=== PATIENT | male | born 1975 | race Hispanic/Latino ===

== ENCOUNTER 2020-06-11 13:35 | Inpatient (IN) | payer OTHER, SELFPAY ==
[~2020-06-11 13:35] MED LIST: Iopamidol-370 76% 500 ML 1 ML ONE; PROPOFOL 200 MG/20 ML VIAL ONE; Rocuronium Bromide 10 MG/ML (10ML VIAL) ONE; Succinylcholine 200 MG/10 ml SYRINGE FS ONE
[2020-06-11] MEDS ORDERED: Acetaminophen 500 MG TAB ONE (13:49)
[2020-06-11] MEDS ORDERED: Aspirin Chewable 81 MG TAB ONE (13:51)
[2020-06-11] MEDS ORDERED: cefTRIAXone\\ROCEPHIN 1 GM VIAL ONE (13:51)
[2020-06-11] MEDS ORDERED: Dexamethasone 10 MG/ML VIAL ONE (13:51)
[2020-06-11] MEDS ORDERED: Azithromycin 500 MG VIAL ONE (13:51)
[2020-06-11 14:05] LABS: #Lymphocytes 0.5 thou/uL (1.20-3.40); #Monocytes 0.4 thou/uL (0.11-0.59); #Neutrophils 9.3 thou/uL (1.40-6.50); %Eosinophils 0.2 % (0.0-10.0); %Lymphocytes 5.3 % (21.0-51.0); %Monocytes 3.4 % (0.0-10.0); %Neutrophils 91.1 % (42.0-75.0); Hemoglobin 13.6 g/dL (14.0-18.0); Mean Corpuscular HGB CONC 34.4 g/dL (32.0-36.0); Mean Corpuscular Hemoglobin 29.8 pg (27.0-31.0); Mean Corpuscular Volume 86.7 fL (78.0-98.0); Mean Platelet Volume 5.5 fL (7.4-10.4); Platelet Count 241 thou/uL (130-400); RBC Distribution Width 11.6 % (11.5-14.5); Red Blood Cell (RBC) Count 4.55 mill/uL (4.70-6.10); White Blood Cell (WBC) Count 10.2 thou/uL (4.8-10.8)
[2020-06-11 14:11] LABS: PTT 28.8 sec (22.9-36.1); Prothrombin Time 13.1 sec (12.0-14.7)
[2020-06-11 14:12] LABS: D-Dimer Test 1.81 *mcg/mL (0.27-0.43)
[2020-06-11] MEDS ORDERED: Enoxaparin Sodium 60 MG/0.6 ML SYRINGE ONE (14:25)
[2020-06-11] MEDS ORDERED: Enoxaparin Sodium 30 MG/0.3 ML SYRINGE ONE (14:25)
[2020-06-11 14:29] LABS: ALT (SGPT) 100 U/L (8-55); AST (SGOT) 111 U/L (5-34); Albumin 3.4 g/dL (3.5-5.0); Alkaline Phosphatase 122 U/L (40-110); Anion Gap 20 mmol/L (10-20); BUN (Urea Nitrogen) 13 mg/dL (8.9-20.6); Bilirubin, Total 0.6 mg/dL (0.2-1.2); Calc. Creatinine Clearance 0 mL/min (70-130); Calcium 8.2 mg/dL (7.8-10.44); Carbon Dioxide 19 mmol/L (22-29); Chloride 98 mmol/L (98-107); Globulin 4.6 g/dL (2.4-3.5); Glucose 157 mg/dL (70-105); Potassium 4.6 mmol/L (3.5-5.1); Sodium 132 mmol/L (136-145)
[2020-06-11 14:42] LABS: CKMB 0.5 ng/mL (0-6.6)
--- NOTE | 2020-06-11 14:50 | RAD ---
PORTABLE CHEST ONE VIEW: 06/11/20 at 2 p.m. HISTORY: Shortness of breath, weakness, fever, cough, headache. FINDINGS: There are no previous exams for comparison. The heart size is borderline. Patchy opacity with patchy more typical opacities are seen in the lung arboleda bilaterally. No pneumothoraces or pleural effusions are seen. IMPRESSION: Findings are suspicious for multifocal pneumonia. POS: OFF
[2020-06-11 14:55] LABS: Bilirubin Negative (Negative); Blood, Urine 1+ (Negative); Clarity Turbid (Clear); Glucose, Urine (Dipstick) 50 mg/dL (Negative); Ketone, Urine Trace mg/dL (Negative); Leukocyte Negative Leu/uL (Negative); Nitrite Negative (Negative); Protein, Urine (Dipstick) 200 mg/dL (Neg-Trace); RBC/HPF 0-3 HPF (0-3); Specific Gravity, Urine 1.028 (1.002-1.036); Squamous Epithelial 0-3 HPF (0-3); Urobilinogen Normal mg/dL (Less than 2)
[2020-06-11 14:56] LABS: Bacteria/HPF 1+ HPF (None Seen)
--- NOTE | 2020-06-11 14:58 | PDOC.FPRHP ---
- History of Present Illness Chief Complaint: sob History of Present Illness: Patient is a 45M with no PMHx that presents to the ED with cc of dyspnea. He reports sob, cough, and fever since 06/07/20. Reportedly had sick contact with a COVID positive patient 10 days ago. Denies n/v/abdominal pain. He reports feeling extremely fatigued and having difficulty taking breaths today. He has only taken for CORRLAES's. He did take ciprofloxacin at the end of May due to feeling sinus congestion. He received the medication from [place] years ago. He has been tolerating PO intake and has good UOP. He endorsed 3 L per day of flui ds. He does not smoke tobacco. His and 2 children from [place] [place] are here for the holidays. ED Course: 1mg/kg lovenox, 1L NS, 1g tylenol, 324mg asa, 1g rocephin (6975), 6mg decadron IV, 500mg azithromycin IV (5649) - Allergies/Adverse Reactions Allergies Allergy/AdvReac Type Severity Reaction Status Date / Time No Known Allergies Allergy Verified 06/11/20 21:18 - History PMHx: None PSHx: None FHx: Mother - HTN, DM Social: Denies drug, alcohol, tobacco use - Review of Systems General: reports: fever/chills, fatigue. denies: weight/appetite/sleep changes Eyes: denies: eye pain, vision changes ENT: denies: nasal congestion, rhinorrhea Respiratory: reports: cough, congestion, shortness of breath Cardiovascular: denies: chest pain, palpitation, edema, orthopnea Gastrointestinal: denies: nausea, vomiting, diarrhea, constipation Genitourinary: denies: incontinence, dysuria Skin: denies: rashes, lesions Musculoskeletal: denies: pain, tenderness, stiffness Neurological: denies: numbness, syncope, seizure, weakness - Vital signs BP: [104/60] HR: [101] RR: [18] Tmax: [100.4F] Pox: [95]% on [HFNC] Wt: [92.99kg] - Physical Exam Constitutional: NAD, awake, alert and oriented -Constitutional: diaphoretic HEENT: PERRLA, EOMI Neck: FROM, no JVD Heart: normal S1/S2, no edema -Heart: regular rhythm, tachycardic -Lungs: bibasilar rales with good air movement Abdomen: soft, non-tender Musculoskeletal: normal structure, normal tone, ROM grossly normal Neurological: no focal deficit, CN II-XII intact, normal sensation Skin: no rash/lesions, good turgor, capillary refill <2 seconds Heme/Lymphatic: no unusual bruising or bleeding, no purpura, no petechia Psychiatric: normal mood and affect, good judgment and insight FMR H&P: Results - Labs Result Diagrams: 06/12/20 04:26 06/12/20 04:26 Lab results: WBC 10.2 thou/uL (4.8-10.8) 06/11/20 13:50 Hgb 13.6 g/dL (14.0-18.0) L 06/11/20 13:50 Hct 39.4 % (42.0-52.0) L 06/11/20 13:50 MCV 86.7 fL (78.0-98.0) 06/11/20 13:50 Plt Count 241 thou/uL (130-400) 06/11/20 13:50 Neutrophils % 91.1 % (42.0-75.0) H 06/11/20 13:50 Sodium 132 mmol/L (136-145) L 06/11/20 13:50 Potassium 4.6 mmol/L (3.5-5.1) 06/11/20 13:50 Chloride 98 mmol/L (98-107) 06/11/20 13:50 Carbon Dioxide 19 mmol/L (22-29) L 06/11/20 13:50 BUN 13 mg/dL (8.9-20.6) 06/11/20 13:50 Creatinine 0.89 mg/dL (0.7-1.3) 06/11/20 13:50 Glucose 157 mg/dL (70-105) H 06/11/20 13:50 Lactic Acid 3.0 mmol/L (0.5-2.2) H 06/11/20 13:50 Calcium 8.2 mg/dL (7.8-10.44) 06/11/20 13:50 Total Bilirubin 0.6 mg/dL (0.2-1.2) 06/11/20 13:50 AST 111 U/L (5-34) H 06/11/20 13:50 ALT 100 U/L (8-55) H 06/11/20 13:50 Alkaline Phosphatase 122 U/L (40-110) H 06/11/20 13:50 CK-MB (CK-2) 0.5 ng/mL (0-6.6) 06/11/20 13:51 B-Natriuretic Peptide 20.1 pg/mL (0-100) 06/11/20 13:44 Serum Total Protein 8.0 g/dL (6.0-8.3) 06/11/20 13:50 Albumin 3.4 g/dL (3.5-5.0) L 06/11/20 13:50 Urine Ketones Trace mg/dL (Negative) A 06/11/20 13:45 Urine Blood 1+ (Negative) A 06/11/20 13:45 Urine Nitrite Negative (Negative) 06/11/20 13:45 Ur Leukocyte Esterase Negative Shamir/uL (Negative) 06/11/20 13:45 Urine RBC 0-3 HPF (0-3) 06/11/20 13:45 Urine WBC 4-6 HPF (0-3) A 06/11/20 13:45 Ur Squamous Epith Cells 0-3 HPF (0-3) 06/11/20 13:45 Urine Bacteria 1+ HPF (None Seen) A 06/11/20 13:45 - EKG Interpretation EKG: sinus tach 110, FL 132, QRS 82, QTc 422, normal axis, no ST changes - Radiology Interpretation Chest x-ray Status: image reviewed by me, report reviewed by me (multifocal pna) CT scan - chest Status: image reviewed by me, report reviewed by me Additional comment: no evidence of PE FMR H&P: A/P - Plan Patient is a 45M with no PMHx admitted for: #Acute hypoxic respiratory failure 2/2 COVID PNA -CXR demonstrates multifocal pna -Given rocephin and azithromycin in the ED, continue pending procal. Would only continue ceftriaxone if procal positive. -6mg decadron in ED, continue -continue daily lovenox -protonix for GI ppx while on decadron -convalescent plasma not indicated -consider remdesivir, though liver enzymes elevated -HFNC, will wean as tolerated #Transaminitis -uncertain etiology, likely 2/2 COVID -denies alcohol use -Will get hep panel #Hyponatremia -sodium 132 -likely 2/2 SIADH related to illness -will continue to monitor #Elevated lactic acid -lactic 3.0, repeat pending -IV maintenance fluids until patient can improve po intake #Normocytic Anemia -H/H 13.6/39.4 -iron studies, B12, folate pending #Elevated troponin -trop 0.066 -patient denies chest pain -EKG demonstrates no ST changes -Will trend Diet: Regular Fluids: LR 120 mls/hr DVT ppx: lovenox Code: Full PCP: [facility] Call Dispo: admitted for respiratory support for acute hypoxic respiratory failure 2/2 COVID pna to telemetry inpatient. FMR H&P: Upper Level - Plan Date/Time: 06/11/20 1458 I, [], have evaluated this patient and agree with findings/plan as outlined by internal auditor resident. Pertinent changes/additions are listed here. Addendum - Attending - Attending Attestation Date/Time: 06/11/20 1600 I personally evaluated the patient and discussed the management with Dr. Adams/Boo/Abhijeet. I agree with the History, Examination, Assessment and Plan documented above with any addition or exceptions noted below. Patient here with 3 days of increasing shortness of breath and malaise. Positive COVID contact recently. On presentation, he was found to be hypoxic with improvement on HFNC. He is currently resting comfortably, reports breathing much improved. CXR c/w multifocal PNA, COVID positive. INdeterminate troponins, elevated Dimer. ABG shows normal oxygenation on current settings. Patient will be admitted to [facility] for Acute hypoxic resp failure 2/2 COVID pneumonia. IVF, ppx lovenox, Remdesevir, steroids. His LFT elevation is likely 2/2 COVID but will trend. Wean O2 as tolerated. Symptomatic treatment as needed.
[2020-06-11] MEDS ORDERED: Ondansetron PF 4 MG/2 ML Vial IVP PRN (15:01)
[2020-06-11] MEDS ORDERED: Ondansetron ODT 4 MG TAB PO PRN (15:01)
[2020-06-11 15:05] LABS: Actual Bicarbonate (HCO3a) 19.4 mEq/L (22-28); Analyzer IN Cardio ER; Base Excess (BEa) -2.2 mEq/L (-2.0 to +3.0); Calcium, Ionized (arterial) 1.04 mmol/L (1.12-1.30); Carboxyhemoglobin (COHb) 0.3 gm% (0.0-3.0); Hemoglobin (Hb) 12.5 g/dL (14.0-18.0); O2 Tension (PaO2), arterial 65.4 mmHg (80.0-100.0); Potassium - ABG Lab 3.77 mmol/L (3.70-5.30); pH, Arterial 7.51 (7.35-7.45)
[2020-06-11 15:07] LABS: SARS-CoV-2 NAA Rapid Test DETECTED (NotDetected)
[2020-06-11] MEDS ORDERED: Guaifenesin DM 100-10/5 ML UDCUP PO PRN (15:09)
[2020-06-11 15:13] LABS: CO2 Tension 25.2 mmHg (35.0-45.0); Puncture Site LRA
[2020-06-11] MEDS ORDERED: REMDESIVIR (EUA) 200 MG in Sodium Chloride 0.9% 250 ML 210 ML IV SCH (16:00)
--- NOTE | 2020-06-11 16:08 | CT ---
CT arteriogram chest with IV contrast and 3-D imaging HISTORY: Dyspnea. FINDINGS: There is good contrast opacification pulmonary arteries and thoracic aorta with normal bran kiesha of the great vessels at the aortic arch. Borderline size reactive appearing lymph nodes are scattered about the mediastinum. Involving each lobe is hazy groundglass opacity, somewhat confluent and predominantly peripheral. Low er lobes greater than upper. No pleural fluid. No lobar consolidation or pneumothorax. IMPRESSION : No evidence of pulmonary embolus. Extensive Multifocal groundglass infiltrates. Correlate for COVID pneumonitis.
[2020-06-11 16:59] LABS: Lactic Acid 1.3 mmol/L (0.5-2.2)
[2020-06-11 17:02] LABS: Iron 13 ug/dL (65-175); Iron Binding Capacity, Total 175 mcg/dL (261-462)
[2020-06-11 17:31] LABS: HBCM Index 0.07 S/CO (0-0.79); Hep A IgM AB Non-Reactive (NonReactive); Hep A IgM S/CO 0.28 S/CO (0-0.79); Hep B Surf Ag Non-Reactive S/CO (NonReactive); Hep C IgG Ab Non-Reactive (NonReactive); Hep C Index 0.08 S/CO (0-0.79); Hepatitis B Core IgM Abs Non-Reactive (NonReactive)
[2020-06-11] MEDS: Lactated Ringer's 1,000 ML IV SCH (17:49)
[2020-06-11 18:15] LABS: Ferritin 3441.4 ng/mL (22-322)
[2020-06-11] MEDS: Acetaminophen 500 MG TAB PO SCH (18:23)
[2020-06-11 20:32] LABS: Troponin I 0.064 ng/mL (< 0.028)
[2020-06-11] MEDS ORDERED: Sodium Chloride 0.9% 1,000 ML IV SCH (22:30)
[2020-06-12] MEDS: Mometasone 200 MCG/Formoterol 5 MCG 120 PUFF INHALER INH SCH ×3 (00:28→17:22)
[2020-06-12] MEDS: Albuterol 200 PUFF (6.7GM INHALER) INH SCH ×8 (00:28→23:00)
[2020-06-12] MEDS: Acetaminophen 500 MG TAB PO SCH ×4 (00:31→17:23)
[2020-06-12] MEDS: Lactated Ringer's 1,000 ML IV SCH ×3 (03:43→18:47)
[2020-06-12 05:05] LABS: #Lymphocytes 0.6 thou/uL (1.20-3.40); #Monocytes 0.4 thou/uL (0.11-0.59); #Neutrophils 9.5 thou/uL (1.40-6.50); %Eosinophils 0.1 % (0.0-10.0); %Lymphocytes 5.7 % (21.0-51.0); %Monocytes 3.9 % (0.0-10.0); %Neutrophils 90.3 % (42.0-75.0); Hemoglobin 12.3 g/dL (14.0-18.0); Hemoglobin A1c 5.6 % (4.0-6.0); Mean Corpuscular Hemoglobin 29.2 pg (27.0-31.0); Mean Corpuscular Volume 88.3 fL (78.0-98.0); Mean Platelet Volume 7.9 fL (7.4-10.4); Platelet Count 257 thou/uL (130-400); RBC Distribution Width 11.5 % (11.5-14.5); Red Blood Cell (RBC) Count 4.21 mill/uL (4.70-6.10); White Blood Cell (WBC) Count 10.6 thou/uL (4.8-10.8)
[2020-06-12 05:27] LABS: ALT (SGPT) 74 U/L (8-55); AST (SGOT) 65 U/L (5-34); Alkaline Phosphatase 101 U/L (40-110); Anion Gap 15 mmol/L (10-20); BUN (Urea Nitrogen) 16 mg/dL (8.9-20.6); Bilirubin, Total 0.4 mg/dL (0.2-1.2); Calc. Creatinine Clearance 173 mL/min (70-130); Calcium 8.1 mg/dL (7.8-10.44); Carbon Dioxide 21 mmol/L (22-29); Chloride 106 mmol/L (98-107); Globulin 3.4 g/dL (2.4-3.5); Glucose 152 mg/dL (70-105); Protein, Total 6.4 g/dL (6.0-8.3); Sodium 138 mmol/L (136-145)
--- NOTE | 2020-06-12 06:36 | PDOC.FM ---
- Subjective Subjective: Pt is similar in appearance to yesterday. He is on high flow oxygen. He is not short of breath nor tachypneic. He has not attempted proning. He denies fever, chills. Endorsed hemoptysis. - Objective Vital Signs & Weight: Vital Signs (12 hours) Temp Pulse Resp BP Pulse Ox 06/12/20 03:53 98.1 F 83 18 135/76 94 L 06/12/20 00:43 98.5 F 81 18 123/69 94 L 06/11/20 21:26 99.6 F 74 18 134/63 100 06/11/20 20:00 100 Weight Weight 94.347 kg I&O: 06/10/20 06/11/20 06/12/20 06:59 06:59 06:59 Intake Total 2600 Output Total 875 Balance 1725 Result Diagrams: 06/12/20 04:26 06/12/20 04:26 Phys Exam - Physical Examination Constitutional: NAD HEENT: PERRLA, sclera anicteric Neck: no JVD, full ROM Respiratory: no wheezing, no rales, no rhonchi Cardiovascular: RRR, no significant murmur Gastrointestinal: soft, no distention Musculoskeletal: no edema, pulses present Neurological: normal sensation, moves all 4 limbs Psychiatric: normal affect, A&O x 3 Skin: no rash, cap refill <2 seconds Dx/Plan - Plan Plan: Patient is a 45M with no PMHx admitted for: #Acute hypoxic respiratory failure 2/2 COVID PNA -will start ceftriaxone -continue remdesivir -continue dexamethasone -continue high flow and prone as needed -scheduled tylenol -LR 120mls/hr -encourage PO intake -CTA negative #Transaminitis - improving -uncertain etiology, likely 2/2 COVID -denies alcohol use -hep panel neg #Hyponatremia - resolved -likely 2/2 SIADH related to illness -will continue to monitor #Normocytic Anemia -H/H 13.6/39.4 -assess in oupt setting when pt is not critically ill #Demand Ischemia - indeterminate trop Diet: Regular Fluids: LR 120 mls/hr DVT ppx: lovenox Code: Full PCP: [facility] Call Dispo: admitted for respiratory support for acute hypoxic respiratory failure 2/2 COVID pna to telemetry inpatient. Addendum - Attending - Attending Attestation Date/Time: 06/12/20 2198 I personally evaluated the patient and discussed the management with Dr. Haddad. I agree with the History, Examination, Assessment and Plan documented above with any addition or exceptions noted below. Patient feeling somewhat better today, reports respiratory status much improved. Continues to require HFNC at high FiO2, but low normal sats achieved. Continue steroids, Remdesevir. Wean as tolerated. He did report some coughing of blood tinged sputum this morning. Will continue to monitor.
[2020-06-12] MEDS: Dexamethasone 4 MG TAB PO SCH (08:28)
[2020-06-12] MEDS ORDERED: Enoxaparin Sodium 40 MG/0.4 ML SYRINGE SC SCH (09:00)
[2020-06-12] MEDS ORDERED: cefTRIAXone Sodium 1 MG in Syringe 0 ML IVPB SCH (11:00)
[2020-06-12] MEDS: cefTRIAXone\\ROCEPHIN 1 GM in Sodium Chloride 0.9% 100 ML IVPB SCH (14:05)
[2020-06-12] MEDS: REMDESIVIR (EUA) 100 MG in Sodium Chloride 0.9% 250 ML 230 ML IV SCH (17:22)
[2020-06-13] MEDS: Acetaminophen 500 MG TAB PO SCH ×4 (00:13→18:30)
[2020-06-13] MEDS: Lactated Ringer's 1,000 ML IV SCH ×3 (01:35→18:04)
[2020-06-13] MEDS: Albuterol 200 PUFF (6.7GM INHALER) INH SCH ×6 (02:45→22:21)
[2020-06-13] MEDS: Mometasone 200 MCG/Formoterol 5 MCG 120 PUFF INHALER INH SCH ×2 (05:29→18:53)
--- NOTE | 2020-06-13 06:49 | PDOC.FM ---
- Subjective Subjective: Pt is 45 yo male who was in respiratory distress this morning. Team notified and ordered a CXR, ABG, CBC, BMP. Flynn weiner called shortly after due to oxygen saturations 60-80%. He was transferred to ICU and started on Bipap. He was given ativan 0.5 mg for anxiety. - Objective Vital Signs & Weight: Vital Signs (12 hours) Temp Pulse Resp BP Pulse Ox 06/13/20 04:00 97.8 F 86 18 144/78 H 90 L 06/13/20 00:13 99.1 F 06/12/20 23:56 99.1 F 93 18 120/72 95 06/12/20 20:30 92 L 06/12/20 20:00 98.1 F 93 18 125/70 88 L Weight Weight 97.522 kg I&O: 06/11/20 06/12/20 06/13/20 06:59 06:59 06:59 Intake Total 2600 3575 Output Total 875 1300 Balance 1725 2275 Result Diagrams: 06/13/20 06:56 06/13/20 06:56 Radiology Reviewed by me: Yes Phys Exam - Physical Examination uncomfortable appearing HEENT: moist MMs, sclera anicteric Neck: no JVD, full ROM Respiratory: no wheezing, no rhonchi bibasilar rhonchi Cardiovascular: RRR, no significant murmur Gastrointestinal: soft, no distention Neurological: non-focal, normal sensation Psychiatric: normal affect, A&O x 3 Skin: no rash, cap refill <2 seconds Dx/Plan - Plan Plan: Patient is a 45M with no PMHx admitted for: #Acute hypoxic respiratory failure 2/2 COVID PNA -ceftriaxone, steroids, remdesivir; not candidate for conv plasma -nursing staff note he is desat'ing on high flow. Discussed need to prone. Will order ABG, BMP, CBC, CXR this am. -pulm consulted, appreciate recs #Transaminitis - improving -uncertain etiology, likely 2/2 COVID -denies alcohol use -hep panel neg #Hyponatremia - resolved -likely 2/2 SIADH related to illness -will continue to monitor #Normocytic Anemia -H/H 13.6/39.4 -assess in oupt setting when pt is not critically ill #Demand Ischemia - indeterminate trop Diet: Regular Fluids: D/C fluids, Good PO intake DVT ppx: lovenox Code: Full PCP: [facility] Call Dispo: admitted for respiratory support for acute hypoxic respiratory failure / COVID pna to imcu Addendum - Attending - Attending Attestation Date/Time: 06/13/20 5616 I personally evaluated the patient and discussed the management with Dr. Haddad. I agree with the History, Examination, Assessment and Plan documented above with any addition or exceptions noted below. Patient with worsening hypoxia and agitation this morning. Transitioned to Bipap and to the IMCU, but then had worsening and would not tolerate the Bipap mask. He was intubated in a code blue situation in the CCU. He will be proned by Pulm and continued on vent. Continue COVID care.
[2020-06-13 07:10] LABS: Actual Bicarbonate (HCO3a) 20.5 mEq/L (22-28); Base Excess (BEa) -0.4 mEq/L (-2.0 to +3.0); Calcium, Ionized (arterial) 1.15 mmol/L (1.12-1.30); Carboxyhemoglobin (COHb) 0.5 gm% (0.0-3.0); Hemoglobin (Hb) 13.4 g/dL (14.0-18.0); pH, Arterial 7.54 (7.35-7.45)
[2020-06-13 07:25] LABS: #Basophils 0.1 thou/uL (0.0-0.2); #Lymphocytes 0.5 thou/uL (1.20-3.40); #Monocytes 0.6 thou/uL (0.11-0.59); #Neutrophils 12.2 thou/uL (1.40-6.50); %Basophils 0.7 % (0.0-1.0); %Eosinophils 0.1 % (0.0-10.0); %Lymphocytes 3.4 % (21.0-51.0); %Monocytes 4.4 % (0.0-10.0); %Neutrophils 91.4 % (42.0-75.0); Hemoglobin 12.6 g/dL (14.0-18.0); Mean Corpuscular HGB CONC 34.2 g/dL (32.0-36.0); Mean Corpuscular Volume 87.7 fL (78.0-98.0); Platelet Count 275 thou/uL (130-400); RBC Distribution Width 11.8 % (11.5-14.5); White Blood Cell (WBC) Count 13.3 thou/uL (4.8-10.8)
[2020-06-13 07:40] LABS: Anion Gap 17 mmol/L (10-20); BUN (Urea Nitrogen) 15 mg/dL (8.9-20.6); Calc. Creatinine Clearance 192 mL/min (70-130); Calcium 7.9 mg/dL (7.8-10.44); Carbon Dioxide 21 mmol/L (22-29); Chloride 108 mmol/L (98-107); Glucose 151 mg/dL (70-105); Potassium 3.6 mmol/L (3.5-5.1); Sodium 142 mmol/L (136-145)
[2020-06-13 07:41] LABS: CO2 Tension 24.4 mmHg (35.0-45.0); O2 Tension (PaO2), arterial 35.1 mmHg (80.0-100.0)
[2020-06-13 07:42] LABS: Puncture Site RRA
[2020-06-13] MEDS: Lorazepam 2 MG/ML VIAL ONE ×2 (07:43→07:44)
[2020-06-13] MEDS ORDERED: Lorazepam 2 MG/ML VIAL SLOW IVP SCH (08:00)
--- NOTE | 2020-06-13 08:02 | RAD ---
Chest one view HISTORY: Hypoxia. COMPARISON: 06/11/2020. FINDINGS: Cardiac silhouette is magnified and now more obscured by widespread groundglass and patchy infiltrate throughout each lung. Pulmonary vasculature also predominantly obscured. Widespread air bronchograms. Partial obscuration of the hemidiaphragms. No significant pleural fluid. No evidence of pneumothorax. IMPRESSION : Worsening radiographic appearance of widespread infiltrates.
--- NOTE | 2020-06-13 08:41 | CON ---
DATE OF CONSULTATION: 06/13/2020 TIME SPENT: 35 minutes of critical care time. HISTORY OF PRESENT ILLNESS: I have been consulted by the resident to see Mr. Vincent, who is a 45-year-old male with COVID pneumonia, who was initially symptomatic on 06/07/2020 with presenting symptom of fever. He was hospitalized here on 06/11/2020. He has had progressive worsening of his O2 sats. He was brought to the ICU today and placed on BiPAP. He is extremely tachypneic, and I feel at some point, will probably end up intubate him. PAST MEDICAL HISTORY: Essentially negative up to the time of admission. PAST SURGICAL HISTORY: None. FAMILY MEDICAL HISTORY: Remarkable for high blood pressure and diabetes. SOCIAL HISTORY: He is a nonsmoker. Does not consume alcohol. Does not use illicit drugs. 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 ALLERGIES: NONE. REVIEW OF SYSTEMS: Twelve-point review of systems was negative except for his COVID symptoms. PHYSICAL EXAMINATION: VITAL SIGNS: Temperature 97.8; pulse 86; respirations in the 40s; O2 saturation dropping as low as 60 on nasal cannula, now up to 95% on 80% BiPAP; blood pressure 144/78. GENERAL: The patient is an obese male, who is on BiPAP. He is 5 feet 6 inches, weight is 215 pounds with a BMI of 34. HEENT: Unremarkable. NECK: No adenopathy or JVD. LUNGS: Diffuse crackles. CARDIOVASCULAR: S1 and S2. Slightly tachycardic. No murmur. ABDOMEN: Soft, nontender, and nondistended. EXTREMITIES: No clubbing, cyanosis, or edema. No visible rashes. LABORATORY DATA: ABG; pH 7.54, pCO2 of 24, pO2 of 35, that was on 60% high-flow nasal cannula. White blood cell count 13.2, hematocrit 36.9, and platelet count 275. His sodium is 142, potassium 3.6, chloride 108, CO2 of 21, BUN 15, creatinine 0.6, and glucose 151. His x-ray shows diffuse bilateral infiltrates. ASSESSMENT: 1. COVID-19 pneumonia - severe with acute hypoxic respiratory failure. 2. Probable underlying diabetes mellitus. 3. Obesity. PLAN: 1. We will try the BiPAP and see how he does. I would not be surprised at all if he ends up needing to be intubated. 2. He is currently on remdesivir and is scheduled to finish that on 06/15. 3. I have increased his anticoagulation. 4. We have increased his steroids. 5. Add vitamin D, vitamin C, and zinc if available. 6. Try Precedex drip. Job ID: [id number]
[2020-06-13] MEDS: Dexamethasone 4 mg/ml Vial SLOW IVP SCH ×2 (08:49→20:07)
[2020-06-13] MEDS: Zinc Sulfate 220 MG CAP PO SCH (08:50)
[2020-06-13] MEDS ORDERED: Lorazepam 2 MG/ML VIAL ONE (10:08)
[2020-06-13] MEDS ORDERED: Ventilator Sedation Protocol 1 EACH FS ONE ×2 (10:12→10:44)
[2020-06-13] MEDS ORDERED: Electrolyte Replacement Protocol 1 EACH FS ONE (10:44)
[2020-06-13] MEDS ORDERED: Rocuronium Bromide 10 MG/ML (10ML VIAL) IVP PRN (10:44)
[2020-06-13] MEDS ORDERED: Propofol 1,000 MG/100 ML VIAL IV PRN (10:45)
[2020-06-13] MEDS ORDERED: Morphine 2 MG/ML VIAL SLOW IVP PRN ×2 (10:45)
[2020-06-13] MEDS ORDERED: fentaNYL Citrate/PF 2,000 MCG in Sodium Chloride 0.9% 60 ML IV SCH (10:45)
[2020-06-13] MEDS ORDERED: DISCONTINUE PREVIOUS NARCOTIC PAIN MEDICATIONS AND BENZODIAZEPINES FS SCH (10:45)
[2020-06-13] MEDS ORDERED: Propofol BOLUS 1,000 MG/100 ML VIAL IV PRN ×2 (10:45)
[2020-06-13] MEDS ORDERED: Lorazepam 2 MG/ML VIAL SLOW IVP PRN (10:45)
[2020-06-13] MEDS ORDERED: Fentanyl BOLUS 250 ML IVPB PRN ×2 (10:45)
--- NOTE | 2020-06-13 10:47 | RAD ---
EXAM: XR Chest 1 View Portable PROVIDED CLINICAL HISTORY: Respiratory insufficiency COMPARISON: 06/23/2020 7:38 AM FINDINGS: Interval placement of endotracheal tube, tip of which projects in the region of the thoracic inlet. I nterval placement of enteric catheter, the tip of which is not visualized but is below the diaphragm. Additional significant interval change with respect to the prior examination is not appare nt. IMPRESSION: As above.
[2020-06-13] MEDS: Enoxaparin Sodium 80 MG/0.8 ML SYRINGE SC SCH ×2 (10:53→20:08)
[2020-06-13] MEDS: Ascorbic Acid 500 mg Chewable Tablet PO SCH (10:53)
[2020-06-13] MEDS ORDERED: Electrolyte Replacement Protocol FS PRN (11:00)
--- NOTE | 2020-06-13 11:09 | OP ---
DATE OF PROCEDURE: 06/13/2020 The patient took off his BiPAP mask and subsequently desatted to the point where he needed to be intubated. I preoxygenate him with 100% FiO2 and intubated him with a 7.5 endotracheal tube via GlideScope after giving him a total of 20 mg of etomidate IV and 100 mg succinylcholine. An OG tube was placed. X-ray confirmed tube placement. The patient was placed on mechanical ventilation. He will also be placed in a prone position. Condition is critical. Job ID: [id number]
--- NOTE | 2020-06-13 11:29 | PDOC.EVN ---
Event Note - Event Note Event Note: Pt did not tolerate Bipap, remained hypoxic. He was very anxioius likely 2/2 hypoxia. ABG before bipap revealed pO2 in 30's. Code Blue initiated and pt was intubated by Dr. Sommer. Currently proned. CXR revealed good placement of ET tube, NG tube. Transfer to ICU status. Castanon placed. Sat's were trending up with ventilator.
[2020-06-13] MEDS: Dexamethasone 4 MG TAB PO SCH (11:50)
[2020-06-13] MEDS: Vecuronium 10 MG VIAL IVP PRN ×4 (12:41→17:17)
[2020-06-13] MEDS: Lorazepam 2 MG/ML VIAL SLOW IVP PRN (12:41)
[2020-06-13] MEDS: Propofol 1,000 MG/100 ML VIAL IV PRN ×3 (14:49→21:48)
[2020-06-13] MEDS: cefTRIAXone\\ROCEPHIN 1 GM in Sodium Chloride 0.9% 100 ML IVPB SCH (15:50)
[2020-06-13] MEDS: REMDESIVIR (EUA) 100 MG in Sodium Chloride 0.9% 250 ML 230 ML IV SCH (18:04)
[2020-06-13] MEDS: Cholecalciferol 1,000 UNITS (25 MCG) TAB PO SCH (20:08)
[2020-06-14] MEDS: Acetaminophen 500 MG TAB PO SCH ×4 (00:18→20:02)
[2020-06-14] MEDS: Propofol 1,000 MG/100 ML VIAL IV PRN ×8 (01:07→22:00)
[2020-06-14] MEDS: Albuterol 200 PUFF (6.7GM INHALER) INH SCH ×6 (02:55→22:10)
[2020-06-14] MEDS: Vecuronium 10 MG VIAL IVP PRN ×9 (03:54→23:46)
[2020-06-14 04:22] LABS: Anion Gap 14 mmol/L (10-20); BUN (Urea Nitrogen) 16 mg/dL (8.9-20.6); Calc. Creatinine Clearance 179 mL/min (70-130); Calcium 7.7 mg/dL (7.8-10.44); Carbon Dioxide 23 mmol/L (22-29); Chloride 110 mmol/L (98-107); Glucose 172 mg/dL (70-105); Potassium 3.9 mmol/L (3.5-5.1); Sodium 143 mmol/L (136-145)
[2020-06-14 04:27] LABS: Band 17 % (5-11); Hemoglobin 11.4 g/dL (14.0-18.0); Lymphocytes 3 % (21-51); MDiff Complete? YES; Mean Corpuscular Hemoglobin 30.2 pg (27.0-31.0); Mean Corpuscular Volume 88.7 fL (78.0-98.0); Mean Platelet Volume 8.3 fL (7.4-10.4); Monocytes 3 % (0-10); Neutrophil 77 % (42-75); Platelet Count 229 thou/uL (130-400); Platelet Morphology Comment Appears Adequate; RBC Distribution Width 11.9 % (11.5-14.5); Red Blood Cell (RBC) Count 3.79 mill/uL (4.70-6.10); White Blood Cell (WBC) Count 10.1 thou/uL (4.8-10.8)
[2020-06-14] MEDS: fentaNYL Citrate/PF 2,000 MCG in Sodium Chloride 0.9% 60 ML IV SCH (06:01)
--- NOTE | 2020-06-14 07:05 | PDOC.FM ---
- Subjective Subjective: Intubated and sedated. Required paralytics due to severe agitation. Discussed care with on 06/13. - Objective Vital Signs & Weight: Vital Signs (12 hours) Temp Resp Pulse Ox 06/14/20 06:00 26 H 06/14/20 04:00 26 H 06/14/20 02:00 99.2 F 26 H 06/14/20 00:00 26 H 06/13/20 22:00 26 H 06/13/20 20:00 96.9 F L 26 H 100 Weight Admit Weight 94.347 kg Weight 89.9 kg Most Recent Monitor Data Heart Rate from ECG 81 NIBP 110/67 NIBP BP-Mean 81 Respiration from ECG 26 SpO2 94 I&O: 06/13/20 06/14/20 06/15/20 06:59 06:59 06:59 Intake Total 3575 1056.2 Output Total 1300 1785 Balance 2275 -728.8 Result Diagrams: 06/14/20 03:10 06/14/20 03:10 Phys Exam - Physical Examination intubated and sedated HEENT: sclera anicteric Neck: no JVD, full ROM Respiratory: no wheezing, clear to auscultation bilateral Cardiovascular: RRR, no significant murmur Gastrointestinal: no distention, positive bowel sounds Skin: no rash, cap refill <2 seconds Dx/Plan - Plan Plan: Patient is a 45M with no PMHx admitted for: #Acute hypoxic respiratory failure 2/2 COVID PNA Currently intubated and sedated -ceftriaxone, steroids, remdesivir; procal pending -Vit D, Vit C -pulm consulted, appreciate recs -OG tube will be placed today, will need to start diet #Transaminitis - improving -uncertain etiology, likely 2/2 COVID -denies alcohol use -hep panel neg #Hyponatremia - resolved -likely 2/2 SIADH related to illness -will continue to monitor #Normocytic Anemia -H/H 13.6/39.4 -assess in oupt setting when pt is not critically ill #Demand Ischemia - indeterminate trop Diet: Tube feeds, digital strategy director consulted Fluids: D/C fluids DVT ppx: lovenox Code: Full PCP: [facility] Call Dispo: admitted for respiratory support for acute hypoxic respiratory failure 2/2 COVID pna to icu Addendum - Attending - Attending Attestation Date/Time: 06/14/20 1046 I personally evaluated the patient and discussed the management with Dr. Haddad. I agree with the History, Examination, Assessment and Plan documented above with any addition or exceptions noted below. Patient here with hypoxic resp failure 2/2 COVID. Decompensated yesterday and had to be intubated. Now on ventilator, having critical illness due to COVID. His status is overall stable at this time. Having some issues with agitation, will add benzo therapy in case he has a history of alcoholism which may be co ntributing to his agitation. Pulm on board. Continue steroids.
[2020-06-14] MEDS: Mometasone 200 MCG/Formoterol 5 MCG 120 PUFF INHALER INH SCH ×2 (07:30→18:56)
[2020-06-14] MEDS ORDERED: Sterile Water 10 ML ONE (07:44)
[2020-06-14] MEDS: Lorazepam 2 MG/ML VIAL SLOW IVP PRN ×5 (07:53→15:39)
--- NOTE | 2020-06-14 08:35 | RAD ---
Portable frontal chest radiograph: 06/14/2020 COMPARISON: 06/13/2020 HISTORY: Pneumonia FINDINGS: Stable endotracheal tube. Rotation to the left limits detailed assessment. There is severe airspace disease in the perihilar regions and both lung bases, left greater than right. Findings have markedly worsened when compared to the 06/11/2020 examination bilaterally and are worsened when co mpared to the prior study performed at 06/13/2020 at 10:25 AM. The nasogastric tube has been removed. IMPRESSION: Worsening extensive airspace disease as detailed above.
--- NOTE | 2020-06-14 09:33 | PRG ---
DATE OF SERVICE: 06/14/2020 35 minutes critical time. SUBJECTIVE: The patient remains prone on mechanical ventilation. I have told he sat up and pulled out his NG-tube yesterday, and it is yet to be replaced. OBJECTIVE: VITAL SIGNS: Temperature 100.2, pulse 71, blood pressure 114/65. 24-hour intake 1056, output 1785. HEENT: Unremarkable. NECK: No adenopathy or JVD. LUNGS: Inspiratory crackles bilaterally. CARDIAC: S1, S2. Regular. ABDOMEN: Soft. EXTREMITIES: No edema. LABORATORY DATA: White blood cell count 10, hematocrit 33.6, platelet count 229. Sodium 143, potassium 3.9, chloride 110, CO2 of 23, BUN 16, creatinine 0.7, glucose 172. Chest x-ray continues to show bilateral infiltrates. ASSESSMENT: 1. Coronavirus disease 2019 pneumonia. 2. Acute hypoxic respiratory failure. 3. Morbid obesity. 4. Hyperglycemia, aggravated by steroid use. PLAN: 1. Continue anticoagulation, steroid. 2. Continue prone position next 24 hours. I have reduced his high PEEP pressure to 28, as that gave him continued appropriate tidal volumes of around 600 mL. 3. We will add lactated Ringer's, so I have switched from D5 half-normal saline. Once his OG tube is replaced, then he needs to start enteral tube feeds. Job ID: [id number]
[2020-06-14] MEDS: Ascorbic Acid 500 mg Chewable Tablet PO SCH (09:40)
[2020-06-14] MEDS: Dexamethasone 4 mg/ml Vial SLOW IVP SCH ×2 (09:41→20:02)
[2020-06-14] MEDS: Pantoprazole 40 MG VIAL IVP SCH (09:44)
[2020-06-14] MEDS: Enoxaparin Sodium 80 MG/0.8 ML SYRINGE SC SCH ×2 (09:44→20:04)
[2020-06-14] MEDS: Dextrose 5 %-0.45 % NaCl 1,000 ML IV SCH (09:45)
[2020-06-14] MEDS: Zinc Sulfate 220 MG CAP PO SCH (09:45)
[2020-06-14] MEDS: Lorazepam 2 MG/ML VIAL SLOW IVP SCH ×3 (11:45→23:46)
[2020-06-14] MEDS: cefTRIAXone\\ROCEPHIN 1 GM in Sodium Chloride 0.9% 100 ML IVPB SCH (13:54)
[2020-06-14] MEDS: Lactated Ringer's 1,000 ML IV SCH ×2 (14:56→20:04)
[2020-06-14] MEDS: REMDESIVIR (EUA) 100 MG in Sodium Chloride 0.9% 250 ML 230 ML IV SCH (17:48)
[2020-06-14] MEDS: Cholecalciferol 1,000 UNITS (25 MCG) TAB PO SCH (20:02)
[2020-06-15] MEDS: Acetaminophen 500 MG TAB PO SCH ×4 (01:30→17:50)
[2020-06-15] MEDS: fentaNYL Citrate/PF 2,000 MCG in Sodium Chloride 0.9% 60 ML IV SCH ×2 (01:40→21:17)
[2020-06-15] MEDS: Propofol 1,000 MG/100 ML VIAL IV PRN ×7 (01:41→22:00)
[2020-06-15] MEDS: Dextrose 5 %-0.45 % NaCl 1,000 ML IV SCH ×2 (01:48→11:30)
[2020-06-15] MEDS: Albuterol 200 PUFF (6.7GM INHALER) INH SCH ×6 (02:59→23:30)
[2020-06-15 04:43] LABS: #Lymphocytes 0.3 thou/uL (1.20-3.40); #Monocytes 0.3 thou/uL (0.11-0.59); #Neutrophils 9.5 thou/uL (1.40-6.50); %Basophils 0.1 % (0.0-1.0); %Eosinophils 0.1 % (0.0-10.0); %Lymphocytes 3.2 % (21.0-51.0); %Monocytes 3.2 % (0.0-10.0); %Neutrophils 93.4 % (42.0-75.0); Hemoglobin 11.5 g/dL (14.0-18.0); Mean Corpuscular HGB CONC 32.6 g/dL (32.0-36.0); Mean Corpuscular Hemoglobin 29.2 pg (27.0-31.0); Mean Corpuscular Volume 89.5 fL (78.0-98.0); Mean Platelet Volume 8.2 fL (7.4-10.4); Platelet Count 251 thou/uL (130-400); Red Blood Cell (RBC) Count 3.93 mill/uL (4.70-6.10); White Blood Cell (WBC) Count 10.1 thou/uL (4.8-10.8)
[2020-06-15] MEDS: Lactated Ringer's 1,000 ML IV SCH ×3 (04:47→19:15)
[2020-06-15 05:04] LABS: Anion Gap 13 mmol/L (10-20); BUN (Urea Nitrogen) 14 mg/dL (8.9-20.6); Calc. Creatinine Clearance 180 mL/min (70-130); Calcium 7.4 mg/dL (7.8-10.44); Carbon Dioxide 24 mmol/L (22-29); Chloride 108 mmol/L (98-107); Glucose 181 mg/dL (70-105); Potassium 4.2 mmol/L (3.5-5.1); Sodium 141 mmol/L (136-145)
[2020-06-15] MEDS: Lorazepam 2 MG/ML VIAL SLOW IVP SCH ×3 (05:52→17:50)
--- NOTE | 2020-06-15 06:48 | PDOC.FM ---
- Subjective Subjective: Overnight, the patient fevered to 100.8F. No other events per nursing or night team. Patient currently ventilated, sedated and proned. - Objective MAR Reviewed: Yes Vital Signs & Weight: Vital Signs (12 hours) Temp Pulse Resp BP Pulse Ox 06/15/20 06:00 26 H 06/15/20 05:54 99.9 F H 06/15/20 04:00 26 H 06/15/20 03:00 70 06/15/20 02:00 100.8 F H 26 H 06/15/20 01:30 100.8 F H 06/15/20 00:00 26 H 06/14/20 22:10 73 115/66 06/14/20 22:00 26 H 06/14/20 20:00 98.8 F 26 H 98 06/14/20 18:57 67 Weight Admit Weight 94.347 kg Weight 91 kg Most Recent Monitor Data Heart Rate from ECG 70 NIBP 114/67 NIBP BP-Mean 82 Respiration from ECG 26 SpO2 96 I&O: 06/13/20 06/14/20 06/15/20 06:59 06:59 06:59 Intake Total 3575 1056.2 1750.9 Output Total 1300 1785 1420 Balance 2275 -728.8 330.9 Result Diagrams: 06/15/20 04:20 06/15/20 04:20 Phys Exam - Physical Examination Constitutional: NAD HEENT: moist MMs Neck: supple coarse breath sounds in posterior lungs with exp wheeze Cardiovascular: RRR Gastrointestinal: soft Musculoskeletal: no edema sedated and on mech ventilation Skin: no rash Dx/Plan - Plan Plan: Patient is a 45M with no PMHx admitted for: #Acute hypoxic respiratory failure 2/2 COVID PNA Currently intubated and sedated. s/p remdesivir. - Continue ceftriaxone, steroids; Procal 1.11 - Will trend Ddimer and procal for 06/16 - Continue Vit D, Vit C, zinc - Pulm consulted, appreciate recs. Will ween as tolerated. Continue proning. - OG tube will be placed 06/14, start tube feeds. Will give two 250ml flushes to make up free water deficit. #Transaminitis - improving Uncertain etiology, likely 2/2 COVID. Denies alcohol use - Hep panel neg, GGT elevated #Hyponatremia - resolved likely 2/2 SIADH related to illness - will continue to monitor #Normocytic Anemia H/H 13.6/39.4 -Assess in oupt setting when pt is not critically ill #Demand Ischemia - indeterminate trop Diet: Tube feeds, school office manager consulted Fluids: D/C fluids DVT ppx: lovenox Code: Full PCP: [facility] Call Dispo: admitted for respiratory support for acute hypoxic respiratory failure 2/2 COVID pna to icu Case discussed with Dr. Ramachandran Addendum - Attending - Attending Attestation Date/Time: 06/15/20 1680 I personally evaluated the patient and discussed the management with Dr. Neumann I agree with the History, Examination, Assessment and Plan documented above with any addition or exceptions noted below. Poor prognosis and guarded. Now prone to attempt to recruit alveoli. High PEEP/Bi-level vent settings (28:12) low grade temp of 100.8 overnight. No evidence of superimposed bacterial infection. Continue to trend labs. Close monitoring throughout the day. Demetris
[2020-06-15] MEDS: Vecuronium 10 MG VIAL IVP PRN ×4 (06:57→18:07)
[2020-06-15] MEDS: Mometasone 200 MCG/Formoterol 5 MCG 120 PUFF INHALER INH SCH ×2 (07:12→18:31)
[2020-06-15] MEDS: Zinc Sulfate 220 MG CAP PO SCH (08:34)
[2020-06-15] MEDS: Ascorbic Acid 500 mg Chewable Tablet PO SCH (08:34)
[2020-06-15] MEDS: Dexamethasone 4 mg/ml Vial SLOW IVP SCH ×2 (08:34→20:47)
[2020-06-15] MEDS: Enoxaparin Sodium 80 MG/0.8 ML SYRINGE SC SCH ×2 (08:34→20:56)
[2020-06-15] MEDS: Pantoprazole 40 MG VIAL IVP SCH (08:34)
--- NOTE | 2020-06-15 09:57 | RAD ---
Exam: Chest one view HISTORY:Pneumonia Comparison: 06/14/2020 FINDINGS: Lines and tubes: Interval placement of a nasogastric tube, extending beyond the diaphragm. Stable end otracheal tube. Cardiac silhouette:Stable cardiomegaly Aorta: Unremarkable Pulmonary vessels: Normal Costophrenic angles: Stable bilateral pleural effusions LUNGS: Stable multi lobar interstitial and alveolar opacities Pneumothorax: None Osseous abnormalities: None IMPRESSION: 1. Interval placement of nasogastric tube. 2. Stable multi lobar pneumonia.
[2020-06-15] MEDS: cefTRIAXone\\ROCEPHIN 1 GM in Sodium Chloride 0.9% 100 ML IVPB SCH (13:25)
[2020-06-15] MEDS: REMDESIVIR (EUA) 100 MG in Sodium Chloride 0.9% 250 ML 230 ML IV SCH (17:50)
--- NOTE | 2020-06-15 18:22 | PRG ---
DATE OF SERVICE: 06/15/2020 SUBJECTIVE: Sukhdev Vincent is hemodynamically stable. OBJECTIVE: VITAL SIGNS: Heart rate is in the 60s, blood pressure 114/68, respiratory rate is 26, oximetry is in the low 90s. FiO2 is at 40%. LUNGS: He has equal breath sounds. HEART: Regular rhythm. ABDOMEN: Soft. EXTREMITIES: Without edema. LABORATORY DATA: Chest x-ray is unchanged consistent with COVID pneumonia. White count 10.1, hemoglobin platelets 251. Sodium 141, potassium 4.2, chloride 108, bicarb 24, BUN 14, and creatinine 0.6. IMPRESSION: COVID pneumonia with respiratory failure, clinically stable. Hopefully, we will start seeing some slow improvement. Critical care time 30 min. Job ID: [id number] MTDD
[2020-06-15] MEDS: Cholecalciferol 1,000 UNITS (25 MCG) TAB PO SCH (20:56)
[2020-06-16] MEDS: Lorazepam 2 MG/ML VIAL SLOW IVP SCH ×5 (00:22→23:42)
[2020-06-16] MEDS: Acetaminophen 500 MG TAB PO SCH ×4 (00:22→17:32)
[2020-06-16] MEDS: Propofol 1,000 MG/100 ML VIAL IV PRN ×7 (01:26→23:48)
[2020-06-16] MEDS: Lactated Ringer's 1,000 ML IV SCH (03:24)
[2020-06-16] MEDS: Albuterol 200 PUFF (6.7GM INHALER) INH SCH ×6 (03:33→23:25)
[2020-06-16 05:11] LABS: ALT (SGPT) 76 U/L (8-55); AST (SGOT) 69 U/L (5-34); Albumin 2.4 g/dL (3.5-5.0); Alkaline Phosphatase 105 U/L (40-110); Anion Gap 13 mmol/L (10-20); BUN (Urea Nitrogen) 17 mg/dL (8.9-20.6); Bilirubin, Total 0.6 mg/dL (0.2-1.2); Calc. Creatinine Clearance 197 mL/min (70-130); Calcium 7.5 mg/dL (7.8-10.44); Carbon Dioxide 24 mmol/L (22-29); Chloride 105 mmol/L (98-107); Globulin 2.9 g/dL (2.4-3.5); Glucose 174 mg/dL (70-105); Potassium 4.5 mmol/L (3.5-5.1); Protein, Total 5.3 g/dL (6.0-8.3); Sodium 137 mmol/L (136-145)
[2020-06-16 05:36] LABS: Hemoglobin 11.7 g/dL (14.0-18.0); Lymphocytes 1 % (21-51); MDiff Complete? YES; Mean Corpuscular HGB CONC 32.1 g/dL (32.0-36.0); Mean Corpuscular Hemoglobin 28.8 pg (27.0-31.0); Mean Corpuscular Volume 89.7 fL (78.0-98.0); Mean Platelet Volume 8.7 fL (7.4-10.4); Metamyelocyte 3 % (0-0); Monocytes 1 % (0-10); Neutrophil 95 % (42-75); Platelet Count 279 thou/uL (130-400); Platelet Morphology Comment Appears Adequate; RBC Morphology Normal; Red Blood Cell (RBC) Count 4.06 mill/uL (4.70-6.10)
--- NOTE | 2020-06-16 06:45 | PDOC.FM ---
- Subjective Subjective: NAEO. Nurse reports good urine output. Reports that if not paralyzed he is desatting. He was started on tube feeds yesterday. No other concerns per nursing. - Objective MAR Reviewed: Yes Vital Signs & Weight: Vital Signs (12 hours) Temp Pulse Resp BP Pulse Ox 06/16/20 06:00 26 H 06/16/20 05:33 98.8 F 62 26 H 06/16/20 04:00 26 H 06/16/20 03:35 61 122/75 06/16/20 02:00 26 H 06/16/20 00:00 26 H 06/15/20 23:30 61 06/15/20 22:00 26 H 06/15/20 20:18 90 L 06/15/20 20:00 26 H Weight Admit Weight 94.347 kg Weight 91.2 kg Most Recent Monitor Data Heart Rate from ECG 60 NIBP 118/73 NIBP BP-Mean 88 Respiration from ECG 26 SpO2 92 I&O: 06/14/20 06/15/20 06/16/20 06:59 06:59 06:59 Intake Total 1056.2 1750.9 2441.3 Output Total 1785 1420 1685 Balance -728.8 330.9 756.3 Result Diagrams: 06/16/20 03:50 06/16/20 03:50 Phys Exam - Physical Examination Constitutional: NAD HEENT: moist MMs Neck: supple Respiratory: clear to auscultation bilateral in supine position currently Cardiovascular: RRR Gastrointestinal: soft, no distention, positive bowel sounds mild nonpitting edema on vent, sedated, paralyzed Skin: no rash, normal turgor, cap refill <2 seconds Dx/Plan - Plan Plan: Patient is a 45M with no PMHx admitted for: #Acute hypoxic respiratory failure 2/2 COVID PNA Currently intubated and sedated. s/p remdesivir. - Continue ceftriaxone x 7 days (set to end on 06/18), steroids; Procal 1.11 -> 0.21. - Ddimer elevated from 1 to 6.16. On th lovenox. Will trend q 2days. - Continue Vit D, Vit C, zinc - Pulm consulted, appreciate recs. Will ween as tolerated. Continue proning. - On tube feeds - Currently making good urine output, will continue to monitor. #Transaminitis - improving Uncertain etiology, likely 2/2 COVID. Denies alcohol use - Hep panel neg, GGT elevated #Hyponatremia - resolved likely 2/2 SIADH related to illness - will continue to monitor #Normocytic Anemia H/H 13.6/39.4 > 11.7 -Assess in oupt setting when pt is not critically ill #Demand Ischemia - indeterminate trop Diet: Tube feeds, collection clerk consulted Fluids: KVO DVT ppx: lovenox Code: Full PCP: [facility] Dispo: ongoing CCU care, on ventilator -sedated, paralyzed. Prognosis guarded. Palliative care consulted. Case discussed with Dr. Ramachandran Addendum - Attending - Attending Attestation Date/Time: 06/16/20 1050 I personally evaluated the patient and discussed the management with Dr. Neumann I agree with the History, Examination, Assessment and Plan documented above with any addition or exceptions noted below. Prognosis remains poor and guarded. However, able to decrease FiO2 from 80 to 60%. Still with high PEEP of 28:12. No longer prone. Nadeem to stop Rocephin after 7 days. Pulm following. Decrease frequency of blood draws on stable labs. Demetris
[2020-06-16] MEDS: Vecuronium 10 MG VIAL IVP PRN ×4 (08:03→17:35)
[2020-06-16] MEDS: Mometasone 200 MCG/Formoterol 5 MCG 120 PUFF INHALER INH SCH ×2 (08:35→19:07)
[2020-06-16] MEDS: Pantoprazole 40 MG VIAL IVP SCH (08:59)
[2020-06-16] MEDS: Ascorbic Acid 500 mg Chewable Tablet PO SCH (08:59)
[2020-06-16] MEDS: Zinc Sulfate 220 MG CAP PO SCH (08:59)
[2020-06-16] MEDS: Dexamethasone 4 mg/ml Vial SLOW IVP SCH ×2 (08:59→21:44)
[2020-06-16] MEDS: Enoxaparin Sodium 80 MG/0.8 ML SYRINGE SC SCH ×2 (08:59→21:44)
--- NOTE | 2020-06-16 10:22 | RAD ---
AP CHEST: Date: 06/16/2020 HISTORY: Pneumonia. CCU follow-up. On ventilator. COMPARISON: 06/15/2020. FINDINGS: ET tube and NG tube again noted. Bilateral infiltrates are again noted with interstitial and hazy amara und-glass type infiltrates throughout both lungs. Lungs appear slightly better aerated today, althoug h some of this is due to differences in exposure. There is evidence of small effusions. IMPRESSION: Bilateral diffuse infiltrates again noted. POS: [facility]
[2020-06-16] MEDS ORDERED: Furosemide 40 MG/4 ML VIAL IVP ONE (10:35)
[2020-06-16] MEDS ORDERED: Furosemide 100 MG/10 ML VIAL SLOW IVP SCH (10:45)
[2020-06-16] MEDS: cefTRIAXone\\ROCEPHIN 1 GM in Sodium Chloride 0.9% 100 ML IVPB SCH (14:14)
--- NOTE | 2020-06-16 17:03 | PRG ---
DATE OF SERVICE: 06/16/2020 OBJECTIVE: Heart rate is in the 60, blood pressure 107/62, and FiO2 is at 55%. He is given Lasix 60 mg today. OBJECTIVE: LUNGS: Remarkable for coarse equal breath sounds. HEART: Regular rhythm. ABDOMEN: Soft. EXTREMITIES: Without edema. LABORATORY DATA: White count 10.0, hemoglobin 11.7, and platelets 279. Electrolytes are normal, creatinine 0.61. Liver enzymes were mildly elevated. Chest x-ray is unchanged. Intake and output, positive 756. IMPRESSION: Respiratory failure secondary to COVID-19. PLAN: Continue current support. Critical care time 30 min. Job ID: [id number] MTDD
[2020-06-16] MEDS: fentaNYL Citrate/PF 2,000 MCG in Sodium Chloride 0.9% 60 ML IV SCH (17:32)
[2020-06-16] MEDS: Cholecalciferol 1,000 UNITS (25 MCG) TAB PO SCH (21:44)
[2020-06-17] MEDS ORDERED: Sterile Water 10 ML ONE (03:35)
[2020-06-17] MEDS: Vecuronium 10 MG VIAL IVP PRN (03:43)
[2020-06-17] MEDS: Albuterol 200 PUFF (6.7GM INHALER) INH SCH ×6 (03:43→22:13)
[2020-06-17] MEDS: Propofol 1,000 MG/100 ML VIAL IV PRN ×5 (04:00→23:14)
[2020-06-17] MEDS: Lorazepam 2 MG/ML VIAL SLOW IVP SCH ×4 (05:45→23:14)
[2020-06-17] MEDS: Mometasone 200 MCG/Formoterol 5 MCG 120 PUFF INHALER INH SCH ×2 (06:59→18:50)
--- NOTE | 2020-06-17 07:00 | PDOC.FM ---
- Subjective Subjective: Patient was intubated and sedated at the time of evaluation. - Objective Vital Signs & Weight: Vital Signs (12 hours) Pulse Resp BP Pulse Ox 06/17/20 06:00 26 H 06/17/20 04:00 26 H 06/17/20 03:43 64 108/65 06/17/20 02:00 26 H 06/17/20 00:00 26 H 06/16/20 22:00 26 H 06/16/20 20:00 63 26 H 98 06/16/20 19:08 65 Weight Admit Weight 94.347 kg Weight 87.9 kg Most Recent Monitor Data Heart Rate from ECG 52 NIBP 103/61 NIBP BP-Mean 75 Respiration from ECG 26 SpO2 99 I&O: 06/15/20 06/16/20 06/17/20 06:59 06:59 06:59 Intake Total 1750.9 2441.3 2017.4 Output Total 1420 1685 4575 Balance 330.9 756.3 -2557.6 Result Diagrams: 06/16/20 03:50 06/16/20 03:50 Phys Exam - Physical Examination Constitutional: NAD Respiratory: no wheezing, no rales, no rhonchi, clear to auscultation bilateral Cardiovascular: RRR, no significant murmur, no rub Gastrointestinal: soft, non-tender, no distention, positive bowel sounds Musculoskeletal: no edema, pulses present Deviation from normal: Intubated and sedated Dx/Plan (1) COVID-19 Code(s): U07.1 - COVID-19 Status: Acute (2) Acute respiratory failure with hypoxia Code(s): J96.01 - ACUTE RESPIRATORY FAILURE WITH HYPOXIA Status: Acute (3) Normocytic anemia Code(s): D64.9 - ANEMIA, UNSPECIFIED Status: Acute (4) Hyponatremia Code(s): E87.1 - HYPO-OSMOLALITY AND HYPONATREMIA Status: Acute - Plan Plan: Patient is a 45 y/o male with an unremarkable PMH who presented to the ER for evaluation of SOB. #Acute hypoxic respiratory failure 2/2 COVID PNA -Symptoms reportedly began on 06/07 -CXR: Suspicion for multi-lobar pneumonia -CTA: No evidence of PE, concern for COVID-19 pneumonia -Patient is currently intubated and sedated, s/p Remdesivir -Procal: 1.11 > 0.21 -Will continue Ceftriaxone x 7 days (set to end on 06/18), steroids -D-Dimer: 1 > 6.16 - currently on with planned repeat check Q2D -Vit C, Vit D, Zinc -Pulm: Consulted, recs appreciated - will ween as tolerated with continued proning #Transaminitis -Uncertain etiology - likely 2/2 COVID -Hepatitis Panel: Negative -Denied EtOH Abuse, but GGT elevated -Will continue to monitor #Hyponatremia - resolved -Likely 2/2 SIADH related to illness -Will continue to monitor #Normocytic Anemia -Hgb : 13.6 > 11.7 -Patient appears hemodynamically stable w/o evidence of acute bleed -Will require outpatient follow-up s/p current illness #Elevated Troponin -Trop: 0.06 > 0.1 > 0.06 -Likely due to demand ischemia PCP: [facility] Code: Full Diet: Tube Feeds, Molecular Geneticist consulted Activity: Bed Rest VTE PPx: Dispo: Patient is currently in critical condition and admitted to the CCU for ongoing management of AHRF 2/2 COVID-19 Pneumonia. Will continue steroids, ABx and vitamin supplementation as per above. Expected LOS > 48H. Addendum - Attending - Attending Attestation Date/Time: 06/17/20 8309 I personally evaluated the patient and discussed the management with Dr. Ramos. I agree with the History, Examination, Assessment and Plan documented above with any addition or exceptions noted below.
[2020-06-17] MEDS: Dexamethasone 4 mg/ml Vial SLOW IVP SCH ×2 (07:56→21:20)
[2020-06-17] MEDS: Pantoprazole 40 MG VIAL IVP SCH (07:56)
[2020-06-17] MEDS: Zinc Sulfate 220 MG CAP PO SCH (07:56)
[2020-06-17] MEDS: Ascorbic Acid 500 mg Chewable Tablet PO SCH (07:56)
[2020-06-17] MEDS: Enoxaparin Sodium 80 MG/0.8 ML SYRINGE SC SCH ×2 (07:57→21:20)
--- NOTE | 2020-06-17 08:12 | PRG ---
DATE OF SERVICE: 06/17/2020 Forty five minutes of critical care time. SUBJECTIVE: The patient remains intubated on mechanical ventilation for lowry virus. OBJECTIVE: VITAL SIGNS: On exam, temperature 98.6, pulse 52, blood pressure 103/61, O2 saturation 99%. A 24-hour intake 2016, output 4575. HEENT: Unremarkable. NECK: No adenopathy or JVD. LUNGS: Fairly clear anteriorly. CARDIOVASCULAR: S1, S2. Slightly bradycardic. ABDOMEN: Soft and nontender. EXTREMITIES: No edema. LABS: No labs were done today that I can see. Chest x-ray continued to show bilateral infiltrates, right greater than left. ASSESSMENT: 1. COVID-19 pneumonia. 2. Acute hypoxic respiratory failure, requiring mechanical ventilation. PLAN: I have decreased his FiO2 and decreased his respiratory rate on the vent. He will stop the antibiotics after tomorrow. I think we can back down on his paralytics. He continues anticoagulation. Continue enteral tube feeds. Labs are due again tomorrow. Job ID: [id number]
--- NOTE | 2020-06-17 09:41 | RAD ---
CHEST 1 VIEW: HISTORY: Pneumonia. COMPARISON: Radiograph prior day. FINDINGS: The patient is intubated with endotracheal tube tip above the eliud 5.1 cm. Enteric tube tip is sim ilar. No pneumothorax or pneumomediastinum. Extensive airspace opacities are similar. Enteric tube tip below the diaphragm out of the field of view. IMPRESSION: Similar examination of the chest. POS: HOME
[2020-06-17] MEDS: fentaNYL Citrate/PF 2,000 MCG in Sodium Chloride 0.9% 60 ML IV SCH (12:27)
[2020-06-17] MEDS: cefTRIAXone\\ROCEPHIN 1 GM in Sodium Chloride 0.9% 100 ML IVPB SCH (12:28)
[2020-06-17] MEDS: Cholecalciferol 1,000 UNITS (25 MCG) TAB PO SCH (21:20)
[2020-06-17] MEDS: Acetaminophen 500 MG TAB PO PRN (23:14)
[2020-06-18] MEDS: Albuterol 200 PUFF (6.7GM INHALER) INH SCH ×6 (02:27→22:08)
[2020-06-18 05:12] LABS: ALT (SGPT) 71 U/L (8-55); AST (SGOT) 44 U/L (5-34); Albumin 2.5 g/dL (3.5-5.0); Alkaline Phosphatase 106 U/L (40-110); Anion Gap 12 mmol/L (10-20); BUN (Urea Nitrogen) 19 mg/dL (8.9-20.6); Bilirubin, Total 0.6 mg/dL (0.2-1.2); Calc. Creatinine Clearance 195 mL/min (70-130); Calcium 7.8 mg/dL (7.8-10.44); Carbon Dioxide 27 mmol/L (22-29); Chloride 102 mmol/L (98-107); Globulin 3.3 g/dL (2.4-3.5); Glucose 169 mg/dL (70-105); Potassium 4.2 mmol/L (3.5-5.1); Protein, Total 5.8 g/dL (6.0-8.3); Sodium 137 mmol/L (136-145)
[2020-06-18] MEDS: Lorazepam 2 MG/ML VIAL SLOW IVP SCH ×3 (05:56→17:37)
[2020-06-18] MEDS: Propofol 1,000 MG/100 ML VIAL IV PRN ×3 (05:57→22:30)
[2020-06-18] MEDS: Mometasone 200 MCG/Formoterol 5 MCG 120 PUFF INHALER INH SCH ×2 (06:49→18:42)
[2020-06-18] MEDS ORDERED: Fentanyl CADD 100 ML ONE ×2 (07:18→22:47)
--- NOTE | 2020-06-18 07:57 | RAD ---
XR Chest 1 View Portable History: Pneumonia Comparison: Radiograph prior day Findings: Endotracheal tube tip at the clavicular level. Enteric tube tip below diaphragm although ou t of field of view. Perihilar and peripheral opacities are similar. No pneumothorax. No pneumomediastinum. Impression: Similar examination of the chest without improved lung aeration.
--- NOTE | 2020-06-18 09:10 | PRG ---
DATE OF SERVICE: 06/18/2020 A 35 minutes of critical care time. SUBJECTIVE: Mr. Vincent remains intubated on mechanical ventilation. He is sedated on propofol and fentanyl. OBJECTIVE: VITAL SIGNS: Temperature is 99, pulse 53, blood pressure 104/63, and O2 saturation generally in the mid 90s. A 24-hour intake 1734, output 2725. HEENT: Unremarkable. NECK: No JVD. LUNGS: Clear anteriorly. CARDIOVASCULAR: S1 and S2. Slightly bradycardic. ABDOMEN: Soft and nontender. EXTREMITIES: No clubbing, cyanosis, or edema. LABORATORY DATA: Sodium 137, potassium 4.2, chloride 102, CO2 of 27, BUN 19, creatinine 0.6, and glucose 169. Chest x-ray shows continued bilateral infiltrates. ASSESSMENT: 1. COVID-19 pneumonia. 2. Acute hypoxic respiratory failure requiring mechanical ventilation. PLAN: We will try to back down sedation some. I have decreased respiratory rate on his ventilator in order for him to start taking spontaneous breaths. His antibiotics will stop after today. I am going to wean him down to once daily dose of the dexamethasone. Job ID: [id number]
[2020-06-18] MEDS: Dexamethasone 4 mg/ml Vial SLOW IVP SCH (09:19)
[2020-06-18] MEDS: Ascorbic Acid 500 mg Chewable Tablet PO SCH (09:20)
[2020-06-18] MEDS: Enoxaparin Sodium 80 MG/0.8 ML SYRINGE SC SCH ×2 (09:20→20:24)
[2020-06-18] MEDS: Pantoprazole 40 MG GRANULES PACKET PER TUBE SCH (09:20)
[2020-06-18] MEDS: Zinc Sulfate 220 MG CAP PO SCH (09:20)
--- NOTE | 2020-06-18 12:19 | PDOC.FM ---
- Subjective Subjective: Patient was intubated and sedated at the time of evaluation. No acute overnight events were reported by the Resident Night Team or Nursing Staff. - Objective Vital Signs & Weight: Vital Signs (12 hours) Pulse Resp BP Pulse Ox 06/18/20 10:51 56 L 128/79 06/18/20 10:00 16 06/18/20 07:10 16 96 06/18/20 06:49 50 L 20 106/64 94 L 06/18/20 06:00 22 H 06/18/20 04:00 22 H 06/18/20 02:27 63 108/65 06/18/20 02:00 22 H Weight Admit Weight 94.347 kg Weight 87.1 kg Most Recent Monitor Data Heart Rate from ECG 59 NIBP 114/74 NIBP BP-Mean 87 Respiration from ECG 16 SpO2 96 I&O: 06/17/20 06/18/20 06/19/20 06:59 06:59 06:59 Intake Total 2017.4 1734 100 Output Total 4575 2725 525 Balance -2557.6 -991 -425 Result Diagrams: 06/19/20 03:30 06/19/20 03:30 Phys Exam - Physical Examination Constitutional: NAD HEENT: moist MMs Neck: no nodes, supple Course breath sounds Cardiovascular: RRR, no significant murmur, no rub Gastrointestinal: soft, non-tender, no distention, positive bowel sounds Musculoskeletal: no edema, pulses present Neurological: non-focal Lymphatic: no nodes Deviation from normal: Intubated and sedated Dx/Plan (1) COVID-19 Code(s): U07.1 - COVID-19 Status: Acute (2) Acute respiratory failure with hypoxia Code(s): J96.01 - ACUTE RESPIRATORY FAILURE WITH HYPOXIA Status: Acute (3) Normocytic anemia Code(s): D64.9 - ANEMIA, UNSPECIFIED Status: Acute (4) Hyponatremia Code(s): E87.1 - HYPO-OSMOLALITY AND HYPONATREMIA Status: Acute (5) Transaminitis Code(s): R74.01 - ELEVATION OF LEVELS OF LIVER TRANSAMINASE LEVELS Status: Acute (6) Elevated troponin Code(s): R77.8 - OTHER SPECIFIED ABNORMALITIES OF PLASMA PROTEINS Status: Acute - Plan Plan: Patient is a 45 y/o male with an unremarkable PMH who presented to the ER for evaluation of SOB. #Acute hypoxic respiratory failure 2/2 COVID PNA -Symptoms reportedly began on 06/07 -CXR: Suspicion for multi-lobar pneumonia -CTA: No evidence of PE, concern for COVID-19 pneumonia -Patient is currently intubated and sedated, s/p Remdesivir -Procal: 1.11 > 0.21 -Will continue Ceftriaxone x 7 days (set to end on 06/18), steroids -D-Dimer: 1 > 6.16 - currently on with planned repeat check Q2D -Vit C, Vit D, Zinc -Pulm: Consulted, recs appreciated - will ween as tolerated with continued proning #Transaminitis -Uncertain etiology - likely 2/2 COVID -Hepatitis Panel: Negative -Denied EtOH Abuse, but GGT elevated -Will continue to monitor #Hyponatremia - resolved -Likely 2/2 SIADH related to illness -Will continue to monitor #Normocytic Anemia -Hgb : 13.6 > 11.7 -Patient appears hemodynamically stable w/o evidence of acute bleed -Will require outpatient follow-up s/p current illness #Elevated Troponin -Trop: 0.06 > 0.1 > 0.06 -Likely due to demand ischemia PCP: [facility] Code: Full Diet: Tube Feeds, Data Developer consulted Activity: Bed Rest VTE PPx: Dispo: Patient is currently in critical condition and admitted to the CCU for ongoing management of AHRF 2/2 COVID-19 Pneumonia. Will continue steroids, ABx and vitamin supplementation as per above. Pulmonology consulted, recs appreciated. Expected LOS > 48H. Addendum - Attending - Attending Attestation Date/Time: 06/19/20 2478 I personally evaluated the patient and discussed the management with Dr. Ramos yesterday. I agree with the History, Examination, Assessment and Plan documented above with any addition or exceptions noted below.
[2020-06-18] MEDS: cefTRIAXone\\ROCEPHIN 1 GM in Sodium Chloride 0.9% 100 ML IVPB SCH (13:59)
[2020-06-18] MEDS: Cholecalciferol 1,000 UNITS (25 MCG) TAB PO SCH (20:24)
[2020-06-19] MEDS: Lorazepam 2 MG/ML VIAL SLOW IVP SCH ×4 (00:15→17:42)
[2020-06-19] MEDS: Albuterol 200 PUFF (6.7GM INHALER) INH SCH ×6 (04:55→21:57)
[2020-06-19] MEDS: Acetaminophen 500 MG TAB PO PRN ×2 (05:20→10:34)
[2020-06-19] MEDS: Propofol 1,000 MG/100 ML VIAL IV PRN ×3 (05:20→17:43)
[2020-06-19 05:44] LABS: ALT (SGPT) 73 U/L (8-55); AST (SGOT) 55 U/L (5-34); Albumin 2.6 g/dL (3.5-5.0); Alkaline Phosphatase 113 U/L (40-110); Anion Gap 12 mmol/L (10-20); BUN (Urea Nitrogen) 17 mg/dL (8.9-20.6); Bilirubin, Total 0.8 mg/dL (0.2-1.2); Calc. Creatinine Clearance 185 mL/min (70-130); Calcium 8.3 mg/dL (7.8-10.44); Carbon Dioxide 28 mmol/L (22-29); Chloride 100 mmol/L (98-107); Globulin 3.7 g/dL (2.4-3.5); Glucose 113 mg/dL (70-105); Potassium 3.6 mmol/L (3.5-5.1); Protein, Total 6.3 g/dL (6.0-8.3); Sodium 136 mmol/L (136-145)
[2020-06-19 06:15] LABS: Hypochromia SLIGHT = 6-15 cells (100X) (0-5/hpf); Lymphocytes 17 % (21-51); MDiff Complete? YES; Monocytes 6 % (0-10); Neutrophil 75 % (42-75); Platelet Morphology Comment Appears Adequate; Reactive Lymphocytes 2 % (0-10)
[2020-06-19 06:44] LABS: Hemoglobin 12.9 g/dL (14.0-18.0); Mean Corpuscular HGB CONC 33.4 g/dL (32.0-36.0); Mean Corpuscular Hemoglobin 29.7 pg (27.0-31.0); Mean Corpuscular Volume 89.1 fL (78.0-98.0); Platelet Count 332 thou/uL (130-400); RBC Distribution Width 12.1 % (11.5-14.5); Red Blood Cell (RBC) Count 4.32 mill/uL (4.70-6.10); White Blood Cell (WBC) Count 12.4 thou/uL (4.8-10.8)
[2020-06-19] MEDS: Mometasone 200 MCG/Formoterol 5 MCG 120 PUFF INHALER INH SCH ×2 (06:56→18:59)
[2020-06-19] MEDS: Enoxaparin Sodium 80 MG/0.8 ML SYRINGE SC SCH ×2 (07:40→20:12)
[2020-06-19] MEDS: Ascorbic Acid 500 mg Chewable Tablet PO SCH (07:41)
[2020-06-19] MEDS: Zinc Sulfate 220 MG CAP PO SCH (07:41)
[2020-06-19] MEDS: Pantoprazole 40 MG GRANULES PACKET PER TUBE SCH (07:41)
[2020-06-19] MEDS: Dexamethasone 4 mg/ml Vial SLOW IVP SCH (07:41)
--- NOTE | 2020-06-19 08:06 | RAD ---
XR Chest 1 View Portable History: Pneumonia Comparison: Radiograph prior day Findings: Endotracheal tube tip at the clavicular level. Enteric tube tip below diaphragm although ou t of field of view. Patchy airspace opacities are similar. No pneumothorax or effusion. Impression: Similar examination of the chest without improved lung aeration. No pneumothorax or pneum omediastinum.
--- NOTE | 2020-06-19 08:15 | PRG ---
DATE OF SERVICE: 06/19/2020 This is 35 minutes of critical care time. SUBJECTIVE: The patient remains intubated on mechanical ventilation. He will wake up and follow some commands. OBJECTIVE: VITAL SIGNS: His temperature is 100.8, pulse 84, blood pressure 89/48, 24-hour intake 1676, output 2290, weight 191 pounds. HEENT: Unremarkable. NECK: No adenopathy or JVD. LUNGS: With crackles. CARDIAC: S1 and S2. Regular. ABDOMEN: Soft. EXTREMITIES: No edema. LABORATORY DATA: Sodium 136, potassium 3.6, chloride 100, CO2 of 28, BUN 17, creatinine 0.6, and glucose 113. White blood cell count 12.4, hematocrit 38.5, and platelet count 332. IMAGING STUDIES: His x-ray is stable. ASSESSMENT: 1. COVID-19 pneumonia. 2. Acute hypoxic respiratory failure requiring mechanical ventilation. 3. Obesity. PLAN: His gas exchange is improved to the point where I want to switch him over to SIMV mode with a lower tidal volume. We are trying to avoid barotrauma and volume trauma on the patient. His steroid dose has recently been reduced. I think in the next 2 to 3 days we will be able to wean him much more aggressively. We will continue enteral tube feeds. He is auto-diuresing nicely. Job ID: [id number]
--- NOTE | 2020-06-19 10:30 | PDOC.FM ---
- Subjective Subjective: Patient was sedated and intubated at the time of evaluation. No acute overnight events were reported by the Resident Medicine Team or Nursing Staff. - Objective Vital Signs & Weight: Vital Signs (12 hours) Pulse Resp BP Pulse Ox 06/19/20 10:19 75 106/57 L 06/19/20 08:00 22 H 91 L 06/19/20 06:57 86 104/56 L 06/19/20 06:56 85 20 90 L 06/19/20 06:00 19 06/19/20 04:00 24 H 06/19/20 02:00 16 06/19/20 00:15 76 119/70 06/19/20 00:00 22 H Weight Admit Weight 94.347 kg Weight 87 kg Most Recent Monitor Data Heart Rate from ECG 82 NIBP 98/58 NIBP BP-Mean 71 Respiration from ECG 24 SpO2 88 I&O: 06/18/20 06/19/20 06/20/20 06:59 06:59 06:59 Intake Total 1734 1676.1 100 Output Total 2725 2290 125 Balance -991 -613.9 -25 Result Diagrams: 06/19/20 03:30 06/19/20 03:30 Phys Exam - Physical Examination Constitutional: NAD HEENT: moist MMs Neck: supple Course breath sounds Cardiovascular: RRR, no significant murmur, no rub Gastrointestinal: soft, non-tender, no distention Musculoskeletal: no edema, pulses present Deviation from normal: Sedated and intubated Dx/Plan (1) COVID-19 Code(s): U07.1 - COVID-19 Status: Acute (2) Acute respiratory failure with hypoxia Code(s): J96.01 - ACUTE RESPIRATORY FAILURE WITH HYPOXIA Status: Acute (3) Normocytic anemia Code(s): D64.9 - ANEMIA, UNSPECIFIED Status: Acute (4) Hyponatremia Code(s): E87.1 - HYPO-OSMOLALITY AND HYPONATREMIA Status: Acute (5) Transaminitis Code(s): R74.01 - ELEVATION OF LEVELS OF LIVER TRANSAMINASE LEVELS Status: Acute (6) Elevated troponin Code(s): R77.8 - OTHER SPECIFIED ABNORMALITIES OF PLASMA PROTEINS Status: Acute - Plan Plan: Patient is a 45 y/o male with an unremarkable PMH who presented to the ER for evaluation of SOB. #AHRF 2/2 COVID PNA -Symptoms reportedly began on 06/07 -CXR: Suspicion for multi-lobar pneumonia -CTA: No evidence of PE, concern for COVID-19 pneumonia -Patient is currently intubated and sedated, s/p Remdesivir -Procal: 1.11 > 0.21 -s/p Ceftriaxone for 7D (Completed on 06/18) -Dexamethasone 6 mg IV daily -D-Dimer: 1 > 6.16 - currently on . Lovenox -Vit C, Vit D, Zinc -Pulm: Consulted, recs appreciated - transitioned to SIMV and will wean as tolerated #Transaminitis, improving -Uncertain etiology - likely 2/2 COVID -Hepatitis Panel: Negative -Denied EtOH Abuse, but GGT elevated -Will continue to monitor #Hyponatremia - resolved -Likely 2/2 SIADH related to illness -Will continue to monitor #Normocytic Anemia -Hgb : 13.6 > 12.9 - stable -Patient appears hemodynamically stable w/o evidence of acute bleed -Will require outpatient follow-up s/p current illness #Elevated Troponin -Trop: 0.06 > 0.1 > 0.06 -Likely due to demand ischemia PCP: CC Code: Full Diet: Tube Feeds, Administrative Secretary consulted Activity: Bed Rest VTE PPx: . Lovenox Dispo: Patient is currently in critical condition and admitted to the CCU for ongoing management of AHRF 2/2 COVID-19 Pneumonia. Will continue steroids and vitamin supplementation as per above. Pulmonology consulted, recs appreciated. Expected LOS > 48H. Addendum - Attending - Attending Attestation Date/Time: 06/19/20 4802 I personally evaluated the patient and discussed the management with Dr. Ramos. I agree with the History, Examination, Assessment and Plan documented above with any addition or exceptions noted below.
[2020-06-19] MEDS ORDERED: Polyethylene Glycol 3350 17 GM Packet PER TUBE SCH (11:00)
--- NOTE | 2020-06-19 13:01 | PDOC.PALCO ---
Palliative Care Consult - Allergies Allergies/Adverse Reactions: Allergies Allergy/AdvReac Type Severity Reaction Status Date / Time No Known Allergies Allergy Verified 06/11/20 21:18 - Objective Vital Signs: Vital Signs - Most Recent Temp Pulse Resp BP Pulse Ox 100.9 F H 94 22 H 106/57 L 91 L 06/19/20 10:34 06/19/20 10:34 06/19/20 12:00 06/19/20 10:34 06/19/20 08:00 - Plan/Recommendations Plan: [] minutes spent on this encounter with >50% of the time in counseling and coordination of care. Thank you for this very appropriate consult.
[2020-06-19] MEDS ORDERED: Fentanyl CADD 100 ML ONE (14:54)
[2020-06-19] MEDS: Lorazepam 2 MG/ML VIAL SLOW IVP PRN (20:12)
[2020-06-19] MEDS: Cholecalciferol 1,000 UNITS (25 MCG) TAB PO SCH (20:13)
[2020-06-20] MEDS: Propofol 1,000 MG/100 ML VIAL IV PRN ×5 (01:15→23:39)
[2020-06-20] MEDS: Lorazepam 2 MG/ML VIAL SLOW IVP SCH ×5 (01:16→23:38)
[2020-06-20] MEDS: Acetaminophen 500 MG TAB PO PRN ×2 (01:20→07:28)
[2020-06-20] MEDS: Albuterol 200 PUFF (6.7GM INHALER) INH SCH ×6 (02:25→22:15)
[2020-06-20 05:05] LABS: ALT (SGPT) 88 U/L (8-55); AST (SGOT) 48 U/L (5-34); Albumin 2.6 g/dL (3.5-5.0); Alkaline Phosphatase 113 U/L (40-110); Anion Gap 14 mmol/L (10-20); BUN (Urea Nitrogen) 16 mg/dL (8.9-20.6); Bilirubin, Total 1.1 mg/dL (0.2-1.2); Calc. Creatinine Clearance 179 mL/min (70-130); Calcium 8.2 mg/dL (7.8-10.44); Carbon Dioxide 28 mmol/L (22-29); Chloride 99 mmol/L (98-107); Globulin 3.8 g/dL (2.4-3.5); Glucose 106 mg/dL (70-105); Potassium 3.9 mmol/L (3.5-5.1); Protein, Total 6.4 g/dL (6.0-8.3); Sodium 137 mmol/L (136-145)
[2020-06-20 05:25] LABS: Band 1 % (5-11); Hemoglobin 12.3 g/dL (14.0-18.0); Hypochromia SLIGHT = 6-15 cells (100X) (0-5/hpf); Lymphocytes 1 % (21-51); MDiff Complete? YES; Mean Corpuscular HGB CONC 33.5 g/dL (32.0-36.0); Mean Corpuscular Hemoglobin 30.2 pg (27.0-31.0); Mean Corpuscular Volume 89.9 fL (78.0-98.0); Mean Platelet Volume 8.9 fL (7.4-10.4); Monocytes 15 % (0-10); Neutrophil 83 % (42-75); Nucleated RBC 1 % (0); Platelet Count 335 thou/uL (130-400); Platelet Morphology Comment Appears Adequate; RBC Distribution Width 12.1 % (11.5-14.5); Red Blood Cell (RBC) Count 4.08 mill/uL (4.70-6.10); White Blood Cell (WBC) Count 15.8 thou/uL (4.8-10.8)
[2020-06-20] MEDS ORDERED: Fentanyl CADD 100 ML ONE (05:38)
[2020-06-20] MEDS: Mometasone 200 MCG/Formoterol 5 MCG 120 PUFF INHALER INH SCH ×2 (06:22→19:25)
[2020-06-20] MEDS ORDERED: VANCOMYCIN IVPB PRN (08:03)
[2020-06-20] MEDS ORDERED: Ibuprofen 600 MG TAB PER TUBE PRN (08:04)
--- NOTE | 2020-06-20 09:04 | PRG ---
DATE OF SERVICE: 06/20/2020 TIME SPENT: 35 minutes of critical care time. SUBJECTIVE: The patient is currently intubated on mechanical ventilation. He did not do well off bilevel yesterday. OBJECTIVE: VITAL SIGNS: He has had progressive fevers-right now about 102.8. His pulse is running 90, blood pressure 103/59. HEENT: Unremarkable. NECK: No JVD. LUNGS: Inspiratory crackles bilaterally. CARDIAC: S1, S2. Regular. ABDOMEN: Soft. EXTREMITIES: No edema. LABORATORY DATA: White blood cell count 15.8, hematocrit 36.7, and platelet count 335. Sodium 137, potassium 3.9, chloride 99, CO2 of 28, BUN 16, creatinine 0.6, glucose 106, AST 48, and ALT 88. IMAGING DATA: X-ray shows diffuse bilateral infiltrates, which is worse. ASSESSMENT: 1. COVID-19 pneumonia. 2. Acute hypoxic respiratory failure requiring mechanical ventilation. 3. Increased fever trend. PLAN: It could be that he has a secondary infection given the fact that he is on steroids and is having breakthrough fevers. I will go ahead and re-culture him and start him on broad-spectrum IV antibiotics. If he does not defervesce, then he will probably need to be placed in a prone position to help improve his O2 sats. Job ID: [id number]
--- NOTE | 2020-06-20 09:30 | RAD ---
PORTABLE CHEST: HISTORY: Followup pneumonia. FINDINGS: Endotracheal and NG tubes are in satisfactory position. Extensive bilateral lung infiltrates are sta ble. IMPRESSION: Stable exam. POS: [facility]
--- NOTE | 2020-06-20 09:34 | PDOC.BPN ---
- Brief Progress Note Encounter Date: 06/14/20 Encounter Time: 18:00 Pt is a 45 yo gentleman without significant PMH, although he did follow with a primary provider, who presented to the emergency department for acute hypoxic respiratory failure secondary to COVID. Pt's symptoms started on 06/07/20 after a positive exposure in May. He was started on high flow oxygen in the emergency department. Due to an elevated procalcitonin we started the patient on ceftriaxone although superimposed bacterial infection has proven to be low. His oxygen saturations remained in the low 90's but with any movement he would desaturate to the mid 80's. Pt was started on dexamethasone, remdesivir. On 06/13 a code green was initiated due to hypoxia. His ABG revealed a pO2 in the 30's. He was transitioned to bipap but did not tolerate due to anxiousness. Subsequently, pt was intubated on 06/13/[address] Sommer. He remained anxious on sedation requiring intermittent paralytics. He was transitioned to proning to help with alveoli recruitment. We continued this same care on 06/14. His was updated daily. She is a school vocational educator from [place] who was visiting for the holidays. He also has 2 children. Kemal Haddad, DO 06/14/20
[2020-06-20] MEDS: Vancomycin HCl 1.25 GM in Sodium Chloride 0.9% 250 ML 250 ML IVPB SCH ×2 (09:49→18:52)
[2020-06-20] MEDS: Enoxaparin Sodium 80 MG/0.8 ML SYRINGE SC SCH ×2 (09:50→21:59)
[2020-06-20] MEDS: Zinc Sulfate 220 MG CAP PO SCH (09:51)
[2020-06-20] MEDS: Pantoprazole 40 MG GRANULES PACKET PER TUBE SCH (09:51)
[2020-06-20] MEDS: Dexamethasone 4 mg/ml Vial SLOW IVP SCH (09:51)
[2020-06-20] MEDS: Ascorbic Acid 500 mg Chewable Tablet PO SCH (09:51)
[2020-06-20] MEDS: Polyethylene Glycol 3350 17 GM Packet PER TUBE SCH (09:52)
--- NOTE | 2020-06-20 10:25 | PDOC.FM ---
- Subjective Subjective: Patient was sedated and intubated at the time of evaluation. Per chart review, patient spiked a TMax of 102.4 F and required an increase in FiO2 requirement while on Bi-Level ventilation. - Objective Vital Signs & Weight: Vital Signs (12 hours) Temp Pulse Resp BP Pulse Ox 06/20/20 07:58 102.4 F H 89 24 H 98/52 L 06/20/20 06:22 99 20 103/59 L 90 L 06/20/20 05:59 27 H 06/20/20 04:00 27 H 06/20/20 02:00 24 H 06/20/20 01:04 94 125/78 06/20/20 00:00 26 H Weight Admit Weight 94.347 kg Weight 84.2 kg Most Recent Monitor Data Heart Rate from ECG 98 NIBP 99/52 NIBP BP-Mean 67 Respiration from ECG 31 SpO2 94 I&O: 06/19/20 06/20/20 06/21/20 06:59 06:59 06:59 Intake Total 1676.1 1553 60 Output Total 2290 1695 60 Balance -613.9 -142 0 Result Diagrams: 06/20/20 04:23 06/20/20 04:23 Phys Exam - Physical Examination Constitutional: NAD Sedated and intubated HEENT: moist MMs Neck: supple Respiratory: no wheezing, no rales, no rhonchi, clear to auscultation bilateral Cardiovascular: RRR, no significant murmur, no rub Gastrointestinal: soft, non-tender, no distention, positive bowel sounds Musculoskeletal: no edema, pulses present Neurological: non-focal Skin: no rash Dx/Plan (1) COVID-19 Code(s): U07.1 - COVID-19 Status: Acute (2) Acute respiratory failure with hypoxia Code(s): J96.01 - ACUTE RESPIRATORY FAILURE WITH HYPOXIA Status: Acute (3) Normocytic anemia Code(s): D64.9 - ANEMIA, UNSPECIFIED Status: Acute (4) Hyponatremia Code(s): E87.1 - HYPO-OSMOLALITY AND HYPONATREMIA Status: Acute (5) Transaminitis Code(s): R74.01 - ELEVATION OF LEVELS OF LIVER TRANSAMINASE LEVELS Status: Acute (6) Elevated troponin Code(s): R77.8 - OTHER SPECIFIED ABNORMALITIES OF PLASMA PROTEINS Status: Acute - Plan Plan: Patient is a 45 y/o male with an unremarkable PMH who presented to the ER for evaluation of SOB. #AHRF 2/2 COVID PNA, possible Bacterial Co-Infection -Symptoms reportedly began on 06/07 -CXR: Suspicion for multi-lobar pneumonia -CTA: No evidence of PE, concern for COVID-19 pneumonia -Patient is currently intubated and sedated, s/p Remdesivir -Procal: 1.11 > 0.21 - will recheck and trend based on recent decline on 06/19 -s/p Ceftriaxone for 7D (Completed on 06/18) -Dexamethasone 6 mg IV daily -D-Dimer: 1 > 6.16 - currently on . Lovenox -Vit C, Vit D, Zinc -Patient developed fever and increase FiO2 requirement on Bi-Level ventilation on 06/19 -BCx: Pending -UCx: Pending -Repeat CXR: NAF -Pulm: Consulted, recs appreciated - currently receiving Vanc and Zosyn #Transaminitis, improving -Uncertain etiology - likely 2/2 COVID -Hepatitis Panel: Negative -Denied EtOH Abuse, but GGT elevated -Will continue to monitor #Hyponatremia -Likely 2/2 SIADH related to illness -Resolved #Normocytic Anemia -Hgb : 13.6 > 12.9 - stable -Patient appears hemodynamically stable w/o evidence of acute bleed -Will require outpatient follow-up s/p current illness #Elevated Troponin -Trop: 0.06 > 0.1 > 0.06 -Likely due to demand ischemia PCP: CC Code: Full Diet: Tube Feeds, Copyright Expert consulted Activity: Bed Rest VTE PPx: . Lovenox Dispo: Patient is currently in critical condition and admitted to the CCU for ongoing management of AHRF 2/2 COVID-19 Pneumonia. Will continue steroids and vitamin supplementation as per above, with multiple cultures pending based on recend downward trend in clinical status. Pulmonology consulted, recs appreciated. Patient's long-term prognosis appears poor at this time. Expected LOS > 48H. Addendum - Attending - Attending Attestation Date/Time: 06/20/20 2696 I personally evaluated the patient and discussed the management with Dr. Ramos. I agree with the History, Examination, Assessment and Plan documented above with any addition or exceptions noted below.
[2020-06-20] MEDS: Lactated Ringer's 1,000 ML IV SCH ×2 (11:42→23:38)
[2020-06-20] MEDS: Piperacillin/Tazobactam 3.375 GM in Sodium Chloride 0.9% 100 ML IVPB SCH ×3 (11:42→23:38)
[2020-06-20] MEDS: Acetaminophen 650 MG/20.3 ML UDCUP PO PRN (11:44)
[2020-06-20] MEDS: Cholecalciferol 1,000 UNITS (25 MCG) TAB PO SCH (21:59)
[2020-06-21] MEDS: Vancomycin HCl 1.25 GM in Sodium Chloride 0.9% 250 ML 250 ML IVPB SCH ×4 (01:55→21:51)
[2020-06-21] MEDS ORDERED: Fentanyl CADD 100 ML ONE ×2 (02:24→16:11)
[2020-06-21] MEDS: Fentanyl CADD 100 ML IV SCH (02:29)
[2020-06-21] MEDS: Albuterol 200 PUFF (6.7GM INHALER) INH SCH ×6 (03:02→22:27)
[2020-06-21 04:56] LABS: #Lymphocytes 0.4 thou/uL (1.20-3.40); #Monocytes 0.2 thou/uL (0.11-0.59); #Neutrophils 11.2 thou/uL (1.40-6.50); %Eosinophils 0.2 % (0.0-10.0); %Lymphocytes 3.5 % (21.0-51.0); %Monocytes 1.8 % (0.0-10.0); %Neutrophils 94.4 % (42.0-75.0); Hemoglobin 10.9 g/dL (14.0-18.0); Mean Corpuscular HGB CONC 31.6 g/dL (32.0-36.0); Mean Corpuscular Hemoglobin 28.6 pg (27.0-31.0); Mean Corpuscular Volume 90.8 fL (78.0-98.0); Mean Platelet Volume 8.9 fL (7.4-10.4); Platelet Count 304 thou/uL (130-400); RBC Distribution Width 12.2 % (11.5-14.5); Red Blood Cell (RBC) Count 3.82 mill/uL (4.70-6.10); White Blood Cell (WBC) Count 11.8 thou/uL (4.8-10.8)
[2020-06-21 05:03] LABS: ALT (SGPT) 67 U/L (8-55); AST (SGOT) 29 U/L (5-34); Albumin 2.3 g/dL (3.5-5.0); Alkaline Phosphatase 107 U/L (40-110); Anion Gap 13 mmol/L (10-20); BUN (Urea Nitrogen) 16 mg/dL (8.9-20.6); Bilirubin, Total 0.9 mg/dL (0.2-1.2); Calc. Creatinine Clearance 195 mL/min (70-130); Calcium 8.2 mg/dL (7.8-10.44); Carbon Dioxide 27 mmol/L (22-29); Chloride 104 mmol/L (98-107); Globulin 3.7 g/dL (2.4-3.5); Glucose 108 mg/dL (70-105); Potassium 3.9 mmol/L (3.5-5.1); Sodium 140 mmol/L (136-145)
[2020-06-21] MEDS: Lorazepam 2 MG/ML VIAL SLOW IVP SCH ×3 (05:10→19:16)
[2020-06-21] MEDS: Piperacillin/Tazobactam 3.375 GM in Sodium Chloride 0.9% 100 ML IVPB SCH ×3 (05:10→21:50)
[2020-06-21] MEDS: Acetaminophen 650 MG/20.3 ML UDCUP PO PRN (06:06)
[2020-06-21] MEDS: Mometasone 200 MCG/Formoterol 5 MCG 120 PUFF INHALER INH SCH ×2 (07:42→18:49)
--- NOTE | 2020-06-21 08:28 | PDOC.FM ---
- Subjective Subjective: Patient was intubated and sedated at the time of evaluation. No acute overnight events were reported by the Resident Night Team or Nursing Staff. - Objective Vital Signs & Weight: Vital Signs (12 hours) Pulse Resp 06/21/20 07:43 91 06/21/20 06:00 20 06/21/20 04:00 21 H 06/21/20 02:00 21 H 06/21/20 00:00 20 06/20/20 22:00 20 Weight Admit Weight 94.347 kg Weight 85.3 kg Most Recent Monitor Data Heart Rate from ECG 86 NIBP 101/57 NIBP BP-Mean 71 Respiration from ECG 21 SpO2 90 I&O: 06/20/20 06/21/20 06/22/20 06:59 06:59 06:59 Intake Total 1553 4305 Output Total 1695 2750 80 Balance -142 1555 -80 Result Diagrams: 06/22/20 04:11 06/22/20 04:11 Phys Exam - Physical Examination Constitutional: NAD HEENT: moist MMs Neck: supple Course breath sounds, bilaterally Cardiovascular: no significant murmur, no rub Mild tachycardia Gastrointestinal: soft, non-tender, no distention, positive bowel sounds Musculoskeletal: no edema, pulses present Neurological: non-focal Deviation from normal: Sedated Dx/Plan (1) COVID-19 Code(s): U07.1 - COVID-19 Status: Acute (2) Acute respiratory failure with hypoxia Code(s): J96.01 - ACUTE RESPIRATORY FAILURE WITH HYPOXIA Status: Acute (3) Normocytic anemia Code(s): D64.9 - ANEMIA, UNSPECIFIED Status: Acute (4) Hyponatremia Code(s): E87.1 - HYPO-OSMOLALITY AND HYPONATREMIA Status: Acute (5) Transaminitis Code(s): R74.01 - ELEVATION OF LEVELS OF LIVER TRANSAMINASE LEVELS Status: Acute (6) Elevated troponin Code(s): R77.8 - OTHER SPECIFIED ABNORMALITIES OF PLASMA PROTEINS Status: Acute - Plan Plan: Patient is a 45 y/o male with an unremarkable PMH who presented to the ER for evaluation of SOB. #AHRF 2/2 COVID PNA, possible Bacterial Co-Infection -Symptoms reportedly began on 06/07 -CXR: Suspicion for multi-lobar pneumonia -CTA: No evidence of PE, concern for COVID-19 pneumonia -Patient is currently intubated and sedated, s/p Remdesivir -Procal: 1.11 > 0.26 on 06/21 -s/p Ceftriaxone for 7D (Completed on 06/18) -Dexamethasone 6 mg IV daily -D-Dimer: 1 > 6.16 - currently on Th. 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 Lovenox Dispo: Patient is currently in critical condition and admitted to the ICU for ongoing management of AHRF 2/2 COVID-19 Pneumonia with possible secondary bacterial infection. Will continue steroids and vitamin supplementation as per above, with Cx currently showing NGTD with final read pending. Pulm consulted - recs appreciated with likely proning today. Will continue broad-spectrum ABx and add anti-fugal component prophylactically. Patient's long-term prognosis continues to appear poor at this time. Will contact patient's family to review goals of care. Expected LOS > 48H. Addendum - Attending - Attending Attestation Date/Time: 06/22/20 [id number] I personally evaluated the patient and discussed the management with Dr. Ramos yesterday. I agree with the History, Examination, Assessment and Plan documented above with any addition or exceptions noted below.
--- NOTE | 2020-06-21 09:05 | PRG ---
DATE OF SERVICE: 06/21/2020 35 minutes critical care time. SUBJECTIVE: The patient remains intubated on mechanical ventilation. He is awake but does not follow any commands for me specifically. OBJECTIVE: VITAL SIGNS: His temperature is 100.9, pulse 86, blood pressure 101/57, O2 saturation in the high 80s to low 90s on 85% oxygen. Intake for 24 hours 4305, output 2750. HEENT: Unremarkable. NECK: No adenopathy or JVD. LUNGS: Coarse breath sounds. CARDIAC: S1, S2. Regular. ABDOMEN: Soft. EXTREMITIES: No edema. LABORATORY DATA: Sodium 140, potassium 3.9, chloride 104, CO2 of 27, BUN 16, creatinine 0.5, glucose 108. White blood cell count 11.8, hematocrit 34.7, and platelet count 304. ASSESSMENT: 1. COVID-19 pneumonia with continued respiratory failure requiring mechanical relation. 2. Fever. PLAN: He had antibacterial coverage added yesterday. Antifungal coverage will be added today. He will be placed back in a prone position because of decompensating O2 saturations. His prognosis is extremely poor. Job ID: [id number]
--- NOTE | 2020-06-21 09:25 | RAD ---
PORTABLE CHEST: HISTORY: Respiratory distress. COMPARISON: Prior day's study. FINDINGS: Endotracheal and NG tubes are in satisfactory position. Extensive bilateral lung infiltrates compati ble with multifocal pneumonia are stable. IMPRESSION: Stable exam. POS: FRANNY
[2020-06-21] MEDS: Pantoprazole 40 MG GRANULES PACKET PER TUBE SCH (10:13)
[2020-06-21] MEDS: Lorazepam 2 MG/ML VIAL SLOW IVP PRN ×2 (10:14→10:47)
[2020-06-21] MEDS: Fluconazole 100 MG TAB PER TUBE SCH (10:14)
[2020-06-21] MEDS: Ascorbic Acid 500 mg Chewable Tablet PO SCH (10:14)
[2020-06-21] MEDS: Dexamethasone 4 mg/ml Vial SLOW IVP SCH (10:14)
[2020-06-21] MEDS: Zinc Sulfate 220 MG CAP PO SCH (10:15)
[2020-06-21] MEDS: Polyethylene Glycol 3350 17 GM Packet PER TUBE SCH (10:16)
[2020-06-21] MEDS: Enoxaparin Sodium 80 MG/0.8 ML SYRINGE SC SCH ×2 (10:16→21:51)
[2020-06-21] MEDS: Rocuronium Bromide 10 MG/ML (10ML VIAL) IVP PRN ×3 (10:33→14:10)
[2020-06-21] MEDS: Propofol 1,000 MG/100 ML VIAL IV PRN ×2 (12:52→20:05)
[2020-06-21] MEDS: Lactated Ringer's 1,000 ML IV SCH (19:44)
[2020-06-22] MEDS: Cholecalciferol 1,000 UNITS (25 MCG) TAB PO SCH ×2 (02:17→19:43)
[2020-06-22] MEDS: Piperacillin/Tazobactam 3.375 GM in Sodium Chloride 0.9% 100 ML IVPB SCH ×4 (02:19→17:38)
[2020-06-22] MEDS: Lorazepam 2 MG/ML VIAL SLOW IVP SCH ×4 (02:19→11:12)
[2020-06-22] MEDS: Albuterol 200 PUFF (6.7GM INHALER) INH SCH ×6 (02:20→22:06)
[2020-06-22] MEDS ORDERED: Fentanyl CADD 0 ML ONE (04:56)
[2020-06-22] MEDS: Fentanyl CADD 100 ML IV SCH ×2 (05:01→19:13)
[2020-06-22] MEDS: Propofol 1,000 MG/100 ML VIAL IV PRN ×3 (05:02→21:33)
[2020-06-22 05:06] LABS: #Lymphocytes 0.3 thou/uL (1.20-3.40); #Monocytes 0.3 thou/uL (0.11-0.59); #Neutrophils 10.4 thou/uL (1.40-6.50); %Eosinophils 0.1 % (0.0-10.0); %Lymphocytes 2.4 % (21.0-51.0); %Monocytes 2.5 % (0.0-10.0); Hemoglobin 10.9 g/dL (14.0-18.0); Mean Corpuscular Hemoglobin 30.1 pg (27.0-31.0); Mean Corpuscular Volume 91.1 fL (78.0-98.0); Mean Platelet Volume 8.8 fL (7.4-10.4); Platelet Count 293 thou/uL (130-400); Red Blood Cell (RBC) Count 3.63 mill/uL (4.70-6.10)
[2020-06-22 05:37] LABS: ALT (SGPT) 52 U/L (8-55); AST (SGOT) 21 U/L (5-34); Albumin 2.4 g/dL (3.5-5.0); Alkaline Phosphatase 101 U/L (40-110); Anion Gap 13 mmol/L (10-20); BUN (Urea Nitrogen) 15 mg/dL (8.9-20.6); Bilirubin, Total 0.7 mg/dL (0.2-1.2); Calc. Creatinine Clearance 208 mL/min (70-130); Calcium 8.3 mg/dL (7.8-10.44); Carbon Dioxide 27 mmol/L (22-29); Chloride 102 mmol/L (98-107); Globulin 3.8 g/dL (2.4-3.5); Glucose 100 mg/dL (70-105); Potassium 4.4 mmol/L (3.5-5.1); Protein, Total 6.2 g/dL (6.0-8.3); Sodium 138 mmol/L (136-145)
[2020-06-22 05:38] LABS: Vancomycin, Trough 14.6 ug/mL
[2020-06-22] MEDS: Vancomycin HCl 1.25 GM in Sodium Chloride 0.9% 250 ML 250 ML IVPB SCH ×3 (06:05→19:43)
[2020-06-22] MEDS: Mometasone 200 MCG/Formoterol 5 MCG 120 PUFF INHALER INH SCH ×2 (06:06→18:48)
--- NOTE | 2020-06-22 07:13 | PDOC.FM ---
- Subjective Subjective: Patient was sedated and intubated in the prone position at the time of evaluate. No acute overnight events were reported by the Resident Night Team or Nursing Staff. - Objective Vital Signs & Weight: Vital Signs (12 hours) Pulse Resp Pulse Ox 06/22/20 04:00 24 H 06/22/20 02:26 77 06/22/20 02:00 23 H 06/22/20 00:00 21 H 06/21/20 22:19 74 06/21/20 22:00 23 H 06/21/20 20:00 20 92 L Weight Admit Weight 94.347 kg Weight 88.4 kg Most Recent Monitor Data Heart Rate from ECG 77 NIBP 133/77 NIBP BP-Mean 95 Respiration from ECG 19 SpO2 92 I&O: 06/21/20 06/22/20 06/23/20 06:59 06:59 06:59 Intake Total 4305 405 Output Total 2750 2004 Balance 1555 -1600 Result Diagrams: 06/22/20 04:11 06/22/20 04:11 Phys Exam - Physical Examination Constitutional: NAD Cours breath sounds Difficult to auscultate Gastrointestinal: soft Musculoskeletal: no edema, pulses present Deviation from normal: Sedated and intubated Dx/Plan (1) COVID-19 Code(s): U07.1 - COVID-19 Status: Acute (2) Acute respiratory failure with hypoxia Code(s): J96.01 - ACUTE RESPIRATORY FAILURE WITH HYPOXIA Status: Acute (3) Normocytic anemia Code(s): D64.9 - ANEMIA, UNSPECIFIED Status: Acute (4) Hyponatremia Code(s): E87.1 - HYPO-OSMOLALITY AND HYPONATREMIA Status: Acute (5) Transaminitis Code(s): R74.01 - ELEVATION OF LEVELS OF LIVER TRANSAMINASE LEVELS Status: Acute (6) Elevated troponin Code(s): R77.8 - OTHER SPECIFIED ABNORMALITIES OF PLASMA PROTEINS Status: Acute - Plan Plan: Patient is a 45 y/o male with an unremarkable PMH who presented to the ER for evaluation of SOB. #AHRF 2/2 COVID PNA, possible Bacterial Co-Infection -Symptoms reportedly began on 06/07 -CXR: Suspicion for multi-lobar pneumonia -CTA: No evidence of PE, concern for COVID-19 pneumonia -Patient is currently intubated and sedated, s/p Remdesivir -Procal: 1.11 > 0.26 on 06/21 -s/p Ceftriaxone for 7D (Completed on 06/18) -Dexamethasone 6 mg IV daily -D-Dimer: 1 > 6.16 - currently on . Lovenox -Vit C, Vit D, Zinc -Patient developed fever and increased FiO2 requirement on Bi-Level ventilation on 06/19 - patient continues to fever and now is on Bi-Level Ventilation (34/15, 65%) -BCx: Gm(+) Cocci, Coag(-) Staph - official results pending -UCx: NGTD -Repeat CXR: NAF - although worsening in appearance -Pulm: Consulted, recs appreciated - currently receiving Vanc and Zosyn -Will suplement with empiric antifungal therapy #Transaminitis, improving -Uncertain etiology - likely 2/2 COVID -Hepatitis Panel: Negative -Denied EtOH Abuse, but GGT elevated -Will continue to monitor #Hyponatremia -Likely 2/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 Lovenox Dispo: Patient is currently in critical condition and admitted to the ICU for ongoing management of AHRF 2/2 COVID-19 Pneumonia with possible secondary bacterial infection. Will continue steroids and vitamin supplementation as per above. Pulm consulted - recs appreciated with continued proning. Will continue broad-spectrum ABx with anti-fugal component prophylactically. Patient's long- term prognosis continues to appear poor at this time. Expected LOS > 48H. Addendum - Attending - Attending Attestation Date/Time: 06/22/20 2420 I personally evaluated the patient and discussed the management with Dr. Ramos. I agree with the History, Examination, Assessment and Plan documented above with any addition or exceptions noted below. Pt prone since yesterday. Continue broad-spectrum antibiotics and antifungal. Vent mgmt per pulm.
[2020-06-22] MEDS: Acetaminophen 650 MG/20.3 ML UDCUP PO PRN (07:40)
[2020-06-22] MEDS: Ascorbic Acid 500 mg Chewable Tablet PO SCH (07:43)
[2020-06-22] MEDS: Polyethylene Glycol 3350 17 GM Packet PER TUBE SCH (07:44)
[2020-06-22] MEDS: Zinc Sulfate 220 MG CAP PO SCH (07:44)
[2020-06-22] MEDS: Dexamethasone 4 mg/ml Vial SLOW IVP SCH (07:44)
[2020-06-22] MEDS: Enoxaparin Sodium 80 MG/0.8 ML SYRINGE SC SCH ×2 (07:44→19:44)
[2020-06-22] MEDS: Pantoprazole 40 MG GRANULES PACKET PER TUBE SCH (07:44)
--- NOTE | 2020-06-22 07:56 | PDOC.PULCC ---
CCU Progress Note: Subj/Obj - Subjective Date: 06/22/20 Time: 07:55 Subjective: Patient remains intubated on mechanical ventilation. He is currently in a prone position. - Objective Allergies/Adverse Reactions: Allergies Allergy/AdvReac Type Severity Reaction Status Date / Time No Known Allergies Allergy Verified 06/11/20 21:18 Medications: Current Medications Acetaminophen (Acetaminophen 650 Mg/20.3 Ml Udcup) 1,000 mg PO Q6H PRN PRN Reason: Fever Last Admin: 06/22/20 07:40 Dose: 1,000 mg Documented by: Albuterol Sulfate (Albuterol 200 Puff (6.7gm Inhaler)) 2 puff INH [id number]-OH [facility] Last Admin: 06/22/20 06:06 Dose: 2 puff Documented by: Ascorbic Acid (Ascorbic Acid 500 Mg Chewable Tablet) 1,000 mg PO DAILY [facility] Last Admin: 06/22/20 07:43 Dose: 1,000 mg Documented by: Cholecalciferol (Cholecalciferol 1,000 Units (25 Mcg) Tab) 5,000 units PO HS [facility] Last Admin: 06/22/20 02:17 Dose: 5,000 units Documented by: Dexamethasone (Dexamethasone 4 Mg/Ml Vial) 6 mg SLOW IVP DAILY [facility] Last Admin: 06/22/20 07:44 Dose: 6 mg Documented by: Enoxaparin Sodium (Enoxaparin Sodium 80 Mg/0.8 Ml Syringe) 80 mg SC 0900,2100 [facility] Last Admin: 06/22/20 07:44 Dose: 80 mg Documented by: Fluconazole (Fluconazole 100 Mg Tab) 400 mg PER TUBE DAILY [facility] Last Admin: 06/21/20 10:14 Dose: 400 mg Documented by: Guaifenesin/Dextromethorphan (Guaifenesin Dm 100-10/5 Ml Udcup) 15 ml PO Q4H PRN PRN Reason: Cough Fentanyl Citrate (Fentanyl Bolus) 250 mls @ 0 mls/hr IVPB PRN PRN PRN Reason: Breakthrough pain/agitation Stop: 07/13/20 10:45 Piperacillin Sod/Tazobactam (Sod 3.375 gm/ Sodium Chloride) 100 mls @ 200 mls/hr IVPB Q6HR [facility] Last Admin: 06/22/20 06:05 Dose: 100 mls Documented by: Fentanyl (Fentanyl Cadd) 100 mls @ 0 mls/hr IV INF [facility]; Protocol Stop: 07/20/20 09:30 Last Admin: 06/22/20 05:01 Dose: 100 mls Documented by: Vancomycin HCl 1.25 gm/ Sodium (Chloride) 250 mls @ 166.667 mls/hr IVPB 0400,1000,1600,2200 [facility] Last Admin: 06/22/20 06:05 Dose: 250 mls Documented by: Ibuprofen (Ibuprofen 600 Mg Tab) 600 mg PER TUBE Q6H PRN PRN Reason: Fever > 101 Last Admin: 06/21/20 11:42 Dose: 600 mg Documented by: Lorazepam (Lorazepam 2 Mg/Ml Vial) 2 mg SLOW IVP Q1H PRN PRN Reason: Breakthrough agitation Stop: 07/13/20 10:45 Last Admin: 06/21/20 10:47 Dose: 2 mg Documented by: Lorazepam (Lorazepam 2 Mg/Ml Vial) 2 mg SLOW IVP Q6HR [facility] Last Admin: 06/22/20 06:05 Dose: 2 mg Documented by: Miscellaneous Medication (Electrolyte Replacement Protocol) 0 each FS ASDIR PRN; Protocol PRN Reason: ELECTROLYTE REPLACEMENT Miscellaneous Medication (Vancomycin) 1 each IVPB PRN PRN PRN Reason: Pharmacy to dose Mometasone Furoate/Formoterol Fumar (Mometasone 200 Mcg/Formoterol 5 Mcg 120 Puff Inhaler) 2 puff INH BID-RT [facility] Last Admin: 06/22/20 06:06 Dose: 2 puff Documented by: Morphine Sulfate (Morphine 2 Mg/Ml Vial) 2 mg SLOW IVP Q1H PRN PRN Reason: Breakthrough Pain/Agitation Stop: 07/13/20 10:45 Discontinue Previous Narcotic Pain Medications And Benzodiazepines 1 each FS .ONE [facility] Stop: 07/13/20 10:45 Ondansetron HCl (Ondansetron Odt 4 Mg Tab) 4 mg PO Q6H PRN PRN Reason: Nausea/Vomiting Ondansetron HCl (Ondansetron Pf 4 Mg/2 Ml Vial) 4 mg IVP Q6H PRN PRN Reason: Nausea/Vomiting Pantoprazole Sodium (Pantoprazole 40 Mg Granules Packet) 40 mg PER TUBE DAILY [facility] Last Admin: 06/22/20 07:44 Dose: 40 mg Documented by: Polyethylene Glycol (Polyethylene Glycol 3350 17 Gm Packet) 17 gm PER TUBE DAILY [facility] Last Admin: 06/22/20 07:44 Dose: 17 gm Documented by: Propofol (Propofol 1,000 Mg/100 Ml Vial) 1,000 mg IV INF PRN; Protocol PRN Reason: TO ACHIEVE GOAL RASS Stop: 07/13/20 10:45 Last Admin: 06/22/20 05:02 Dose: 1,000 mg Documented by: Propofol (Propofol Bolus 1,000 Mg/100 Ml Vial) 20 mg IV Q5MIN PRN PRN Reason: BREAKTHROUGH AGITATION Stop: 07/13/20 10:45 Rocuronium [place] (Rocuronium [place] 10 Mg/Ml (10ml Vial)) 100 mg IVP Q30MIN PRN PRN Reason: Agitation Last Admin: 06/21/20 14:10 Dose: 100 mg Documented by: Sodium Chloride (Flush - Normal Saline 10 Ml Syringe) 10 ml IVF PRN PRN PRN Reason: Saline Flush Last Admin: 06/21/20 21:51 Dose: 10 ml Documented by: Zinc Sulfate (Zinc Sulfate 220 Mg Cap) 220 mg PO DAILY [facility] Last Admin: 06/22/20 07:44 Dose: 220 mg Documented by: BEN Reviewed: Yes Vital Signs and I&O: Vital Signs Temp 100.8 F H 06/22/20 07:40 Pulse 92 06/22/20 07:40 Resp 20 06/22/20 07:40 BP 138/81 06/22/20 07:40 Pulse Ox 92 L 06/21/20 20:00 Intake & Output 06/21/20 06/22/20 06/22/20 18:59 06:59 18:59 Intake Total 185 513 Output Total 1115 1040 Balance -930 -527 Weight 194 lb 14.218 oz Intake: Intake, IV Amount 289 Fentanyl CADD 100 ml @ 89 Per Protocol IV INF [facility] Rx#:[id number] Piperacillin/Tazobactam 3 200 .375 gm In Sodium Chloride 0.9% 100 ml @ 200 mls/hr IVPB Q6HR [facility] Rx#:[id number] Tube Feeding 125 204 Tube Irrigant 60 20 Output: Output, [place] 1115 1040 Other: Voiding Method Indwelling Catheter Indwelling Catheter # Bowel Movements 0 Vent Setting: Bilevel, rate 20, high pressure 34, low pressure of 14, FiO2 65% Spontaneous Breathing Test: not done CCU Progress Note: Exam - Physical Exam Constitutional: NAD Deviation from normal: Exam limited due to the prone positioning of the patient. Neck: no JVD Cardiovascular: RRR Deviation from normal: Diminished breath sounds bilaterally and posteriorly. Musculoskeletal: no edema Skin: no rash CCU Progress Note: Data - Labs Result Diagrams: 06/22/20 04:11 06/22/20 04:11 - ABG Interpretation ABG Results: ABG pH 7.54 (7.35-7.45) H 06/13/20 07:05 ABG pCO2 24.4 mmHg (35.0-45.0) L* 06/13/20 07:05 ABG Base Excess -0.4 mEq/L (-2.0 to +3.0) 06/13/20 07:05 - Radiology Interpretation Chest x-ray Status: image reviewed by me Additional comments: Diffuse bilateral infiltrates that have worsened over the last 24 hours. CCU Progress Note: A/P - Time Spent with Patient Time (minutes): 35 (Critical care time) - Plan Plan: Patient continues with severe COVID-19 pneumonia with progressive pulmonary infiltrates despite treatment with prone position ventilation, steroids, anticoagulation, and antibiotics. Based on what we are seeing so far, his prognosis continues to be very poor for functional recovery. We will continue current interventions. Hopefully we can transition him back to supine position ventilation in the next 24 hours as prone positioning has not really helped his oxygenation very much. We are continuing secondary antibiotic coverage.
--- NOTE | 2020-06-22 08:49 | RAD ---
XR Chest 1 View Portable History: Pneumonia Comparison: Radiograph prior day Findings: Endotracheal tube tip at the clavicular level. New pneumomediastinum and subcutaneous emphy sema. Severe lung consolidation. Enteric tube tip below diaphragm although out of field of view. Impression: New subcutaneous emphysema and pneumomediastinum. Possible left hydropneumothorax. nurse Mariusz notified of findings via telephone at 8:45 AM.
[2020-06-22] MEDS: Fluconazole 100 MG TAB PER TUBE SCH (09:00)
[2020-06-22] MEDS ORDERED: Lidocaine 1% w/Epinephrine 1:100K 20 ML VIAL ONE (09:04)
[2020-06-22] MEDS: Rocuronium Bromide 10 MG/ML (10ML VIAL) IVP PRN (09:10)
--- NOTE | 2020-06-22 09:53 | RAD ---
XR Chest 1 View Portable History: Chest tube Comparison: Radiograph same day Findings: Size decreased left hydropneumothorax. Subcutaneous emphysema is similar. Endotracheal tube tip similar location as well as enteric tube. Impression: New left thoracostomy tube with size decreased left hydropneumothorax.
--- NOTE | 2020-06-22 11:47 | EKG ---
Test Reason : Blood Pressure : / mmHG Vent. Rate : 110 BPM Atrial Rate : 110 BPM P-R Int : 132 ms QRS Dur : 082 ms QT Int : 312 ms P-R-T Axes : 049 002 024 degrees QTc Int : 422 ms Sinus tachycardia Otherwise normal ECG Confirmed by CATHY GARVEY M.D. ([id number]), image editor DENNYS REID ([id number]) on 06/22/2020 11:47:17 AM Referred By: Confirmed By:CATHY GARVEY M.D.
[2020-06-22] MEDS ORDERED: Lorazepam 2 MG/ML VIAL SLOW IVP SCH (17:45)
[2020-06-22] MEDS ORDERED: Fentanyl CADD 100 ML ONE ×2 (19:05→19:06)
[2020-06-23] MEDS: Lorazepam 2 MG/ML VIAL SLOW IVP SCH ×4 (01:14→20:24)
[2020-06-23] MEDS: Piperacillin/Tazobactam 3.375 GM in Sodium Chloride 0.9% 100 ML IVPB SCH ×4 (01:14→17:28)
[2020-06-23] MEDS: Vancomycin HCl 1.25 GM in Sodium Chloride 0.9% 250 ML 250 ML IVPB SCH ×4 (01:14→20:23)
[2020-06-23] MEDS: Albuterol 200 PUFF (6.7GM INHALER) INH SCH ×3 (02:28→19:31)
[2020-06-23 04:47] LABS: #Lymphocytes 0.4 thou/uL (1.20-3.40); #Monocytes 0.3 thou/uL (0.11-0.59); #Neutrophils 9.3 thou/uL (1.40-6.50); %Eosinophils 0.1 % (0.0-10.0); %Lymphocytes 4.2 % (21.0-51.0); %Monocytes 2.5 % (0.0-10.0); %Neutrophils 93.2 % (42.0-75.0); Hemoglobin 10.4 g/dL (14.0-18.0); Mean Corpuscular HGB CONC 32.1 g/dL (32.0-36.0); Mean Corpuscular Hemoglobin 29.2 pg (27.0-31.0); Mean Corpuscular Volume 90.8 fL (78.0-98.0); Mean Platelet Volume 8.6 fL (7.4-10.4); Platelet Count 257 thou/uL (130-400); RBC Distribution Width 12.2 % (11.5-14.5); Red Blood Cell (RBC) Count 3.56 mill/uL (4.70-6.10)
[2020-06-23 05:12] LABS: ALT (SGPT) 38 U/L (8-55); AST (SGOT) 20 U/L (5-34); Albumin 2.4 g/dL (3.5-5.0); Alkaline Phosphatase 91 U/L (40-110); Anion Gap 14 mmol/L (10-20); BUN (Urea Nitrogen) 15 mg/dL (8.9-20.6); Bilirubin, Total 0.7 mg/dL (0.2-1.2); Calc. Creatinine Clearance 208 mL/min (70-130); Carbon Dioxide 27 mmol/L (22-29); Chloride 103 mmol/L (98-107); Globulin 3.6 g/dL (2.4-3.5); Glucose 111 mg/dL (70-105); Potassium 4.1 mmol/L (3.5-5.1); Sodium 140 mmol/L (136-145)
[2020-06-23] MEDS ORDERED: Fentanyl CADD 0 ML ONE (05:52)
--- NOTE | 2020-06-23 06:29 | PDOC.FM ---
- Subjective Subjective: Patient was intubated and sedated in the supine position at the time of evaluation. No acute overnight events were reported by the Resident Night Team. - Objective Vital Signs & Weight: Vital Signs (12 hours) Pulse Resp BP Pulse Ox 06/23/20 04:00 25 H 06/23/20 02:27 60 06/23/20 02:00 21 H 06/23/20 00:00 20 06/22/20 22:05 60 102/63 06/22/20 22:00 22 H 06/22/20 20:00 22 H 95 06/22/20 18:48 60 Weight Admit Weight 94.347 kg Weight 88.4 kg Most Recent Monitor Data Heart Rate from ECG 58 NIBP 100/60 NIBP BP-Mean 73 Respiration from ECG 20 SpO2 95 I&O: 06/21/20 06/22/20 06/23/20 06:59 06:59 06:59 Intake Total 4305 698 1122 Output Total 2750 1312 0228 Balance 6802 -8538 -105 Result Diagrams: 06/23/20 04:20 06/23/20 04:20 Phys Exam - Physical Examination Non-purposeful movements HEENT: moist MMs Neck: supple Course breath sounds Cardiovascular: RRR, no significant murmur, no rub Gastrointestinal: soft, non-tender, no distention Diminished bowel sounds Musculoskeletal: no edema, pulses present Dx/Plan (1) COVID-19 Code(s): U07.1 - COVID-19 Status: Acute (2) Acute respiratory failure with hypoxia Code(s): J96.01 - ACUTE RESPIRATORY FAILURE WITH HYPOXIA Status: Acute (3) Normocytic anemia Code(s): D64.9 - ANEMIA, UNSPECIFIED Status: Acute (4) Hyponatremia Code(s): E87.1 - HYPO-OSMOLALITY AND HYPONATREMIA Status: Acute (5) Transaminitis Code(s): R74.01 - ELEVATION OF LEVELS OF LIVER TRANSAMINASE LEVELS Status: Acute (6) Elevated troponin Code(s): R77.8 - OTHER SPECIFIED ABNORMALITIES OF PLASMA PROTEINS Status: Acute - Plan Plan: Patient is a 45 y/o male with an unremarkable PMH who presented to the ER for evaluation of SOB. #AHRF 2/2 COVID PNA, possible Bacterial Co-Infection -Symptoms reportedly began on 06/07 -CXR: Suspicion for multi-lobar pneumonia -CTA: No evidence of PE, concern for COVID-19 pneumonia -Patient is currently intubated and sedated, s/p Remdesivir -Procal: 1.11 > 0.26 on 06/21 -s/p Ceftriaxone for 7D (Completed on 06/18) -Dexamethasone 6 mg IV daily -D-Dimer: 1 > 6.16 - currently on Lovenox -Vit C, Vit D, Zinc -Patient developed fever and increased FiO2 requirement on Bi-Level ventilation on 06/19 - no fevers in past 24H -Bilevel: 34/15, FiO2 65% -BCx: Gm(+) Cocci, Coag(-) Staph - sensitivities pending -UCx: NGTD -Repeat CXR: NAF - although worsening in appearance -Pulm: Consulted, recs appreciated - currently receiving Vanc and Zosyn -Will suplement with empiric antifungal therapy -CXR on 06/22 demonstrated possibly Hydropneumothorax - s/p chest tube placement by Pulm #Transaminitis, improving -Uncertain etiology - likely 2/2 COVID -Hepatitis Panel: Negative -Denied EtOH Abuse, but GGT elevated -Will continue to monitor #Hyponatremia -Likely 2/2 SIADH related to illness -Resolved #Normocytic Anemia -Hgb : 13.6 > 10.9 - stable -Patient appears hemodynamically stable w/o evidence of acute bleed -Will require outpatient follow-up s/p current illness #Elevated Troponin -Trop: 0.06 > 0.1 > 0.06 -Likely due to demand ischemia PCP: CC Code: Full Diet: Tube Feeds, Naval Inspector consulted Activity: Bed Rest VTE PPx: Lovenox Dispo: Patient is currently in critical condition and admitted to the ICU for ongoing management of AHRF 2/2 COVID-19 Pneumonia with possible secondary bacterial infection. Will continue steroids and vitamin supplementation as per above. Pulm consulted - recs appreciated with continued proning as tolerated. Will continue broad-spectrum ABx with anti-fugal component prophylactically. Patient's long-term prognosis continues to appear poor at this time. Expected LOS > 48H. Addendum - Attending - Attending Attestation Date/Time: 06/23/20 7251 I personally evaluated the patient and discussed the management with Dr. Ramos. I agree with the History, Examination, Assessment and Plan documented above with any addition or exceptions noted below. 2/2 blood cultures positive for staph epidermidis. Continuing antibiotics. Vent mgmt per pulm. Pt is s/p chest tube. Pt becomes agitated. Is currently supine.
[2020-06-23] MEDS: Propofol 1,000 MG/100 ML VIAL IV PRN ×3 (07:11→17:28)
[2020-06-23] MEDS: Mometasone 200 MCG/Formoterol 5 MCG 120 PUFF INHALER INH SCH ×2 (07:30→18:38)
[2020-06-23] MEDS: Lorazepam 2 MG/ML VIAL SLOW IVP PRN ×2 (07:31→08:45)
[2020-06-23] MEDS: Rocuronium Bromide 10 MG/ML (10ML VIAL) IVP PRN ×7 (07:38→16:00)
[2020-06-23] MEDS: Dexamethasone 4 mg/ml Vial SLOW IVP SCH (07:57)
[2020-06-23] MEDS: Fluconazole 100 MG TAB PER TUBE SCH (07:59)
[2020-06-23] MEDS: Ascorbic Acid 500 mg Chewable Tablet PO SCH (08:01)
[2020-06-23] MEDS: Zinc Sulfate 220 MG CAP PO SCH (08:03)
[2020-06-23] MEDS: Polyethylene Glycol 3350 17 GM Packet PER TUBE SCH (08:03)
[2020-06-23] MEDS: Pantoprazole 40 MG GRANULES PACKET PER TUBE SCH (08:03)
[2020-06-23] MEDS: Enoxaparin Sodium 80 MG/0.8 ML SYRINGE SC SCH ×2 (08:03→20:24)
[2020-06-23] MEDS: Senokot S 8.6-50 MG TAB PER TUBE SCH ×2 (08:03→20:23)
[2020-06-23] MEDS: Acetaminophen 650 MG/20.3 ML UDCUP PO PRN (08:15)
[2020-06-23] MEDS ORDERED: Fentanyl CADD 100 ML ONE ×2 (08:32→21:23)
[2020-06-23] MEDS: Fentanyl CADD 100 ML IV SCH ×2 (08:50→21:29)
--- NOTE | 2020-06-23 09:09 | RAD ---
XR Chest 1 View Portable History: Pneumonia Comparison: Radiograph prior day Findings: Subcutaneous emphysema is similar. Resolved left pneumothorax and majority of the pneumomed iastinum has resolved. Slight decreased right hemithorax subcutaneous emphysema. Endotracheal tube tip at the clavicular level. Enteric tube side port below the GE junction. Impression: Resolving left hydropneumothorax and pneumomediastinum.
--- NOTE | 2020-06-23 11:12 | PRG ---
DATE OF SERVICE: 06/23/2020 35 minutes of critical care time. SUBJECTIVE: The patient remains intubated on mechanical ventilation. He becomes quite agitated at times. OBJECTIVE: VITAL SIGNS: Temperature is 101.5, pulse 130s, blood pressure 160/100. 24-hour intake 1152, output 1867. HEENT: Unremarkable. NECK: No JVD. LUNGS: Coarse rhonchi. He has chest tube on the left. No air leak. CARDIOVASCULAR: S1 and S2, regular. ABDOMEN: Soft, obese, nontender. EXTREMITIES: No edema. DIAGNOSTIC STUDIES: His x-ray shows improvement in the left hydropneumothorax, still less subcutaneous air. LABORATORY DATA: White blood cell count 10, hematocrit 32.3, and platelet count 257. Sodium 140, potassium 4.1, chloride 103, CO2 of 27, BUN 15, creatinine 0.6, and glucose 111. ASSESSMENT: 1. COVID-19 pneumonia. 2. Acute hypoxic respiratory failure, requiring mechanical ventilation. 3. Left hydropneumothorax, now status post chest tube placement. 4. Continued fever. PLAN: 1. Vancomycin will be continued as the patient grew out Staph epidermidis from the blood cultures. This is probably a contaminant, but we cannot be sure. 2. Continue anticoagulation. 3. Add Versed drip. 4. Continue steroids. Job ID: [id number]
[2020-06-23] MEDS: Cholecalciferol 1,000 UNITS (25 MCG) TAB PO SCH (20:23)
[2020-06-24] MEDS: Piperacillin/Tazobactam 3.375 GM in Sodium Chloride 0.9% 100 ML IVPB SCH ×4 (01:14→17:27)
[2020-06-24] MEDS: Vancomycin HCl 1.25 GM in Sodium Chloride 0.9% 250 ML 250 ML IVPB SCH ×4 (02:43→21:07)
[2020-06-24] MEDS: Lorazepam 2 MG/ML VIAL SLOW IVP SCH ×2 (02:43→11:07)
[2020-06-24 04:49] LABS: #Eosinphils 0.1 thou/uL (0.0-0.7); #Lymphocytes 0.4 thou/uL (1.20-3.40); #Monocytes 0.2 thou/uL (0.11-0.59); #Neutrophils 7.8 thou/uL (1.40-6.50); %Eosinophils 0.6 % (0.0-10.0); %Lymphocytes 4.4 % (21.0-51.0); %Monocytes 2.3 % (0.0-10.0); %Neutrophils 92.7 % (42.0-75.0); Mean Corpuscular HGB CONC 33.1 g/dL (32.0-36.0); Mean Corpuscular Hemoglobin 30.4 pg (27.0-31.0); Mean Corpuscular Volume 91.6 fL (78.0-98.0); Mean Platelet Volume 8.8 fL (7.4-10.4); Platelet Count 219 thou/uL (130-400); RBC Distribution Width 12.1 % (11.5-14.5); Red Blood Cell (RBC) Count 3.29 mill/uL (4.70-6.10); White Blood Cell (WBC) Count 8.4 thou/uL (4.8-10.8)
[2020-06-24 05:28] LABS: ALT (SGPT) 47 U/L (8-55); AST (SGOT) 22 U/L (5-34); Albumin 2.3 g/dL (3.5-5.0); Alkaline Phosphatase 101 U/L (40-110); Anion Gap 10 mmol/L (10-20); BUN (Urea Nitrogen) 17 mg/dL (8.9-20.6); Bilirubin, Total 0.6 mg/dL (0.2-1.2); Calc. Creatinine Clearance 214 mL/min (70-130); Calcium 7.9 mg/dL (7.8-10.44); Carbon Dioxide 31 mmol/L (22-29); Chloride 102 mmol/L (98-107); Globulin 3.4 g/dL (2.4-3.5); Glucose 101 mg/dL (70-105); Potassium 4.1 mmol/L (3.5-5.1); Protein, Total 5.7 g/dL (6.0-8.3); Sodium 139 mmol/L (136-145)
--- NOTE | 2020-06-24 05:38 | OP ---
DATE OF PROCEDURE: 06/22/2020 PROCEDURE PERFORMED: Left chest tube placement. PREOPERATIVE DIAGNOSIS: Left hydropneumothorax. POSTOPERATIVE DIAGNOSIS: Left hydropneumothorax. ANESTHESIA: 1% lidocaine without epinephrine. DESCRIPTION OF PROCEDURE: This was performed on an emergent basis. The patient was placed back in the supine position. Left axillary area at the nipple line was cleansed with chlorhexidine and draped sterilely. A scalpel was used to make a small incision in the skin. Blunt dissection with forceps was performed to the level of intercostals. Dissection was then made to the intercostal muscle into the pleural space. The lung was palpated with a finger. A 32-Austrian chest tube was placed in the pleural space. The tube was sutured in the position. The tube was sterilely dressed and placed to Pleur-Evac suction. The patient tolerated the procedure well. Job ID: [id number]
[2020-06-24] MEDS: Propofol 1,000 MG/100 ML VIAL IV PRN ×3 (07:22→17:27)
[2020-06-24] MEDS: Mometasone 200 MCG/Formoterol 5 MCG 120 PUFF INHALER INH SCH ×2 (07:29→19:18)
--- NOTE | 2020-06-24 08:23 | PDOC.FM ---
- Subjective Subjective: Sedated. No acute events overnight. Off sedation, will continue to fight vent and becomes very agitated. - Objective MAR Reviewed: Yes Vital Signs & Weight: Vital Signs (12 hours) Temp Pulse Resp BP 06/24/20 08:00 99.5 F 06/24/20 07:51 60 131/70 06/24/20 06:00 06/24/20 04:00 06/24/20 02:39 60 06/24/20 02:00 06/24/20 00:00 06/23/20 22:41 59 L 117/68 06/23/20 22:00 20 Weight Admit Weight 94.347 kg Weight 87.5 kg Most Recent Monitor Data Heart Rate from ECG 63 NIBP 143/79 NIBP BP-Mean 100 Respiration from ECG 20 SpO2 88 I&O: 06/23/20 06/24/20 06/25/20 06:59 06:59 06:59 Intake Total 1152 1564 30 Output Total 1867 1645 160 Balance -715 -81 -130 Result Diagrams: 06/24/20 04:20 06/24/20 04:20 Phys Exam - Physical Examination sedated HEENT: moist MMs ETT in place Very mild course rhonchi at BL lung bases, worse on Right Cardiovascular: RRR, no significant murmur Gastrointestinal: soft, no distention, positive bowel sounds Musculoskeletal: no edema Dx/Plan (1) Acute respiratory failure with hypoxia Code(s): J96.01 - ACUTE RESPIRATORY FAILURE WITH HYPOXIA Status: Acute (2) COVID-19 Code(s): U07.1 - COVID-19 Status: Acute (3) Hyponatremia Code(s): E87.1 - HYPO-OSMOLALITY AND HYPONATREMIA Status: Acute (4) Transaminitis Code(s): R74.01 - ELEVATION OF LEVELS OF LIVER TRANSAMINASE LEVELS Status: Acute - Plan Plan: 45 y/o male with an unremarkable PMH who presented to the ER for evaluation of SOB. #AHRF 2/2 COVID PNA, possible Bacterial Co-Infection -Symptoms reportedly began on 06/07 -CXR: Suspicion for multi-lobar pneumonia -CTA: No evidence of PE, concern for COVID-19 pneumonia -Patient is currently intubated and sedated, s/p Remdesivir -Procal: 1.11 > 0.26 on 06/21 -s/p Ceftriaxone for 7D (Completed on 06/18) -Dexamethasone 6 mg IV daily -D-Dimer: 1 > 6.16 - currently on Th. Lovenox -Vit C, Vit D, Zinc -Patient developed fever and increased FiO2 requirement on Bi-Level ventilation on 06/19 - no fevers in past 24H -Bilevel: 34/15, FiO2 60%, PEEP 15, PS 12; however sating in mid to low 80s, will increase FiO2 -BCx: MRSA sensitive to vanc, doxy, and levaquin, consider de-escalation of abx -UCx: NGTD -Repeat CXR: NAF - although worsening in appearance -Pulm: Consulted, recs appreciated - currently receiving Vanc and Zosyn -Will supplement with empiric antifungal therapy -CXR on 06/22 demonstrated possibly Hydropneumothorax - s/p chest tube placement by Pulm draining serosanguinous fluid #Transaminitis, improving - Likely 2/2 COVID - Hepatitis Panel: Negative - Will continue to monitor #Hyponatremia, resolved -Likely 2/2 SIADH related to illness #Normocytic Anemia -Hgb : 13.6 > 10.9 - stable -Patient appears hemodynamically stable w/o evidence of acute bleed -Will require outpatient follow-up s/p current illness #Elevated Troponin, resolved -Trop: 0.06 > 0.1 > 0.06 -Likely due to demand ischemia and COVID PNA PCP: CC Code: Full Diet: Tube Feeds, Surveillance Observer consulted VTE PPx: Th. Lovenox Lines/Tube: Chest tube (06/22), Kina, Razo: Patient is currently in critical condition and admitted to the ICU for ongoing management of AHRF 2/2 COVID-19 Pneumonia with possible secondary bacterial infection. Continue steroids and abx per above and pulm recs. Pulm consulted - recs appreciated with continued proning as tolerated. Increase vent settings this AM. Addendum - Attending - Attending Attestation Date/Time: 06/24/20 1561 I personally evaluated the patient and discussed the management with Dr. Winters I agree with the History, Examination, Assessment and Plan documented above with any addition or exceptions noted below - Intubated and sedated. Afebrile VSS A/P: 1) Acute hypoxic resp failure secondary to COVID pneumonia - continue current sedation/paralytics as needed; not weanable to this time. Appreciate pulmonary assistance. 2) Pneumothorax b/l- second chest tube placed today; continue pleurevac.
--- NOTE | 2020-06-24 08:27 | RAD ---
Portable frontal chest radiograph: 06/24/2020 COMPARISON: 06/23/2020 HISTORY: Intubated patient, pneumonia FINDINGS: Stable endotracheal tube and nasogastric tube. Stable subcutaneous gas in the supraclavicul ar regions and bilateral chest nugent, left greater than right. There is extensive bilateral airspace disease, stable. A new small apical pneumothorax is noted on the right. There is a left-sided chest tube. No discrete left-sided pneumothorax is appreciated. IMPRESSION: Lines and tubes as detailed above. Findings suggesting a new small right apical pneumotho rax. Subcutaneous emphysema and diffuse airspace disease as detailed above. Results called to the covering CCU nurseMaggie, at 8:24 AM 06/24/2020
[2020-06-24] MEDS: Enoxaparin Sodium 80 MG/0.8 ML SYRINGE SC SCH ×2 (08:30→21:08)
[2020-06-24] MEDS: Pantoprazole 40 MG GRANULES PACKET PER TUBE SCH (08:30)
[2020-06-24] MEDS: Zinc Sulfate 220 MG CAP PO SCH (08:30)
[2020-06-24] MEDS: Ascorbic Acid 500 mg Chewable Tablet PO SCH (08:30)
[2020-06-24] MEDS: Fluconazole 100 MG TAB PER TUBE SCH (08:30)
[2020-06-24] MEDS: Polyethylene Glycol 3350 17 GM Packet PER TUBE SCH (08:30)
[2020-06-24] MEDS: Senokot S 8.6-50 MG TAB PER TUBE SCH ×2 (08:30→21:12)
[2020-06-24] MEDS: Dexamethasone 4 mg/ml Vial SLOW IVP SCH (08:30)
[2020-06-24] MEDS ORDERED: Vecuronium 10 MG VIAL ONE (09:09)
[2020-06-24] MEDS ORDERED: Lidocaine 1% w/Epinephrine 1:100K 20 ML VIAL ONE (09:16)
[2020-06-24] MEDS: Rocuronium Bromide 10 MG/ML (10ML VIAL) IVP PRN ×3 (10:00→12:49)
--- NOTE | 2020-06-24 10:06 | RAD ---
CHEST 1 VIEW: HISTORY: Chest tube placement. COMPARISON: Radiograph same day. FINDINGS: The right-sided thoracostomy tube is in place with a kink at the side port. Right apical pneumothora x has decreased. Left thoracostomy tube is similar. Subcutaneous emphysema is similar on the left and slightly increa sed on the right. IMPRESSION: 1. Interval placement of right thoracostomy tube with a subtle kink near the side port with size dec reased right pneumothorax. 2. Similar appearance of the endotracheal and enteric tubes. 3. Similar appearance of left thoracostomy tube. POS: [facility]
--- NOTE | 2020-06-24 10:08 | OP ---
DATE OF PROCEDURE: 06/24/2020 PROCEDURE PERFORMED: Right thoracostomy tube placement. PREOPERATIVE DIAGNOSIS: Right pneumothorax. POSTOPERATIVE DIAGNOSIS: Right pneumothorax. ANESTHESIA: Local 1% lidocaine without epinephrine. DESCRIPTION OF PROCEDURE: The patient's right lateral hemothorax scrubbed with chlorhexidine and draped sterilely. This was just below the nipple line. The entry site was anesthetized with 1% lidocaine without epinephrine. The site was prepped with chlorhexidine and draped sterilely. A scalpel was used to make a small insertion at the midaxillary line. Blunt dissection was performed with forceps, cleaned with hemostats through the subcutaneous tissue through the intercostal muscles until pleural space was entered. The lung was palpated. A 32-Welsh chest tube was then placed in the pleural space and sutured into position. Petroleum jelly was used to seal the entry site and the site was sterilely dressed. The chest tube was hooked to a Pleur-Evac suction. He tolerated the procedure well. Job ID: [id number]
[2020-06-24] MEDS ORDERED: Fentanyl CADD 100 ML ONE (10:35)
--- NOTE | 2020-06-24 10:39 | PRG ---
DATE OF SERVICE: 06/24/2020 30 minutes of critical care time. SUBJECTIVE: Mr. Vincent remains intubated on mechanical ventilation. There has been no acute change overnight. OBJECTIVE: VITAL SIGNS: Temperature 99.5, pulse 63, blood pressure 143/79, O2 saturation in the high 80s to low 90s. Intake 1564, output 1645. HEENT: Unremarkable. NECK: No JVD. LUNGS: Diminished breath sounds bilaterally. CARDIAC: S1 and S2. Regular. ABDOMEN: Soft. EXTREMITIES: No edema. LABORATORY DATA: Sodium 139, potassium 4.1, chloride 102, CO2 of 31, BUN 70, creatinine 0.5, glucose 101. White blood cell count 8.4, hematocrit 30, and platelet count 219. His x-ray shows a contained right pneumothorax. ASSESSMENT: 1. Right pneumothorax. 2. COVID-19 pneumonia. 3. Acute respiratory failure requiring mechanical ventilation. PLAN: Not weanable at this time. We will place chest tube on the right. Continue steroids, antibiotics, anticoagulants. Prognosis extremely poor. Job ID: [id number]
[2020-06-24] MEDS: Fentanyl CADD 100 ML IV SCH (12:20)
[2020-06-24 15:38] LABS: Vancomycin, Trough 17.9 ug/mL
[2020-06-24] MEDS: Cholecalciferol 1,000 UNITS (25 MCG) TAB PO SCH (21:12)
[2020-06-25] MEDS: Propofol 1,000 MG/100 ML VIAL IV PRN ×4 (00:06→18:19)
[2020-06-25] MEDS ORDERED: Fentanyl CADD 0 ML ONE ×2 (00:13)
[2020-06-25] MEDS ORDERED: Fentanyl CADD 100 ML ONE ×2 (00:14→13:25)
[2020-06-25] MEDS: Fentanyl CADD 100 ML IV SCH ×2 (00:18→13:29)
[2020-06-25] MEDS: Piperacillin/Tazobactam 3.375 GM in Sodium Chloride 0.9% 100 ML IVPB SCH ×4 (01:38→17:27)
[2020-06-25] MEDS: Rocuronium Bromide 10 MG/ML (10ML VIAL) IVP PRN ×2 (02:30→22:52)
[2020-06-25 05:06] LABS: #Lymphocytes 0.3 thou/uL (1.20-3.40); #Monocytes 0.1 thou/uL (0.11-0.59); #Neutrophils 6.3 thou/uL (1.40-6.50); %Basophils 0.2 % (0.0-1.0); %Eosinophils 0.6 % (0.0-10.0); %Lymphocytes 4.7 % (21.0-51.0); %Monocytes 1.9 % (0.0-10.0); %Neutrophils 92.6 % (42.0-75.0); Hemoglobin 10.5 g/dL (14.0-18.0); Mean Corpuscular HGB CONC 32.7 g/dL (32.0-36.0); Mean Corpuscular Hemoglobin 29.7 pg (27.0-31.0); Mean Corpuscular Volume 90.9 fL (78.0-98.0); Mean Platelet Volume 8.9 fL (7.4-10.4); Platelet Count 215 thou/uL (130-400); RBC Distribution Width 12.1 % (11.5-14.5); Red Blood Cell (RBC) Count 3.52 mill/uL (4.70-6.10); White Blood Cell (WBC) Count 6.8 thou/uL (4.8-10.8)
[2020-06-25] MEDS: Vancomycin HCl 1.25 GM in Sodium Chloride 0.9% 250 ML 250 ML IVPB SCH ×2 (05:19→10:25)
[2020-06-25] MEDS: Mometasone 200 MCG/Formoterol 5 MCG 120 PUFF INHALER INH SCH ×2 (07:59→18:58)
--- NOTE | 2020-06-25 08:17 | RAD ---
Chest one view HISTORY: Pneumonia. Follow-up. COMPARISON: 06/24/2020. FINDINGS: Cardiac silhouette is now more obscured by worsening density of widespread airspace and int erstitial opacity involving each lung. Mediastinum is slightly shifted leftward with patient rotation. Lines and tubes are unchanged in position. The kink associated with the distal end of the r ight thoracostomy tube is less acute than on the prior study. No evidence of pneumothorax. Chest wall and neck gas again demonstrated, not significantly changed. IMPRESSION : Worsening diffuse infiltrate throughout the lungs.
[2020-06-25] MEDS: Polyethylene Glycol 3350 17 GM Packet PER TUBE SCH (08:18)
[2020-06-25] MEDS: Fluconazole 100 MG TAB PER TUBE SCH ×2 (08:19→08:20)
[2020-06-25] MEDS: Pantoprazole 40 MG GRANULES PACKET PER TUBE SCH (08:19)
[2020-06-25] MEDS: Zinc Sulfate 220 MG CAP PO SCH (08:19)
[2020-06-25] MEDS: Ascorbic Acid 500 mg Chewable Tablet PO SCH (08:19)
[2020-06-25] MEDS: Dexamethasone 4 mg/ml Vial SLOW IVP SCH (08:21)
[2020-06-25] MEDS: Enoxaparin Sodium 80 MG/0.8 ML SYRINGE SC SCH ×2 (08:21→19:52)
[2020-06-25] MEDS: Senokot S 8.6-50 MG TAB PER TUBE SCH ×2 (08:21→19:52)
--- NOTE | 2020-06-25 08:51 | PDOC.FM ---
- Subjective Subjective: No acute events overnight. Did have to increase FiO2 due to desats overnight. Very agitated off sedation. Currently intubated and sedated. - Objective MAR Reviewed: Yes Vital Signs & Weight: Vital Signs (12 hours) Pulse Resp BP 06/25/20 07:56 68 124/69 06/25/20 06:00 22 H 06/25/20 04:00 22 H 06/25/20 02:00 22 H 06/25/20 00:00 23 H 06/24/20 22:00 22 H Weight Admit Weight 94.347 kg Weight 86.2 kg Most Recent Monitor Data Heart Rate from ECG 70 NIBP 124/69 NIBP BP-Mean 87 Respiration from ECG 20 SpO2 97 I&O: 06/24/20 06/25/20 06/26/20 06:59 06:59 06:59 Intake Total 1564 2236 Output Total 1645 3380 125 Balance -81 -1144 -125 Result Diagrams: 06/26/20 04:10 06/26/20 04:10 Radiology Reviewed by me: Yes (worsening diffuse airspace disease) Phys Exam - Physical Examination sedated HEENT: moist MMs ETT and OG in place Neck: supple Course BS throughout Cardiovascular: RRR, no significant murmur Gastrointestinal: soft, no distention, positive bowel sounds Musculoskeletal: no edema Dx/Plan (1) Acute respiratory failure with hypoxia Code(s): J96.01 - ACUTE RESPIRATORY FAILURE WITH HYPOXIA Status: Acute (2) COVID-19 Code(s): U07.1 - COVID-19 Status: Acute (3) Hyponatremia Code(s): E87.1 - HYPO-OSMOLALITY AND HYPONATREMIA Status: Acute (4) Transaminitis Code(s): R74.01 - ELEVATION OF LEVELS OF LIVER TRANSAMINASE LEVELS Status: Acute - Plan Plan: 45 y/o male with an unremarkable PMH who presented to the ER for evaluation of SOB. #AHRF 2/2 COVID PNA, possible Bacterial Co-Infection -Symptoms reportedly began on 06/07 -CXR: Suspicion for multi-lobar pneumonia - worsening diffuse infiltrates -CTA: No evidence of PE, concern for COVID-19 pneumonia -Patient is currently intubated and sedated, s/p Remdesivir -Procal: 1.11 > 0.26 -s/p Ceftriaxone for 7D (Completed on 06/18) -Dexamethasone 6 mg IV daily -D-Dimer: 1 > 6.16 - currently on Th. Lovenox -Vit C, Vit D, Zinc -Patient developed fever and increased FiO2 requirement on Bi-Level ventilation on 06/19 - no fevers since -Bilevel: 34/16, FiO2 90% -BCx: MRSA sensitive to vanc, doxy, and levaquin, consider de-escalation of abx -UCx: NGTD -Repeat CXR: NAF - although worsening in appearance -Pulm: Consulted, recs appreciated - currently receiving Vanc and Zosyn. Will supplement with empiric antifungal therapy -CXR on 06/22 demonstrated possibly Hydropneumothorax - s/p chest tube placement by Pulm draining serosanguinous fluid. CXR on 06/24 with right apical pneumo. Chest tube placed. -Overall worsening resp status, extremely poor prognosis at this time #Transaminitis, improving - Likely 2/2 COVID - Hepatitis Panel: Negative - Will continue to monitor #Hyponatremia, resolved -Likely 2/2 SIADH related to illness #Normocytic Anemia -Hgb : 13.6 > 10.9 - stable -Patient appears hemodynamically stable w/o evidence of acute bleed -Will require outpatient follow-up s/p current illness #Elevated Troponin, resolved -Trop: 0.06 > 0.1 > 0.06 -Likely due to demand ischemia and COVID PNA PCP: CC Code: Full Diet: Tube Feeds, Welfare Investigator consulted VTE PPx: Th. Lovenox Lines/Tube: L Chest tube (06/22), R Chest tube (06/24), Kina, Dispo: Patient is currently in critical condition and admitted to the ICU for ongoing management of AHRF 2/2 COVID-19 Pneumonia with possible secondary bacterial infection. Continue steroids and abx per above and pulm recs. Pulm consulted - recs appreciated with continued proning as tolerated. Increase vent settings. Extremely poor prognosis. Addendum - Attending - Attending Attestation Date/Time: 06/26/20 0090 I personally evaluated the patient and discussed the management with Dr. Winters on 06/25/2020 I agree with the History, Examination, Assessment and Plan documented above with any addition or exceptions noted below- Intubated/sedated. Afebrile VSS. A/P: 1) Acute hypoxic resp failure secondary to COVID pneumonia - not weanable at this time. Continue vent support. 2) B/L Pneumothoraces- continue chest tubes
--- NOTE | 2020-06-25 09:19 | PRG ---
DATE OF SERVICE: 06/25/2020 This is 40 minutes of critical care time. SUBJECTIVE: The patient remains intubated on mechanical ventilation. There has been no acute change overnight. OBJECTIVE: VITAL SIGNS: Temperature 98.2, pulse 70, blood pressure 124/69. He is currently on bilevel rate 20, high pressure 34, low pressure 15, FiO2 90%, O2 saturations running about 99%. 24-hour intake 2236, output 3318. HEENT: Unremarkable. NECK: No JVD. LUNGS: Coarse rhonchi. CARDIAC: S1, S2. Regular. ABDOMEN: Soft. EXTREMITIES: Trace edema. IMAGING STUDIES: His chest tubes are intact. No air leak seen on either side. X-ray shows diffuse bilateral infiltrates which are worse. LABORATORY DATA: Sodium 139, potassium 4.1, chloride 102, CO2 of 31, BUN 17, creatinine 0.5, glucose 101. White blood cell count 6.8, hematocrit 32.0, and platelet count 215. ASSESSMENT: 1. COVID-19 pneumonia. 2. Bilateral pneumothoraces. 3. Acute respiratory failure requiring mechanical ventilation. PLAN: The patient is not weanable at this time. He is at extreme risk for from the COVID given lack of improvement and even worsening of x-ray along with development of bilateral pneumothoraces during the course of this hospitalization. He is on empiric antibiotics, which will be stopped at day 7. So far, the only thing that has come from his cultures with Staph epidermidis, which is likely a contaminant. He is on anticoagulation therapeutically. The decadron does not seem to be working very well, so I will change him over to hydrocortisone and see if that helps. Job ID: [id number]
[2020-06-25] MEDS: Hydrocortisone Sod Succ/PF 100 mg/2 ml Vial IVP SCH ×3 (10:27→19:54)
[2020-06-25 15:22] LABS: Vancomycin, Trough 20.6 ug/mL
[2020-06-25 17:04] LABS: ALT (SGPT) 32 U/L (8-55); AST (SGOT) 17 U/L (5-34); Albumin 2.4 g/dL (3.5-5.0); Alkaline Phosphatase 89 U/L (40-110); Anion Gap 11 mmol/L (10-20); BUN (Urea Nitrogen) 14 mg/dL (8.9-20.6); Bilirubin, Total 0.5 mg/dL (0.2-1.2); Calc. Creatinine Clearance 200 mL/min (70-130); Calcium 8.1 mg/dL (7.8-10.44); Carbon Dioxide 30 mmol/L (22-29); Chloride 101 mmol/L (98-107); Globulin 3.4 g/dL (2.4-3.5); Glucose 177 mg/dL (70-105); Potassium 4.1 mmol/L (3.5-5.1); Protein, Total 5.8 g/dL (6.0-8.3); Sodium 138 mmol/L (136-145)
[2020-06-25] MEDS: Vancomycin 1.5 GRAM/300 ML BAG 1.5 GM in Premix Bag 1 BAG IVPB SCH (17:26)
[2020-06-25] MEDS: Cholecalciferol 1,000 UNITS (25 MCG) TAB PO SCH (19:52)
[2020-06-26] MEDS: Piperacillin/Tazobactam 3.375 GM in Sodium Chloride 0.9% 100 ML IVPB SCH ×4 (00:18→17:31)
[2020-06-26] MEDS: Rocuronium Bromide 10 MG/ML (10ML VIAL) IVP PRN ×7 (00:18→21:21)
[2020-06-26] MEDS: Propofol 1,000 MG/100 ML VIAL IV PRN ×5 (01:16→20:46)
[2020-06-26] MEDS: Vancomycin 1.5 GRAM/300 ML BAG 1.5 GM in Premix Bag 1 BAG IVPB SCH ×3 (01:41→17:31)
[2020-06-26] MEDS ORDERED: Fentanyl CADD 100 ML ONE (03:01)
[2020-06-26] MEDS: Hydrocortisone Sod Succ/PF 100 mg/2 ml Vial IVP SCH ×4 (03:06→19:26)
[2020-06-26] MEDS: Fentanyl CADD 100 ML IV SCH ×2 (03:06→15:49)
[2020-06-26 05:31] LABS: ALT (SGPT) 30 U/L (8-55); AST (SGOT) 15 U/L (5-34); Albumin 2.5 g/dL (3.5-5.0); Alkaline Phosphatase 87 U/L (40-110); Anion Gap 12 mmol/L (10-20); BUN (Urea Nitrogen) 15 mg/dL (8.9-20.6); Bilirubin, Total 0.4 mg/dL (0.2-1.2); Calc. Creatinine Clearance 200 mL/min (70-130); Calcium 8.3 mg/dL (7.8-10.44); Carbon Dioxide 31 mmol/L (22-29); Chloride 101 mmol/L (98-107); Globulin 3.6 g/dL (2.4-3.5); Glucose 133 mg/dL (70-105); Potassium 3.8 mmol/L (3.5-5.1); Protein, Total 6.1 g/dL (6.0-8.3); Sodium 140 mmol/L (136-145)
[2020-06-26 05:52] LABS: Hemoglobin 10.9 g/dL (14.0-18.0); Mean Corpuscular HGB CONC 32.4 g/dL (32.0-36.0); Mean Corpuscular Hemoglobin 29.7 pg (27.0-31.0); Mean Corpuscular Volume 91.6 fL (78.0-98.0); Mean Platelet Volume 8.7 fL (7.4-10.4); Platelet Count 228 thou/uL (130-400); RBC Distribution Width 12.4 % (11.5-14.5); Red Blood Cell (RBC) Count 3.66 mill/uL (4.70-6.10); White Blood Cell (WBC) Count 8.3 thou/uL (4.8-10.8)
[2020-06-26 06:08] LABS: Band 3 % (5-11); Lymphocytes 6 % (21-51); MDiff Complete? YES; Neutrophil 91 % (42-75)
[2020-06-26] MEDS: Mometasone 200 MCG/Formoterol 5 MCG 120 PUFF INHALER INH SCH ×2 (07:22→19:09)
--- NOTE | 2020-06-26 08:08 | RAD ---
EXAM: CHEST ONE VIEW HISTORY: Pneumonia. Follow-up evaluation. COMPARISON: 06/25/2020 FINDINGS: Endotracheal tube, nasogastric tube, and bilateral thoracostomy tubes remain in place and unchanged i n position. Diffuse increased interstitial and alveolar opacities are seen throughout the lungs bilaterally. The opacities appear mildly improved from prior exam, but this is likely due to better d epth of inspiration on current study. Previously seen subcutaneous emphysema has decreased. No other interval change. IMPRESSION: 1. Diffuse interstitial and alveolar opacities throughout the lungs bilaterally, and these radiograph ic findings can be seen with Covid pneumonia. 2. Lines and tubes stable in position including bilateral thoracostomy tubes. No pneumothorax is appr eciated on this exam.
--- NOTE | 2020-06-26 08:29 | PDOC.FM ---
- Subjective Subjective: Sedated. Episodes of desaturation overnight, requiring paralytics and increased vent settings. No BM. No other acute events. - Objective MAR Reviewed: Yes Vital Signs & Weight: Vital Signs (12 hours) Pulse Resp BP Pulse Ox 06/26/20 08:00 22 H 06/26/20 07:55 100 06/26/20 07:19 68 148/82 H 06/26/20 06:00 21 H 06/26/20 04:00 22 H 06/26/20 02:00 20 06/26/20 00:00 20 06/25/20 22:00 22 H Weight Admit Weight 94.347 kg Weight 84.5 kg Most Recent Monitor Data Heart Rate from ECG 67 NIBP 149/79 NIBP BP-Mean 102 Respiration from ECG 27 SpO2 100 I&O: 06/25/20 06/26/20 06/27/20 06:59 06:59 06:59 Intake Total 2236 2410 Output Total 3380 2540 125 Balance -1144 -130 -125 Result Diagrams: 06/26/20 04:10 06/26/20 04:10 Phys Exam - Physical Examination sedated HEENT: moist MMs ETT and OG in place Neck: supple course rhonchi throughout Cardiovascular: RRR Gastrointestinal: soft hypoactive bowel sounds Musculoskeletal: no edema Dx/Plan (1) Acute respiratory failure with hypoxia Code(s): J96.01 - ACUTE RESPIRATORY FAILURE WITH HYPOXIA Status: Acute (2) COVID-19 Code(s): U07.1 - COVID-19 Status: Acute (3) Hyponatremia Code(s): E87.1 - HYPO-OSMOLALITY AND HYPONATREMIA Status: Acute (4) Transaminitis Code(s): R74.01 - ELEVATION OF LEVELS OF LIVER TRANSAMINASE LEVELS Status: Acute - Plan Plan: 45 y/o male with an unremarkable PMH who presented to the ER for evaluation of SOB. #AHRF 2/2 COVID PNA, possible Bacterial Co-Infection -Symptoms reportedly began on 06/07 -CXR: Suspicion for multi-lobar pneumonia - worsening diffuse infiltrates -CTA: No evidence of PE, COVID-19 pneumonia -Patient is currently intubated and sedated, s/p Remdesivir -Procal: 1.11 > 0.26 -s/p Ceftriaxone for 7D (Completed on 06/18) -Dexamethasone 6 mg IV daily -> changed to hydrocortisone on 06/25 -D-Dimer: 1 > 6.16 - currently on Th. Lovenox -Vit C, Vit D, Zinc -Patient developed fever and increased FiO2 requirement on Bi-Level ventilation on 06/19 - no fevers since -Bilevel: 34/15, FiO2 80% -BCx: MRSA sensitive to vanc, doxy, and levaquin, continue abx until 07/02 (total 7 days) -UCx: NGTD -Pulm: Consulted, recs appreciated - currently receiving Vanc and Zosyn. Will supplement with empiric antifungal therapy -CXR on 06/22 demonstrated possibly Hydropneumothorax - s/p chest tube placement by Pulm draining serosanguinous fluid. CXR on 06/24 with right apical pneumo. Chest tube placed. 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 Lovenox Lines/Tube: L Chest tube (06/22), R Chest tube (06/24), Kina, Dispo: Patient is currently in critical condition and admitted to the ICU for ongoing management of AHRF 2/2 COVID-19 Pneumonia with possible secondary bacterial infection. Continue steroids and abx per above and pulm recs. Pulm consulted - recs appreciated with continued proning as tolerated. Increased vent settings. Extremely poor prognosis. Consider removing precautions on 06/28 (21 days since sx onset). Addendum - Attending - Attending Attestation Date/Time: 06/26/20 1118 I personally evaluated the patient and discussed the management with Dr. Winters I agree with the History, Examination, Assessment and Plan documented above with any addition or exceptions noted below - Intubated/sedated. Afebrile VSS A/P: 1) Acute hypoxic resp failure secondary to COVID pneumonia - not weanble at this time. Continue vent support. Plan to d/c abx at 7 days. 2) B/l pneumothoraces - no air leak; continue chest tube.
[2020-06-26] MEDS: Zinc Sulfate 220 MG CAP PO SCH (08:43)
[2020-06-26] MEDS: Fluconazole 100 MG TAB PER TUBE SCH (08:43)
[2020-06-26] MEDS: Ascorbic Acid 500 mg Chewable Tablet PO SCH (08:44)
[2020-06-26] MEDS: Senokot S 8.6-50 MG TAB PER TUBE SCH ×2 (08:44→19:25)
[2020-06-26] MEDS: Pantoprazole 40 MG GRANULES PACKET PER TUBE SCH (08:44)
[2020-06-26] MEDS: Polyethylene Glycol 3350 17 GM Packet PER TUBE SCH ×2 (08:45→08:59)
[2020-06-26] MEDS: Enoxaparin Sodium 80 MG/0.8 ML SYRINGE SC SCH ×2 (08:56→19:25)
--- NOTE | 2020-06-26 09:08 | PRG ---
DATE OF SERVICE: 06/26/2020 35 minutes of critical care time. SUBJECTIVE: The patient remains intubated on mechanical ventilation without any acute change overnight. OBJECTIVE: VITAL SIGNS: Temperature 98.4, pulse 67, blood pressure 149/79. 24-hour intake 2410, output 2540. HEENT: Unremarkable. NECK: No JVD. LUNGS: Inspiratory crackles bilaterally. CARDIAC: S1 and S2. Regular. ABDOMEN: Soft. EXTREMITIES: Edematous. His chest tubes do not show air leak on either side. LABORATORY DATA: White blood cell count 8.3, hematocrit 33.5, and platelet count 228. Sodium 140, potassium 3.8, chloride 101, CO2 of 31, BUN 15, creatinine 0.5, and glucose 133. Chest x-ray shows stable pulmonary infiltrates, bilateral chest tubes, no evidence of pneumothorax. ASSESSMENT: 1. COVID-19 pneumonia. 2. Acute hypoxic respiratory failure requiring mechanical ventilation. 3. Bilateral pneumothoraces. PLAN: 1. I have decreased his FiO2 and high PEEP. 2. The patient is continuing IV antibiotics for Staph epidermidis found in blood. 3. Continue anticoagulation. 4. Continue steroids. 5. Continue enteral tube feeds. Job ID: [id number]
[2020-06-26 17:53] LABS: Vancomycin, Trough 11.1 ug/mL
[2020-06-26] MEDS: Cholecalciferol 1,000 UNITS (25 MCG) TAB PO SCH (19:25)
[2020-06-27] MEDS: Piperacillin/Tazobactam 3.375 GM in Sodium Chloride 0.9% 100 ML IVPB SCH ×4 (00:39→18:20)
[2020-06-27] MEDS: Propofol 1,000 MG/100 ML VIAL IV PRN ×5 (00:40→20:13)
[2020-06-27] MEDS: Vancomycin HCl 1.75 GM in Sodium Chloride 0.9% 500 ML IVPB SCH ×3 (02:46→18:20)
[2020-06-27] MEDS: Hydrocortisone Sod Succ/PF 100 mg/2 ml Vial IVP SCH ×4 (02:47→20:14)
[2020-06-27] MEDS ORDERED: Fentanyl CADD 100 ML ONE ×2 (05:21→18:17)
[2020-06-27] MEDS: Fentanyl CADD 100 ML IV SCH ×2 (05:23→18:20)
--- NOTE | 2020-06-27 06:37 | PDOC.FM ---
- Subjective Subjective: Intubated and sedated. No acute events overnight. - Objective MAR Reviewed: Yes Vital Signs & Weight: Vital Signs (12 hours) Pulse Resp BP Pulse Ox 06/27/20 06:00 22 H 06/27/20 04:00 23 H 06/27/20 02:29 62 127/71 06/27/20 02:00 23 H 06/27/20 00:00 22 H 06/26/20 22:29 85 142/68 H 06/26/20 22:00 26 H 06/26/20 20:00 23 H 94 L Weight Admit Weight 94.347 kg Weight 84.8 kg Most Recent Monitor Data Heart Rate from ECG 65 NIBP 148/78 NIBP BP-Mean 101 Respiration from ECG 20 SpO2 100 I&O: 06/25/20 06/26/20 06/27/20 06:59 06:59 06:59 Intake Total 2236 2410 1827 Output Total 3380 2540 2040 Balance -1144 -130 -213 Result Diagrams: 06/26/20 04:10 06/26/20 04:10 Phys Exam - Physical Examination Intubated and sedated ETT and OG in place Neck: supple course rhonchi throughout Cardiovascular: RRR, no significant murmur Gastrointestinal: soft, no distention, positive bowel sounds Musculoskeletal: no edema Dx/Plan (1) Acute respiratory failure with hypoxia Code(s): J96.01 - ACUTE RESPIRATORY FAILURE WITH HYPOXIA Status: Acute (2) COVID-19 Code(s): U07.1 - COVID-19 Status: Acute (3) Hyponatremia Code(s): E87.1 - HYPO-OSMOLALITY AND HYPONATREMIA Status: Acute (4) Transaminitis Code(s): R74.01 - ELEVATION OF LEVELS OF LIVER TRANSAMINASE LEVELS Status: Acute - Plan Plan: 45 y/o male with an unremarkable PMH who presented to the ER for evaluation of SOB. #AHRF 2/2 COVID PNA, possible Bacterial Co-Infection -Symptoms reportedly began on 06/07 -CXR: Suspicion for multi-lobar pneumonia - worsening diffuse infiltrates -CTA: No evidence of PE, COVID-19 pneumonia -Patient is currently intubated and sedated, s/p Remdesivir -Procal: 1.11 > 0.26 -s/p Ceftriaxone for 7D (Completed on 06/18) -Dexamethasone 6 mg IV daily -> changed to hydrocortisone on 06/25 -D-Dimer: 1 > 6.16 - currently on Th. Lovenox -Vit C, Vit D, Zinc -Patient developed fever and increased FiO2 requirement on Bi-Level ventilation on 06/19 - no fevers since -Bilevel: 34/15, FiO2 80% -BCx: MRSA sensitive to vanc, doxy, and levaquin, continue abx until 06/27 (total 7 days) -UCx: NGTD -Pulm: Consulted, recs appreciated - currently receiving Vanc and Zosyn. Will supplement with empiric antifungal therapy -CXR on 06/22 demonstrated possibly Hydropneumothorax - s/p left chest tube placement by Pulm draining serosanguinous fluid. CXR on 06/24 with right apical pneumo. Right Chest tube placed. 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 Lovenox Lines/Tube: L Chest tube (06/22), R Chest tube (06/24), [place], Dispo: Patient is currently in critical condition and admitted to the ICU for ongoing management of AHRF 2/2 COVID-19 Pneumonia with possible secondary bacterial infection. Continue steroids and abx per above and pulm recs. Pulm consulted - recs appreciated with continued proning as tolerated. Increased vent settings. Extremely poor prognosis. Consider removing precautions on 06/28 (21 days since sx onset). D/C antibiotics after full course. Addendum - Attending - Attending Attestation Date/Time: 06/27/20 1130 I personally evaluated the patient and discussed the management with Dr. Winters I agree with the History, Examination, Assessment and Plan documented above with any addition or exceptions noted below - Intubated and sedated. Afebrile VSS. A/P: 1) Acute hypoxic resp failure secondary to COVID pneumonia - not weanable at this time. Continue current vent support. 2) B/L pneumothoraces - continue chest tubes.
--- NOTE | 2020-06-27 08:22 | RAD ---
EXAM: CHEST ONE VIEW HISTORY: Pneumonia. Follow-up evaluation. COMPARISON: 06/26/2020 FINDINGS: Endotracheal tube, nasogastric tube, and bilateral thoracostomy tubes remain in place. Superior aspec t of each lung apex is excluded from view. There are bilateral increased interstitial and parenchymal airspace opacities seen diffusely throughout the lungs not significantly changed when co mpared to prior exam. No obvious pneumothorax is seen on this exam. Chest is overall stable given differences in technique. IMPRESSION: Stable chest.
[2020-06-27] MEDS: Ascorbic Acid 500 mg Chewable Tablet PO SCH (08:32)
[2020-06-27] MEDS: Enoxaparin Sodium 80 MG/0.8 ML SYRINGE SC SCH ×2 (08:32→20:14)
[2020-06-27] MEDS: Zinc Sulfate 220 MG CAP PO SCH (08:34)
[2020-06-27] MEDS: Pantoprazole 40 MG GRANULES PACKET PER TUBE SCH (08:34)
[2020-06-27] MEDS: Senokot S 8.6-50 MG TAB PER TUBE SCH ×2 (08:34→20:14)
[2020-06-27] MEDS: Rocuronium Bromide 10 MG/ML (10ML VIAL) IVP PRN ×9 (08:36→20:14)
[2020-06-27] MEDS: Fluconazole 100 MG TAB PER TUBE SCH (08:36)
[2020-06-27] MEDS: Mometasone 200 MCG/Formoterol 5 MCG 120 PUFF INHALER INH SCH ×2 (08:44→19:01)
--- NOTE | 2020-06-27 11:28 | PRG ---
DATE OF SERVICE: 06/27/2020 35 minutes critical care time. SUBJECTIVE: The patient remains intubated on mechanical ventilation. There has been no acute change overnight. OBJECTIVE: VITAL SIGNS: Temperature is 99.7, pulse 65, blood pressure 140/78; O2 saturation running about 100%, base requiring 90% oxygen for that. His current ventilator settings are bilevel rate 20, high pressure 32, low pressure 15, inspiratory time 0.9 seconds with FiO2 of 90%. HEENT: Unremarkable. NECK: No JVD. LUNGS: Inspiratory crackles. CARDIAC: S1 and S2. Regular. ABDOMEN: Soft. EXTREMITIES: No edema. He has bilateral chest tubes. No evidence of air leak in either pleural vac. He has dense infiltrates bilaterally. LABORATORY DATA: I do not see any labs that were done today, but they ordered for tomorrow. ASSESSMENT: 1. COVID-19 pneumonia with progressive worsening of oxygenation despite therapy with steroids, anticoagulants, antibiotics, etc. 2. Bilateral pneumothoraces. PLAN: At this point, I am not optimistic that the patient will survive. We are continuing current therapy. Apparently, there is no family to communicate with [place]. Job ID: [id number]
[2020-06-27] MEDS: Cholecalciferol 1,000 UNITS (25 MCG) TAB PO SCH (20:14)
[2020-06-28] MEDS: Propofol 1,000 MG/100 ML VIAL IV PRN ×6 (00:47→21:29)
[2020-06-28] MEDS: Piperacillin/Tazobactam 3.375 GM in Sodium Chloride 0.9% 100 ML IVPB SCH ×5 (00:48→22:47)
[2020-06-28] MEDS: Rocuronium Bromide 10 MG/ML (10ML VIAL) IVP PRN ×15 (00:49→22:47)
[2020-06-28 01:46] LABS: Vancomycin, Trough 19.1 ug/mL
[2020-06-28] MEDS: Vancomycin HCl 1.75 GM in Sodium Chloride 0.9% 500 ML IVPB SCH ×3 (02:45→18:39)
[2020-06-28] MEDS: Hydrocortisone Sod Succ/PF 100 mg/2 ml Vial IVP SCH ×4 (03:36→19:25)
[2020-06-28 04:03] LABS: #Eosinphils 0.1 thou/uL (0.0-0.7); #Lymphocytes 0.3 thou/uL (1.20-3.40); #Monocytes 0.2 thou/uL (0.11-0.59); #Neutrophils 7.3 thou/uL (1.40-6.50); %Eosinophils 0.7 % (0.0-10.0); %Lymphocytes 3.4 % (21.0-51.0); %Monocytes 2.8 % (0.0-10.0); %Neutrophils 93.2 % (42.0-75.0); Hemoglobin 10.8 g/dL (14.0-18.0); Mean Corpuscular HGB CONC 32.6 g/dL (32.0-36.0); Mean Corpuscular Hemoglobin 30.5 pg (27.0-31.0); Mean Corpuscular Volume 93.6 fL (78.0-98.0); Mean Platelet Volume 8.2 fL (7.4-10.4); Platelet Count 198 thou/uL (130-400); RBC Distribution Width 12.9 % (11.5-14.5); Red Blood Cell (RBC) Count 3.55 mill/uL (4.70-6.10); White Blood Cell (WBC) Count 7.8 thou/uL (4.8-10.8)
[2020-06-28 04:24] LABS: ALT (SGPT) 28 U/L (8-55); AST (SGOT) 15 U/L (5-34); Albumin 2.5 g/dL (3.5-5.0); Alkaline Phosphatase 75 U/L (40-110); Anion Gap 8 mmol/L (10-20); BUN (Urea Nitrogen) 15 mg/dL (8.9-20.6); Bilirubin, Total 0.4 mg/dL (0.2-1.2); Calc. Creatinine Clearance 207 mL/min (70-130); Carbon Dioxide 35 mmol/L (22-29); Chloride 102 mmol/L (98-107); Globulin 3.1 g/dL (2.4-3.5); Glucose 162 mg/dL (70-105); Potassium 3.4 mmol/L (3.5-5.1); Protein, Total 5.6 g/dL (6.0-8.3); Sodium 142 mmol/L (136-145)
[2020-06-28] MEDS ORDERED: Potassium Chloride 20 MEQ TAB PO SCH (06:30)
[2020-06-28] MEDS ORDERED: Potassium Chloride 20 MEQ in Premix Bag 1 BAG IVPB SCH (06:30)
[2020-06-28] MEDS: Mometasone 200 MCG/Formoterol 5 MCG 120 PUFF INHALER INH SCH ×2 (06:47→18:54)
--- NOTE | 2020-06-28 06:48 | PDOC.FM ---
- Subjective Subjective: No acute events overnight. Sedated and paralyzed. Requires multiple doses of paralytic to remain comfortable and not desat with high RR. No acute changes. - Objective MAR Reviewed: Yes Vital Signs & Weight: Vital Signs (12 hours) Pulse Resp BP Pulse Ox 06/28/20 06:00 20 06/28/20 02:17 67 116/67 06/28/20 02:00 20 06/28/20 00:00 20 06/27/20 22:24 58 L 06/27/20 22:00 24 H 06/27/20 20:00 20 93 L 06/27/20 19:09 86 Weight Admit Weight 94.347 kg Weight 88 kg Most Recent Monitor Data Heart Rate from ECG 91 NIBP 147/85 NIBP BP-Mean 105 Respiration from ECG 19 SpO2 96 I&O: 06/26/20 06/27/20 06/28/20 06:59 06:59 06:59 Intake Total 2410 1827 2536.9 Output Total 2540 2040 1745 Balance -130 -213 791.9 Result Diagrams: 06/28/20 03:39 06/28/20 03:30 Phys Exam - Physical Examination Sedated and intubated HEENT: moist MMs ETT and OG in place Neck: supple Course rhonchi throughout Cardiovascular: RRR, no significant murmur, no rub Gastrointestinal: soft, no distention, positive bowel sounds Dx/Plan (1) Acute respiratory failure with hypoxia Code(s): J96.01 - ACUTE RESPIRATORY FAILURE WITH HYPOXIA Status: Acute (2) COVID-19 Code(s): U07.1 - COVID-19 Status: Acute (3) Hyponatremia Code(s): E87.1 - HYPO-OSMOLALITY AND HYPONATREMIA Status: Acute (4) Transaminitis Code(s): R74.01 - ELEVATION OF LEVELS OF LIVER TRANSAMINASE LEVELS Status: Acute - Plan Plan: 45 y/o male with an unremarkable PMH who presented to the ER for evaluation of SOB. #AHRF 2/2 COVID PNA, possible Bacterial Co-Infection -Symptoms reportedly began on 06/07 -CXR: Suspicion for multi-lobar pneumonia - worsening diffuse infiltrates -CTA: No evidence of PE, COVID-19 pneumonia -Patient is currently intubated and sedated, s/p Remdesivir -Procal: 1.11 > 0.26 -s/p Ceftriaxone for 7D (Completed on 06/18) -Dexamethasone 6 mg IV daily -> changed to hydrocortisone on 06/25 -D-Dimer: 1 > 6.16 - currently on Th. Lovenox -Vit C, Vit D, Zinc -Patient developed fever and increased FiO2 requirement on Bi-Level ventilation on 06/19 - no fevers since -Bilevel: 32/15, FiO2 80% -BCx: MRSA sensitive to vanc, doxy, and levaquin, continue abx until 06/27 (total 7 days) - d/c abx today -UCx: NGTD -Pulm: Consulted, recs appreciated - currently receiving Vanc and Zosyn. Will supplement with empiric antifungal therapy -CXR on 06/22 demonstrated possibly Hydropneumothorax - s/p left chest tube placement by Pulm draining serosanguinous fluid. CXR on 06/24 with right apical pneumo. Right Chest tube placed. 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 Lovenox Lines/Tube: L Chest tube (06/22), R Chest tube (06/24), Cast[place], Dispo: Patient is currently in critical condition and admitted to the ICU for ongoing management of AHRF 2/2 COVID-19 Pneumonia with possible secondary bacterial infection. Continue steroids and abx per above and pulm recs. Pulm consulted - recs appreciated with continued proning as tolerated. Increased vent settings. Extremely poor prognosis. Consider removing precautions on 06/28 (21 days since sx onset) or 07/03 (21 days since positive test). D/C antibiotics after full course. Addendum - Attending - Attending Attestation Date/Time: 06/28/20 1251 I personally evaluated the patient and discussed the management with Dr. Winters I agree with the History, Examination, Assessment and Plan documented above with any addition or exceptions noted below-Patient intubated/sedated. Afebrile VSS. A/P: 1) Acute hypoxic resp failure secondary to COVID pneumonia - still requiring paralytics and sedation. Continue vent support. 2) b/l pneumothoraces- continue chest tubes. 3) Anemia- stable. .
--- NOTE | 2020-06-28 08:05 | RAD ---
Portable frontal chest radiograph: 06/28/2020 COMPARISON: 06/27/2020 HISTORY: Pneumonia FINDINGS: Stable bilateral chest tubes. Stable endotracheal tube and nasogastric tube. No discrete pn eumothorax. Extensive interstitial and alveolar/groundglass opacity bilaterally with a perihilar and bibasilar pr edominance, unchanged. IMPRESSION: Stable appearance of the chest as detailed above.
[2020-06-28] MEDS ORDERED: Fentanyl CADD 100 ML ONE ×2 (08:23→22:07)
[2020-06-28] MEDS: Fluconazole 100 MG TAB PER TUBE SCH (08:28)
[2020-06-28] MEDS: Zinc Sulfate 220 MG CAP PO SCH (08:29)
[2020-06-28] MEDS: Senokot S 8.6-50 MG TAB PER TUBE SCH ×2 (08:29→19:24)
[2020-06-28] MEDS: Enoxaparin Sodium 80 MG/0.8 ML SYRINGE SC SCH ×2 (08:29→19:24)
[2020-06-28] MEDS: Ascorbic Acid 500 mg Chewable Tablet PO SCH (08:29)
[2020-06-28] MEDS: Polyethylene Glycol 3350 17 GM Packet PER TUBE SCH (08:30)
[2020-06-28] MEDS: Pantoprazole 40 MG GRANULES PACKET PER TUBE SCH (08:33)
--- NOTE | 2020-06-28 18:43 | PRG ---
DATE OF SERVICE: 06/28/2020 SUBJECTIVE: Mr. Vincent remains in the ICU, mechanically ventilated. OBJECTIVE: VITAL SIGNS: Heart rates in the 60s, blood pressure 116/67, respiratory rates in the 20s. LUNGS: Remarkable for coarse equal breath sounds. HEART: Regular rhythm. ABDOMEN: Soft. EXTREMITIES: Without edema. He has bilateral chest tubes. LABORATORY DATA: White count 7.8, hemoglobin 10.8, platelets 198. Sodium 142, potassium 3.4, chloride 102, bicarb 35, BUN 15, creatinine 0.54. Chest x-ray shows bilateral chest tubes and no change in the pulmonary infiltrates. IMPRESSION: 1. Respiratory failure associated with COVID pneumonia. 2. Spontaneous pneumothorax bilaterally, now with bilateral chest tubes. PLAN: Continue support. He is 17 days into this and he will likely be out of isolation this weekend. Job ID: [id number]
[2020-06-28] MEDS: Cholecalciferol 1,000 UNITS (25 MCG) TAB PO SCH (19:24)
[2020-06-29] MEDS: Rocuronium Bromide 10 MG/ML (10ML VIAL) IVP PRN ×11 (01:00→18:09)
[2020-06-29 01:20] LABS: Vancomycin, Trough 14.5 ug/mL
[2020-06-29] MEDS: Propofol 1,000 MG/100 ML VIAL IV PRN ×6 (01:30→22:15)
[2020-06-29] MEDS: Vancomycin HCl 1.75 GM in Sodium Chloride 0.9% 500 ML IVPB SCH ×3 (01:50→18:09)
[2020-06-29] MEDS: Hydrocortisone Sod Succ/PF 100 mg/2 ml Vial IVP SCH ×4 (02:06→20:42)
[2020-06-29] MEDS: Piperacillin/Tazobactam 3.375 GM in Sodium Chloride 0.9% 100 ML IVPB SCH ×4 (05:07→23:19)
--- NOTE | 2020-06-29 05:40 | PDOC.FM ---
- Subjective Subjective: Pt is intubated and sedated. Requiring paralytics. - Objective Vital Signs & Weight: Vital Signs (12 hours) Temp Pulse Resp Pulse Ox 06/29/20 04:00 24 H 06/29/20 03:25 71 06/29/20 02:00 20 06/29/20 00:33 69 06/29/20 00:00 20 06/28/20 22:00 87 20 06/28/20 20:00 29 H 92 L 06/28/20 19:00 98.8 F 06/28/20 18:50 82 06/28/20 18:00 23 H Weight Admit Weight 94.347 kg Weight 87.8 kg Most Recent Monitor Data Heart Rate from ECG 64 NIBP 140/73 NIBP BP-Mean 95 Respiration from ECG 22 SpO2 93 I&O: 06/27/20 06/28/20 06/29/20 06:59 06:59 06:59 Intake Total 1827 2536.9 3079.8 Output Total 2040 1745 3390 Balance -213 791.9 -310.2 Result Diagrams: 06/29/20 07:58 06/29/20 07:58 Phys Exam - Physical Examination intubated HEENT: sclera anicteric Neck: no JVD coarse breath sounds on vent Cardiovascular: RRR, no significant murmur Gastrointestinal: soft, no distention Musculoskeletal: no edema, pulses present Dx/Plan - Plan Plan: 45 y/o male with an unremarkable PMH who presented to the ER for evaluation of SOB. #AHRF 2/2 COVID PNA, possible Bacterial Co-Infection -Symptoms reportedly began on 06/07 -CXR: Suspicion for multi-lobar pneumonia - worsening diffuse infiltrates -CTA: No evidence of PE, COVID-19 pneumonia -Patient is currently intubated and sedated, s/p Remdesivir -Procal: 1.11 > 0.26 -s/p Ceftriaxone for 7D (Completed on 06/18) -Dexamethasone 6 mg IV daily -> changed to hydrocortisone on 06/25 -D-Dimer: 1 > 6.16 - currently on Th. Lovenox -Vit C, Vit D, Zinc -Patient developed fever and increased FiO2 requirement on Bi-Level ventilation on 06/19 - no fevers since -Bilevel: 32/15, FiO2 70% -UCx: NGTD -Pulm: Consulted, recs appreciated - currently receiving Vanc and Zosyn. Will supplement with empiric antifungal therapy -CXR on 06/22 demonstrated possibly Hydropneumothorax - s/p left chest tube placement by Pulm draining serosanguinous fluid. CXR on 06/24 with right apical pneumo. Right Chest tube placed. 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 Lovenox Lines/Tube: L Chest tube (06/22), R Chest tube (06/24), Castanon Bi-level Respiratory Support - 32/, FiO2 70% Drips: propofol, midazolam ABX/Antifungal: vanc, zosyn, diflucan Dispo: Patient is currently in critical condition and admitted to the ICU for ongoing management of AHRF 2/2 COVID-19 Pneumonia with possible secondary bact erial infection. Continue steroids and abx per above and pulm recs. Pulm consulted - recs appreciated with continued proning as tolerated. Increased vent settings. Extremely poor prognosis. Consider removing precautions on 06/28 (21 days since sx onset) or 07/03 (21 days since positive test). D/C antibiotics after full course. Addendum - Attending - Attending Attestation Date/Time: 06/29/20 9974 I personally evaluated the patient and discussed the management with Dr. Haddad. I agree with the History, Examination, Assessment and Plan documented above with any addition or exceptions noted below. Guarded prognosis. Wean vent if able. Still with >[address] No repeat BCx but we have had many +s. epi.
[2020-06-29] MEDS: Mometasone 200 MCG/Formoterol 5 MCG 120 PUFF INHALER INH SCH ×2 (07:04→20:12)
[2020-06-29 08:21] LABS: #Eosinphils 0.1 thou/uL (0.0-0.7); #Lymphocytes 0.3 thou/uL (1.20-3.40); #Monocytes 0.2 thou/uL (0.11-0.59); #Neutrophils 7.8 thou/uL (1.40-6.50); %Eosinophils 0.7 % (0.0-10.0); %Lymphocytes 3.3 % (21.0-51.0); %Monocytes 2.3 % (0.0-10.0); %Neutrophils 93.7 % (42.0-75.0); Hemoglobin 10.5 g/dL (14.0-18.0); Mean Corpuscular HGB CONC 31.9 g/dL (32.0-36.0); Mean Corpuscular Hemoglobin 29.9 pg (27.0-31.0); Mean Corpuscular Volume 93.8 fL (78.0-98.0); Mean Platelet Volume 8.5 fL (7.4-10.4); Platelet Count 195 thou/uL (130-400); RBC Distribution Width 13.1 % (11.5-14.5); Red Blood Cell (RBC) Count 3.53 mill/uL (4.70-6.10); White Blood Cell (WBC) Count 8.3 thou/uL (4.8-10.8)
[2020-06-29 08:38] LABS: ALT (SGPT) 27 U/L (8-55); AST (SGOT) 15 U/L (5-34); Albumin 2.4 g/dL (3.5-5.0); Alkaline Phosphatase 73 U/L (40-110); Anion Gap 11 mmol/L (10-20); BUN (Urea Nitrogen) 14 mg/dL (8.9-20.6); Bilirubin, Total 0.4 mg/dL (0.2-1.2); Calc. Creatinine Clearance 290 mL/min (70-130); Calcium 7.9 mg/dL (7.8-10.44); Carbon Dioxide 35 mmol/L (22-29); Chloride 102 mmol/L (98-107); Globulin 2.9 g/dL (2.4-3.5); Glucose 137 mg/dL (70-105); Potassium 3.6 mmol/L (3.5-5.1); Protein, Total 5.3 g/dL (6.0-8.3); Sodium 144 mmol/L (136-145)
--- NOTE | 2020-06-29 08:39 | RAD ---
Portable frontal chest radiograph: 06/29/2020 COMPARISON: 06/28/2020 HISTORY: Pneumonia FINDINGS: The endotracheal tube has been retracted slightly since the prior examination, now projecti ng approximately 2 cm above the level of the clavicular heads. The nasogastric tube is in a stable position. There is a stable left-sided chest tube with no left pneumothorax appreciated. Stable right chest tube noted with no discrete right-sided pneumothorax. Extensive interstitial and groundglass opacity noted bilaterally. Pulmonary parenchymal opacities are stable. IMPRESSION: Interval retraction of the endotracheal tube as detailed above. Otherwise no interval blanche nge.
[2020-06-29] MEDS: Ascorbic Acid 500 mg Chewable Tablet PO SCH (08:57)
[2020-06-29] MEDS: Zinc Sulfate 220 MG CAP PO SCH (08:58)
[2020-06-29] MEDS: Pantoprazole 40 MG GRANULES PACKET PER TUBE SCH (08:58)
[2020-06-29] MEDS: Enoxaparin Sodium 80 MG/0.8 ML SYRINGE SC SCH ×2 (08:58→20:40)
[2020-06-29] MEDS: Fluconazole 100 MG TAB PER TUBE SCH (08:58)
[2020-06-29] MEDS: Senokot S 8.6-50 MG TAB PER TUBE SCH ×2 (09:55→20:41)
[2020-06-29] MEDS: Polyethylene Glycol 3350 17 GM Packet PER TUBE SCH (09:56)
[2020-06-29] MEDS ORDERED: Fentanyl CADD 100 ML ONE ×2 (11:12→22:12)
--- NOTE | 2020-06-29 19:31 | PRG ---
DATE OF SERVICE: 06/29/2020 SUBJECTIVE: Sukhdev Vincent remains mechanically ventilated. OBJECTIVE: VITAL SIGNS: Heart rate is in the 70s. He is afebrile. Respiratory rate is in the 20s. Oximetry is in the low 90s. FiO2 is 70%. LUNGS: Remarkable for coarse equal breath sounds. HEART: Regular rhythm. ABDOMEN: Soft. EXTREMITIES: Without edema. LABORATORY DATA: White count 8.3, hemoglobin 10.5, platelets 195. Sodium 144, potassium 3.6, chloride 102, bicarb 35, BUN 14, creatinine is less than 0.4. Intake and outputs -277. IMPRESSION: Respiratory failure secondary to COVID pneumonia. Chest radiograph is unchanged. Chest tubes are in place. He is admitted on , so 18 days into his hospitalization. He had symptoms since the , so he can probably be taken out of isolation tomorrow. He will end up needing a tracheostomy as soon as we can get one scheduled, but he still has extremely poor lung compliance and high FiO2 requirement, so it is not feasible at this time. Job ID: [id number]
[2020-06-29] MEDS: Cholecalciferol 1,000 UNITS (25 MCG) TAB PO SCH (20:41)
[2020-06-30] MEDS: Vancomycin HCl 1.75 GM in Sodium Chloride 0.9% 500 ML IVPB SCH ×3 (01:52→19:51)
[2020-06-30] MEDS: Hydrocortisone Sod Succ/PF 100 mg/2 ml Vial IVP SCH ×4 (01:58→20:46)
[2020-06-30] MEDS: Propofol 1,000 MG/100 ML VIAL IV PRN ×6 (03:18→23:17)
[2020-06-30 05:08] LABS: ALT (SGPT) 28 U/L (8-55); AST (SGOT) 20 U/L (5-34); Albumin 2.4 g/dL (3.5-5.0); Alkaline Phosphatase 74 U/L (40-110); BUN (Urea Nitrogen) 16 mg/dL (8.9-20.6); Bilirubin, Total 0.5 mg/dL (0.2-1.2); Calc. Creatinine Clearance 236 mL/min (70-130); Calcium 7.8 mg/dL (7.8-10.44); Globulin 2.7 g/dL (2.4-3.5); Glucose 144 mg/dL (70-105); Protein, Total 5.1 g/dL (6.0-8.3)
[2020-06-30 05:13] LABS: Anion Gap 10 mmol/L (10-20); Carbon Dioxide 36 mmol/L (22-29); Chloride 99 mmol/L (98-107); Potassium 3.2 mmol/L (3.5-5.1); Sodium 142 mmol/L (136-145)
[2020-06-30] MEDS: Piperacillin/Tazobactam 3.375 GM in Sodium Chloride 0.9% 100 ML IVPB SCH (05:41)
[2020-06-30 05:48] LABS: Eosinophils 1 % (0-10); Hemoglobin 10.5 g/dL (14.0-18.0); Lymphocytes 5 % (21-51); MDiff Complete? YES; Mean Corpuscular HGB CONC 32.5 g/dL (32.0-36.0); Mean Corpuscular Volume 92.3 fL (78.0-98.0); Mean Platelet Volume 8.8 fL (7.4-10.4); Myelocyte 2 % (0-0); Neutrophil 92 % (42-75); Platelet Count 196 thou/uL (130-400); Platelet Morphology Comment Appears Adequate; RBC Distribution Width 13.1 % (11.5-14.5); RBC Morphology Normal; Red Blood Cell (RBC) Count 3.51 mill/uL (4.70-6.10); White Blood Cell (WBC) Count 10.7 thou/uL (4.8-10.8)
--- NOTE | 2020-06-30 06:29 | PDOC.FM ---
- Subjective Subjective: Pt is intubated and sedated. He had frothy, clear sputum. Discussed with RT and believe it is likely 2/2 oral secretions at proximal ET tube. - Objective Vital Signs & Weight: Vital Signs (12 hours) Temp Pulse Resp Pulse Ox 06/30/20 04:00 99.9 F H 20 06/30/20 03:11 78 06/30/20 02:00 23 H 06/30/20 00:00 99.3 F 22 H 06/29/20 22:14 67 06/29/20 22:00 29 H 06/29/20 20:09 65 06/29/20 20:00 98.6 F 28 H 94 L Weight Admit Weight 94.347 kg Weight 87.8 kg Most Recent Monitor Data Heart Rate from ECG 66 NIBP 137/63 NIBP BP-Mean 87 Respiration from ECG 20 SpO2 92 I&O: 06/28/20 06/29/20 06/30/20 06:59 06:59 06:59 Intake Total 2536.9 3257.4 2809 Output Total 1745 3535 3555 Balance 791.9 -277.6 -746 Result Diagrams: 06/30/20 03:30 06/30/20 03:30 Phys Exam - Physical Examination intubated and sedated HEENT: sclera anicteric Neck: no JVD coarse breath sounds Cardiovascular: RRR, no significant murmur Gastrointestinal: soft, no distention trace edema, pulses present Skin: no rash Dx/Plan - Plan Plan: 45 y/o male with an unremarkable PMH who presented to the ER for evaluation of SOB. #AHRF 2/2 COVID PNA, possible Bacterial Co-Infection -Symptoms reportedly began on 06/07 -Patient is currently intubated and sedated, s/p Remdesivir -s/p Ceftriaxone for 7D (Completed on 06/18) -Dexamethasone 6 mg IV daily -> changed to hydrocortisone on 06/25 -D-Dimer: 1 > 6.16 - currently on . Lovenox -Vit C, Vit D, Zinc -Patient developed fever and increased FiO2 requirement on Bi-Level ventilation on 06/19 - no fevers since -Bilevel: 32/15, FiO2 70% -UCx: NGTD -Pulm: Consulted, recs appreciated - currently receiving Vanc and Zosyn. Will supplement with empiric antifungal therapy. Need to discuss discontinuation at this time. -CXR on 06/22 demonstrated possibly Hydropneumothorax - s/p left chest tube placement by Pulm draining serosanguinous fluid. CXR on 06/24 with right apical pneumo. Right Chest tube placed. -overall, extremely poor prognosis at this time, unable to wean much from vent, will continue to monitor #Bacteremia Staph epi at 2 site on 06/20 -BCx: MRSA sensitive to vanc, doxy, and levaquin, continue abx until 06/27 (total 7 days). Need to discuss discontinuation with pulm. #Transaminitis, resolved - Likely 2/2 COVID - Hepatitis Panel: Negative #Hyponatremia, resolved -Likely 2/2 SIADH related to illness #Normocytic Anemia -Hgb : 13.6 > 10.9 - stable -Patient appears hemodynamically stable w/o evidence of acute bleed #Elevated Troponin, resolved -Trop: 0.06 > 0.1 > 0.06 -Likely due to demand ischemia and COVID PNA #Elevated Blood Pressure -Monitor PCP: CC Code: Full Diet: Tube Feeds, Cash Applications Specialist consulted, 0 ml residual VTE PPx: Th. Lovenox Lines/Tube: L Chest tube (06/22), R Chest tube (06/24), Castanon Bi-level Respiratory Support - , FiO2 70% Drips: propofol, midazolam ABX/Antifungal: vanc, zosyn, diflucan Dispo: Patient is currently in critical condition and admitted to the ICU for ongoing management of AHRF 2/2 COVID-19 Pneumonia with possible secondary bacterial infection. Continue steroids and abx per above and pulm recs. Pulm consulted - recs appreciated with continued proning as tolerated. Extremely poor prognosis. Consider removing precautions on 06/28 (21 days since sx onset) or 07/03 (21 days since positive test). Addendum - Attending - Attending Attestation Date/Time: 06/30/20 5551 I personally evaluated the patient and discussed the management with Dr. Haddad. I agree with the History, Examination, Assessment and Plan documented above with any addition or exceptions noted below. Patient now with fever. Penaloza culture, sputum culture. S. epi bactermia - resistant to zosyn, unsure why this was continued, but is on vanc. Unweanable currently Continue TF. Overall discuss with pulm/cc.
[2020-06-30] MEDS ORDERED: Potassium Bicarbonate/Cit Ac 20 MEQ TAB PER TUBE SCH (06:30)
[2020-06-30] MEDS: Mometasone 200 MCG/Formoterol 5 MCG 120 PUFF INHALER INH SCH ×2 (07:01→19:07)
[2020-06-30] MEDS: Fluconazole 100 MG TAB PER TUBE SCH (07:27)
[2020-06-30] MEDS: Pantoprazole 40 MG GRANULES PACKET PER TUBE SCH (07:28)
[2020-06-30] MEDS: Zinc Sulfate 220 MG CAP PO SCH (07:28)
[2020-06-30] MEDS: Rocuronium Bromide 10 MG/ML (10ML VIAL) IVP PRN ×11 (07:29→18:28)
[2020-06-30] MEDS: Enoxaparin Sodium 80 MG/0.8 ML SYRINGE SC SCH ×2 (07:29→20:46)
[2020-06-30] MEDS: Ascorbic Acid 500 mg Chewable Tablet PO SCH (07:29)
[2020-06-30] MEDS: Senokot S 8.6-50 MG TAB PER TUBE SCH ×2 (07:30→20:47)
[2020-06-30] MEDS: Polyethylene Glycol 3350 17 GM Packet PER TUBE SCH (07:30)
--- NOTE | 2020-06-30 09:18 | RAD ---
PORTABLE CHEST: 06/30/20 PROVIDED CLINICAL HISTORY: Pneumonia. COMPARISON: 06/29/2020 FINDINGS: ET positioning is unchanged. Significant interval change with respect to the prior study is not appar ent. IMPRESSION: As above. POS: ANNMARIE
[2020-06-30] MEDS ORDERED: Fentanyl CADD 100 ML ONE ×2 (09:37→21:28)
[2020-06-30] MEDS: Fentanyl CADD 100 ML IV SCH ×2 (09:39→21:31)
[2020-06-30] MEDS: MEROPENEM 1 GM/50 ML 1 GM in Premix Bag 1 BAG IVPB SCH ×2 (13:04→20:46)
--- NOTE | 2020-06-30 16:17 | PRG ---
DATE OF SERVICE: 06/30/2020 SUBJECTIVE: Sukhdev Vincent continues to do poorly. His FiO2 is at 90%. OBJECTIVE: VITAL SIGNS: Blood pressure 167/85, heart rate 80, respiratory rate 20. LUNGS: Remarkable for equal breath sounds. HEART: Regular rhythm. ABDOMEN: Soft. LABORATORY DATA: White count 10.7, hemoglobin 10.5, platelets 196. Sodium 142, potassium 3.2, chloride 99, bicarb 36, BUN 16, creatinine 0.49. IMAGING: Chest x-ray is unchanged. IMPRESSION: COVID pneumonia with respiratory failure. His isolation has been discontinued. New low-grade temp elevation, but unfortunately continues to do poorly. He has been re-cultured today and antibiotics have been changed after my discussion with the house staff. We will continue supportive care. Job ID: [id number]
[2020-06-30] MEDS: Cholecalciferol 1,000 UNITS (25 MCG) TAB PO SCH (20:46)
[2020-07-01 02:49] LABS: Vancomycin, Trough 14.1 ug/mL
[2020-07-01] MEDS: VANCOMYCIN 2 GRAM/400 ML BAG 2 GM in Premix Bag 1 BAG IVPB SCH ×3 (03:29→19:37)
[2020-07-01] MEDS: Hydrocortisone Sod Succ/PF 100 mg/2 ml Vial IVP SCH ×4 (03:31→19:56)
[2020-07-01] MEDS: MEROPENEM 1 GM/50 ML 1 GM in Premix Bag 1 BAG IVPB SCH ×3 (03:48→19:55)
[2020-07-01] MEDS: Propofol 1,000 MG/100 ML VIAL IV PRN ×6 (03:48→21:25)
[2020-07-01] MEDS: Vancomycin HCl 1.75 GM in Sodium Chloride 0.9% 500 ML IVPB SCH (04:04)
--- NOTE | 2020-07-01 06:29 | PDOC.FM ---
- Subjective Subjective: Intubated and sedated. He was satting in 70% on FIO2 of 70. He was increased to FIO2 of 90 and has maintained in the 90% since. - Objective MAR Reviewed: Yes Vital Signs & Weight: Vital Signs (12 hours) Temp Pulse Resp Pulse Ox 07/01/20 04:00 98.9 F 22 H 07/01/20 02:00 28 H 07/01/20 01:52 74 07/01/20 00:00 100.0 F H 24 H 06/30/20 23:16 76 06/30/20 22:00 22 H 06/30/20 20:00 99.1 F 23 H 90 L 06/30/20 19:35 91 L 06/30/20 19:02 88 Weight Admit Weight 94.347 kg Weight 88 kg Most Recent Monitor Data Heart Rate from ECG 72 NIBP 135/67 NIBP BP-Mean 89 Respiration from ECG 22 SpO2 87 I&O: 06/29/20 06/30/20 07/01/20 06:59 06:59 06:59 Intake Total 3257.4 3621.1 1246 Output Total 3535 3825 1690 Balance -277.6 -203.9 -444 Result Diagrams: 06/30/20 03:30 06/30/20 03:30 Phys Exam - Physical Examination HEENT: moist MMs, oral pharynx no lesions Neck: supple Respiratory: clear to auscultation bilateral Cardiovascular: RRR, no significant murmur Gastrointestinal: soft, no distention Musculoskeletal: no edema, pulses present Lymphatic: no nodes Psychiatric: normal affect Skin: no rash, normal turgor Dx/Plan (1) Acute respiratory failure with hypoxia Code(s): J96.01 - ACUTE RESPIRATORY FAILURE WITH HYPOXIA Status: Acute (2) COVID-19 Code(s): U07.1 - COVID-19 Status: Acute (3) Normocytic anemia Code(s): D64.9 - ANEMIA, UNSPECIFIED Status: Acute (4) Transaminitis Code(s): R74.01 - ELEVATION OF LEVELS OF LIVER TRANSAMINASE LEVELS Status: Acute (5) Elevated troponin Code(s): R77.8 - OTHER SPECIFIED ABNORMALITIES OF PLASMA PROTEINS Status: Acute - Plan Plan: 45 y/o male with an unremarkable PMH who presented to the ER for evaluation of SOB. 1. AHRF 2/2 COVID PNA, possible Bacterial Co-Infection on Vent (Bilevel -Symptoms reportedly began on 06/07, positive test on 06/11 -Patient is currently intubated and sedated, s/p Remdesivir * s/p Ceftriaxone for 7D (Completed on 06/18) -Hydrocortisone on 06/25, previously on Dexamethasone 6 mg IV daily -D-Dimer: 1 > 6.16 - currently on Therapeutic Lovenox -Vit C, Vit D, Zinc -Patient developed fever and increased FiO2 requirement on Bi-Level ventilation on 06/19 - no fevers since -Bilevel: , FiO2 70% -UCx: NGTD -Pulm: Consulted, recs appreciated - currently receiving Vanc (06/20), Merope nem(06/30), Fluconazole (06/21) -CXR on 06/22 demonstrated possibly Hydropneumothorax - s/p left chest tube placement by Pulm draining serosanguinous fluid. CXR on 06/24 with right apical pneumo. Right Chest tube placed. -overall, extremely poor prognosis at this time, unable to wean much from vent, will continue to monitor 2. Bacteremia, Course Completed Staph epi at 2 site on 06/20 -BCx: MRSA sensitive to vanc, doxy, and levaquin, continue abx until 06/27 (total 7 days). Need to discuss discontinuation with pulm. 3. Transaminitis, Resolved - Likely 2/2 COVID - Hepatitis Panel: Negative 4. Hyponatremia, Resolved -Likely 2/2 SIADH related to illness 5. Normocytic Anemia, Stable -Hgb : 13.6 > 10.5 -Patient appears hemodynamically stable w/o evidence of acute bleed 6. Elevated Troponin, Resolved -Trop: 0.06 > 0.1 > 0.06 -Likely due to demand ischemia and COVID PNA 7. Elevated Blood Pressure -Monitor PCP: CC Diet: Tube Feeds, Supreme Court Justice consulted, 0 ml residual VTE PPx: Th. Lovenox Lines/Tube: L Chest tube (06/22), R Chest tube (06/24), Castanon Bi-level Respiratory Support - /, FiO2 90% Drips: propofol, midazolam ABX/Antifungal: Vanc, Zosyn, Diflucan Code Status: Full Dispo: No change in current respiratory management. Continue steroids and abx per above and pulm recs. Pulm consulted - recs appreciated with continued proning as tolerated. Extremely poor prognosis. Addendum - Attending - Attending Attestation Date/Time: 07/01/20 1031 I personally evaluated the patient and discussed the management with Dr. Winters. I agree with the History, Examination, Assessment and Plan documented above with any addition or exceptions noted below.
[2020-07-01] MEDS: Mometasone 200 MCG/Formoterol 5 MCG 120 PUFF INHALER INH SCH ×2 (07:49→18:45)
[2020-07-01] MEDS: Fluconazole 100 MG TAB PER TUBE SCH (08:22)
[2020-07-01] MEDS: Zinc Sulfate 220 MG CAP PO SCH (08:22)
[2020-07-01] MEDS: Ascorbic Acid 500 mg Chewable Tablet PO SCH (08:22)
[2020-07-01] MEDS: Pantoprazole 40 MG GRANULES PACKET PER TUBE SCH (08:22)
[2020-07-01] MEDS: Enoxaparin Sodium 80 MG/0.8 ML SYRINGE SC SCH ×2 (08:23→19:38)
[2020-07-01] MEDS: Rocuronium Bromide 10 MG/ML (10ML VIAL) IVP PRN ×9 (08:23→22:26)
[2020-07-01] MEDS: Fentanyl CADD 100 ML IV SCH ×2 (09:25→20:05)
--- NOTE | 2020-07-01 09:42 | RAD ---
PORTABLE CHEST: HISTORY: Respiratory distress. Followup pneumonia. FINDINGS: Endotracheal and NG tubes are in satisfactory position. Chest tubes remain stable in position. No p neumothorax. Bilateral lung infiltrates are unchanged. IMPRESSION: Stable exam. POS: FRANNY
--- NOTE | 2020-07-01 11:23 | PRG ---
DATE OF SERVICE: 35 minutes of critical care time including time spent conversing with the at bedside. SUBJECTIVE: The patient remains heavily sedated on mechanical ventilation. OBJECTIVE: VITAL SIGNS: Temperature 100.2, pulse 106, blood pressure 166/84, O2 saturation 88% on 90% oxygen via bilevel ventilation. His total intake for the last 24 hours was 3621, output 3855. HEENT: Unremarkable. NECK: No adenopathy or JVD. LUNGS: Coarse breath sounds bilaterally. CARDIAC: S1 and S2, regular. ABDOMEN: Soft. EXTREMITIES: Edematous. His chest tubes; he has a leak on the left side, no leak on the right. LABORATORY DATA: I do not see any labs that were done today. His x-ray continues to show bilateral infiltrates. ASSESSMENT: 1. COVID pneumonia. 2. Acute hypoxic respiratory failure requiring mechanical ventilation. PLAN: At the current time, he is not weanable. He was re-cultured yesterday and has been started on fluconazole, meropenem, and vancomycin. We will follow up his culture results. He will continue anticoagulation and steroids. I had a long talk with his at bedside. Job ID: [id number]
[2020-07-01] MEDS: Senokot S 8.6-50 MG TAB PER TUBE SCH ×2 (16:41→19:38)
[2020-07-01] MEDS: Polyethylene Glycol 3350 17 GM Packet PER TUBE SCH (17:42)
[2020-07-01] MEDS: Cholecalciferol 1,000 UNITS (25 MCG) TAB PO SCH (19:38)
[2020-07-01] MEDS ORDERED: Fentanyl CADD 100 ML ONE (20:04)
[2020-07-02] MEDS ORDERED: Fentanyl CADD 100 ML ONE ×2 (00:14→11:43)
[2020-07-02] MEDS: Rocuronium Bromide 10 MG/ML (10ML VIAL) IVP PRN ×13 (00:28→23:09)
[2020-07-02] MEDS: Propofol 1,000 MG/100 ML VIAL IV PRN ×7 (01:06→23:09)
[2020-07-02] MEDS: Hydrocortisone Sod Succ/PF 100 mg/2 ml Vial IVP SCH ×4 (03:50→19:50)
[2020-07-02] MEDS: MEROPENEM 1 GM/50 ML 1 GM in Premix Bag 1 BAG IVPB SCH ×3 (03:51→19:40)
[2020-07-02] MEDS: VANCOMYCIN 2 GRAM/400 ML BAG 2 GM in Premix Bag 1 BAG IVPB SCH ×3 (04:37→19:40)
[2020-07-02 05:38] LABS: Hemoglobin 11.2 g/dL (14.0-18.0); Mean Corpuscular HGB CONC 32.5 g/dL (32.0-36.0); Mean Corpuscular Hemoglobin 30.7 pg (27.0-31.0); Mean Corpuscular Volume 94.4 fL (78.0-98.0); Mean Platelet Volume 7.7 fL (7.4-10.4); Platelet Count 221 thou/uL (130-400); RBC Distribution Width 13.7 % (11.5-14.5); Red Blood Cell (RBC) Count 3.64 mill/uL (4.70-6.10); White Blood Cell (WBC) Count 7.8 thou/uL (4.8-10.8)
[2020-07-02 05:39] LABS: Band 11 % (5-11); Hypochromia SLIGHT = 6-15 cells (100X) (0-5/hpf); Lymphocytes 9 % (21-51); MDiff Complete? YES; Monocytes 7 % (0-10); Neutrophil 73 % (42-75); Platelet Morphology Comment Appears Decreased
[2020-07-02 06:24] LABS: Vancomycin, Trough 12.6 ug/mL
[2020-07-02 06:26] LABS: ALT (SGPT) 26 U/L (8-55); AST (SGOT) 25 U/L (5-34); Albumin 2.3 g/dL (3.5-5.0); Alkaline Phosphatase 69 U/L (40-110); BUN (Urea Nitrogen) 11 mg/dL (8.9-20.6); Bilirubin, Total 0.3 mg/dL (0.2-1.2); Calc. Creatinine Clearance 0 mL/min (70-130); Calcium 7.9 mg/dL (7.8-10.44); Glucose 124 mg/dL (70-105); Protein, Total 5.3 g/dL (6.0-8.3)
[2020-07-02] MEDS: Mometasone 200 MCG/Formoterol 5 MCG 120 PUFF INHALER INH SCH ×2 (06:27→18:08)
--- NOTE | 2020-07-02 06:36 | PDOC.FM ---
- Subjective Subjective: Pt was restless last night and required several rounds of dale. He has had temps of up to 100.4. Finally cultures have not resulted. - Objective MAR Reviewed: Yes Vital Signs & Weight: Vital Signs (12 hours) Pulse Resp BP Pulse Ox 07/02/20 06:28 88 129/70 07/02/20 06:27 88 20 94 L 07/02/20 03:35 20 07/02/20 02:11 96 134/74 07/02/20 00:00 20 07/01/20 22:12 96 133/71 07/01/20 20:00 28 H 07/01/20 18:43 106 H 150/79 H Weight Admit Weight 94.347 kg Weight 94.7 g Most Recent Monitor Data Heart Rate from ECG 89 NIBP 129/70 NIBP BP-Mean 89 Respiration from ECG 20 SpO2 89 I&O: 06/30/20 07/01/20 07/02/20 06:59 06:59 06:59 Intake Total 3621.1 2955.2 2009 Output Total 3825 1900 2065 Balance -203.9 1055.2 -55 Result Diagrams: 07/02/20 05:00 07/02/20 05:00 Phys Exam - Physical Examination Constitutional: NAD HEENT: oral pharynx no lesions Dry mucous membranes Neck: supple Respiratory: clear to auscultation bilateral Cardiovascular: RRR Gastrointestinal: soft, non-tender Musculoskeletal: no edema, pulses present Neurological: moves all 4 limbs Lymphatic: no nodes Psychiatric: normal affect Skin: no rash, normal turgor Dx/Plan (1) Acute respiratory failure with hypoxia Code(s): J96.01 - ACUTE RESPIRATORY FAILURE WITH HYPOXIA Status: Acute (2) COVID-19 Code(s): U07.1 - COVID-19 Status: Acute (3) Normocytic anemia Code(s): D64.9 - ANEMIA, UNSPECIFIED Status: Acute (4) Transaminitis Code(s): R74.01 - ELEVATION OF LEVELS OF LIVER TRANSAMINASE LEVELS Status: Acute (5) Elevated troponin Code(s): R77.8 - OTHER SPECIFIED ABNORMALITIES OF PLASMA PROTEINS Status: Acute - Plan Plan: 45 y/o male with an unremarkable PMH who presented to the ER for evaluation of SOB. 1. AHRF 2/2 COVID PNA, possible Bacterial Co-Infection on Vent (Bilevel -Symptoms reportedly began on 06/07, positive test on 06/11 -Patient is currently intubated and sedated, s/p Remdesivir * s/p Ceftriaxone for 7D (Completed on 06/18) -Hydrocortisone on 06/25, previously on Dexamethasone 6 mg IV daily -D-Dimer: 1 > 6.16 - currently on Therapeutic Lovenox -Vit C, Vit D, Zinc -Patient developed fever and increased FiO2 requirement on Bi-Level ventilation on 06/19 - no fevers since -Bilevel: , FiO2 70% -UCx: NGTD -Pulm: Consulted, recs appreciated - currently receiving Vanc (06/20), Meropenem(06/30), Fluconazole (06/21) -CXR on 06/22 demonstrated possibly Hydropneumothorax - s/p left chest tube placement by Pulm draining serosanguinous fluid. CXR on 06/24 with right apical pneumo. Right Chest tube placed. -overall, extremely poor prognosis at this time, unable to wean much from vent, will continue to monitor 2. Bacteremia, Course Completed Staph epi at 2 site on 06/20 -BCx: MRSA sensitive to vanc, doxy, and levaquin, continue abx until 06/27 (total 7 days). Need to discuss discontinuation with pulm. -Pt recultured on 06/30 3. Transaminitis, Resolved - Likely 2/2 COVID - Hepatitis Panel: Negative 4. Hyponatremia, Resolved -Likely 2/2 SIADH related to illness 5. Normocytic Anemia, Improving -Hgb : 13.6 > 11.2 -Patient appears hemodynamically stable w/o evidence of acute bleed 6. Elevated Troponin, Resolved -Trop: 0.06 > 0.1 > 0.06 -Likely due to demand ischemia and COVID PNA 7. Elevated Blood Pressure -Monitor Diet: Tube Feeds, Bail Bond Agent consulted, 0 ml residual VTE PPx: Th. Lovenox Lines/Tube: L Chest tube (06/22), R Chest tube (06/24), Castanon Bi-level Respiratory Support - , FiO2 90% Drips: propofol, midazolam ABX/Antifungal: Vanc, Zosyn, Diflucan Code Status: Full PCP: CC Dispo: No change in current respiratory management. Continue steroids and abx per above and pulm recs. Pt re-fevered last night, but is on broad spectrum antibiotics with cultures from 06/30 that show no growth, will consider consulting ID. Addendum - Attending - Attending Attestation Date/Time: 07/02/20 1051 I personally evaluated the patient and discussed the management with Dr. Winters. I agree with the History, Examination, Assessment and Plan documented above with any addition or exceptions noted below. Patient with worsening in status, continues to be critically ill. Have had to increase Vent requirements. He also has issues with agitation when off sedation, consider Precedex. Pulm on board. He has completed all known therapies for COVID. CXR stable. Continue current support but expect poor prognosis.
[2020-07-02 06:38] LABS: Anion Gap 12 mmol/L (10-20); Carbon Dioxide 38 mmol/L (22-29); Chloride 98 mmol/L (98-107); Potassium 3.5 mmol/L (3.5-5.1); Sodium 144 mmol/L (136-145)
--- NOTE | 2020-07-02 07:53 | RAD ---
Portable frontal chest radiograph: 07/02/2020 COMPARISON: 07/01/2020 HISTORY: Pneumonia FINDINGS: Stable endotracheal tube, nasogastric tube, and bilateral chest tubes. Severe extensive int erstitial and alveolar opacity noted, most prominent in the mid right lung zone and both lung bases. These findings are unchanged. IMPRESSION: No significant interval change.
[2020-07-02] MEDS ORDERED: Potassium Chloride 20 MEQ TAB PO SCH (08:00)
--- NOTE | 2020-07-02 09:36 | PRG ---
DATE OF SERVICE: 07/02/2020 SUBJECTIVE: He remains intubated, heavily sedated, and paralyzed, has not made any significant improvement. OBJECTIVE: VITAL SIGNS: Temperature 101.8, pulse 90, blood pressure 145/76, O2 saturation 95%. Intake 2812, output 2065. HEENT: Unchanged. He was having some gargling noises around his endotracheal tube, which resolved after putting one more mL of air into his cuff. LUNGS: Have coarse rhonchi and crackles. CARDIAC: Regular. ABDOMEN: Soft. EXTREMITIES: No edema. He has a faint air leak from his left chest tube. No air leak on the right. LABORATORY DATA: White blood cell count 7.8, hematocrit 34.3, and platelet count 221. Sodium 144, potassium 3.5, chloride 98, CO2 30, BUN 11, creatinine 0.4, glucose 124. ASSESSMENT: 1. COVID-19 pneumonia requiring 100% oxygen on bilevel ventilation without any evidence of improvement. 2. Fever-currently on broad-spectrum IV antibiotics for secondary infection with nothing grown out cultures except Staphylococcus epidermidis on 06/20. PLAN: I feel the patient's prognosis for recovery is very poor. He is not weanable at this time. We are continuing steroids, anticoagulation, and ventilator support. We will update his . Job ID: [id number]
[2020-07-02] MEDS: Ascorbic Acid 500 mg Chewable Tablet PO SCH (09:39)
[2020-07-02] MEDS: Pantoprazole 40 MG GRANULES PACKET PER TUBE SCH (09:39)
[2020-07-02] MEDS: Polyethylene Glycol 3350 17 GM Packet PER TUBE SCH (09:40)
[2020-07-02] MEDS: Enoxaparin Sodium 80 MG/0.8 ML SYRINGE SC SCH ×2 (09:40→19:48)
[2020-07-02] MEDS: Senokot S 8.6-50 MG TAB PER TUBE SCH ×2 (09:40→19:48)
[2020-07-02] MEDS: Zinc Sulfate 220 MG CAP PO SCH (09:40)
[2020-07-02] MEDS: Fluconazole 100 MG TAB PER TUBE SCH (10:02)
[2020-07-02] MEDS: Acetaminophen 650 MG/20.3 ML UDCUP PO PRN ×2 (10:15→23:00)
[2020-07-02 11:41] LABS: Vancomycin, Trough 17.8 ug/mL
[2020-07-02] MEDS ORDERED: Sodium Chloride 0.9% (PF) 10 ML VIAL FS PRN (14:30)
[2020-07-02] MEDS: Cholecalciferol 1,000 UNITS (25 MCG) TAB PO SCH (19:48)
[2020-07-02] MEDS: Pantoprazole 40 MG VIAL IVP SCH (19:48)
--- NOTE | 2020-07-02 21:59 | RAD ---
PORTABLE CHEST: 07/02/20 HISTORY: Shortness of breath. CCU follow-up. COMPARISON: 07/02/20 at 5 a.m. This exam performed at 11:40 a.m. but is just now presented for interpretation. ET tube and NG tube remain in place. Confluent infiltrate throughout the right mid and lower lung is unchanged. Hazy infiltrate throughout both lungs appear unchanged. The left chest tube is unchanged. IMPRESSION: Bilateral infiltrates without significant interval change. POS: AGW
[2020-07-03] MEDS ORDERED: Fentanyl CADD 100 ML ONE ×2 (01:06→14:24)
[2020-07-03] MEDS: Fentanyl CADD 100 ML IV SCH (01:08)
[2020-07-03] MEDS: Rocuronium Bromide 10 MG/ML (10ML VIAL) IVP PRN ×13 (01:08→21:58)
[2020-07-03] MEDS: Hydrocortisone Sod Succ/PF 100 mg/2 ml Vial IVP SCH ×4 (02:58→20:20)
[2020-07-03] MEDS: Propofol 1,000 MG/100 ML VIAL IV PRN ×5 (02:59→20:19)
[2020-07-03] MEDS: MEROPENEM 1 GM/50 ML 1 GM in Premix Bag 1 BAG IVPB SCH ×3 (02:59→20:20)
[2020-07-03] MEDS: VANCOMYCIN 2 GRAM/400 ML BAG 2 GM in Premix Bag 1 BAG IVPB SCH ×3 (04:27→20:20)
[2020-07-03 04:32] LABS: #Lymphocytes 0.2 thou/uL (1.20-3.40); #Monocytes 0.2 thou/uL (0.11-0.59); #Neutrophils 4.1 thou/uL (1.40-6.50); %Basophils 0.5 % (0.0-1.0); %Eosinophils 0.7 % (0.0-10.0); %Lymphocytes 4.7 % (21.0-51.0); %Monocytes 4.6 % (0.0-10.0); %Neutrophils 89.5 % (42.0-75.0); Hemoglobin 10.1 g/dL (14.0-18.0); Mean Corpuscular HGB CONC 31.9 g/dL (32.0-36.0); Mean Corpuscular Hemoglobin 30.4 pg (27.0-31.0); Mean Corpuscular Volume 95.4 fL (78.0-98.0); Mean Platelet Volume 8.1 fL (7.4-10.4); Platelet Count 213 thou/uL (130-400); RBC Distribution Width 13.8 % (11.5-14.5); Red Blood Cell (RBC) Count 3.33 mill/uL (4.70-6.10); White Blood Cell (WBC) Count 4.6 thou/uL (4.8-10.8)
[2020-07-03 04:53] LABS: ALT (SGPT) 24 U/L (8-55); AST (SGOT) 31 U/L (5-34); Alkaline Phosphatase 66 U/L (40-110); BUN (Urea Nitrogen) 11 mg/dL (8.9-20.6); Bilirubin, Total 0.3 mg/dL (0.2-1.2); Calc. Creatinine Clearance 291 mL/min (70-130); Calcium 7.7 mg/dL (7.8-10.44); Globulin 2.7 g/dL (2.4-3.5); Glucose 127 mg/dL (70-105); Protein, Total 4.7 g/dL (6.0-8.3)
[2020-07-03 05:04] LABS: Anion Gap 14 mmol/L (10-20); Carbon Dioxide 37 mmol/L (22-29); Chloride 98 mmol/L (98-107); Potassium 3.2 mmol/L (3.5-5.1); Sodium 146 mmol/L (136-145)
[2020-07-03] MEDS ORDERED: Potassium Chloride 20 MEQ TAB PO SCH (06:30)
--- NOTE | 2020-07-03 07:17 | PDOC.FM ---
- Subjective Subjective: Pt is sating 88% on the vent with a temp of 98.1. Intubated and sedated. - Objective MAR Reviewed: Yes Vital Signs & Weight: Vital Signs (12 hours) Temp Pulse Resp BP 07/03/20 04:00 20 07/03/20 01:57 93 146/75 H 07/03/20 00:00 25 H 07/02/20 23:30 100.9 F H 07/02/20 23:00 100.9 F H 07/02/20 22:04 112 H 158/84 H 07/02/20 20:00 27 H Weight Admit Weight 94.347 kg Weight 93.8 kg Most Recent Monitor Data Heart Rate from ECG 81 NIBP 147/74 NIBP BP-Mean 98 Respiration from ECG 20 SpO2 86 I&O: 07/02/20 07/03/20 07/04/20 06:59 06:59 06:59 Intake Total 2812.2 2736.8 Output Total 2065 2700 Balance 747.2 36.8 Result Diagrams: 07/03/20 03:58 07/03/20 03:58 Phys Exam - Physical Examination Constitutional: NAD HEENT: moist MMs, oral pharynx no lesions Neck: no nodes, supple decreased breath sounds Cardiovascular: RRR, no significant murmur Gastrointestinal: soft, non-tender, positive bowel sounds Musculoskeletal: no edema, pulses present sedated unable to assess Lymphatic: no nodes Deviation from normal: unable to assess Skin: no rash, normal turgor Dx/Plan (1) Acute respiratory failure with hypoxia Code(s): J96.01 - ACUTE RESPIRATORY FAILURE WITH HYPOXIA Status: Acute (2) COVID-19 Code(s): U07.1 - COVID-19 Status: Acute (3) Normocytic anemia Code(s): D64.9 - ANEMIA, UNSPECIFIED Status: Acute (4) Transaminitis Code(s): R74.01 - ELEVATION OF LEVELS OF LIVER TRANSAMINASE LEVELS Status: Acute (5) Elevated troponin Code(s): R77.8 - OTHER SPECIFIED ABNORMALITIES OF PLASMA PROTEINS Status: Acute - Plan Plan: 45 y/o male with an unremarkable PMH who presented to the ER for evaluation of SOB. 1. AHRF 2/2 COVID PNA, possible Bacterial Co-Infection on Vent (Bilevel) -Symptoms reportedly began on 06/07, positive test on 06/11 -Patient is currently intubated and sedated, s/p Remdesivir * s/p Ceftriaxone for 7D (Completed on 06/18) * Currently on Vanc, Kellie, and Fluconazole -Hydrocortisone on 06/25, previously on Dexamethasone 6 mg IV daily -D-Dimer: 1 > 6.16 - currently on Therapeutic Lovenox -Vit C, Vit D, Zinc -Patient developed fever and increased FiO2 requirement on Bi-Level ventilation on 06/19 - no fevers since -Bilevel: 34/15, FiO2 100% -UCx: NGTD -Pulm: Consulted, recs appreciated - currently receiving Vanc (06/20), Meropenem(06/30), Fluconazole (06/21) -CXR on 06/22 demonstrated possibly Hydropneumothorax - s/p left chest tube placement by Pulm draining serosanguinous fluid. CXR on 06/24 with right apical pneumo. Right Chest tube placed. -overall, extremely poor prognosis at this time, unable to wean much from vent, will continue to monitor 2. Bacteremia, Course Completed Staph epi at 2 site on 06/20 -BCx: MRSA sensitive to vanc, doxy, and levaquin, continue abx until 06/27 (total 7 days). -Pt recultured on 06/30 3. Transaminitis, Resolved - Likely 2/2 COVID - Hepatitis Panel: Negative 4. Hyponatremia, Resolved -Likely 2/2 SIADH related to illness 5. Normocytic Anemia -Hgb : 13.6 > 10.1 -Patient had blood in NG tube -Changed Protonix to BID 6. Elevated Troponin, Resolved -Trop: 0.06 > 0.1 > 0.06 -Likely due to demand ischemia and COVID PNA 7. Elevated Blood Pressure -Monitor Diet: Tube Feeds, Lawn Sprinkler Installer consulted, 0 ml residual VTE PPx: Th. Lovenox Lines/Tube: L Chest tube (06/22), R Chest tube (06/24), Castanon Bi-level Respiratory Support - , FiO2 90% Drips: propofol, midazolam ABX/Antifungal: Vanc, Zosyn, Diflucan Code Status: Full PCP: CC Dispo: No change in current respiratory management. Continue steroids and abx per above and pulm recs. Prognosis is poor. Addendum - Attending - Attending Attestation Date/Time: 07/03/20 0880 I personally evaluated the patient and discussed the management with Dr. Winters. I agree with the History, Examination, Assessment and Plan documented above with any addition or exceptions noted below. Patient continues to be critically ill, somewhat stable with minor worsening of respiratory status. Pulm on board, suspects poor prognosis. Continue PC discussion with family. Anticipate barotrauma and alveolar hemorrhage may be contributing to worsening now, but those pressures necessary to keep oxygenation/ventilation status even close to acceptable levels. Will increase free water today given mild hypernatremia. Continues to spike fevers but on broad spectrum abx, cultures negative, and PCT low.
[2020-07-03] MEDS: Mometasone 200 MCG/Formoterol 5 MCG 120 PUFF INHALER INH SCH ×2 (08:04→18:44)
--- NOTE | 2020-07-03 08:38 | PRG ---
DATE OF SERVICE: 07/03/2020 TIME SPENT: 35 minutes of critical care time. SUBJECTIVE: The patient remains intubated on mechanical ventilation. There has been no acute changes in his care overnight. He remains with bilateral chest tubes and he is on 100% FiO2 via bilevel ventilation. OBJECTIVE: VITAL SIGNS: His temperature 98.1, and his T-max was 101.1. His pulse is 81, blood pressure 147/74. He is requiring no vasopressors. He is sedated on midazolam and fentanyl. He is requiring continuous paralysis. HEENT: Remarkable for periorbital edema. NECK: Demonstrates no JVD. LUNGS: Coarse breath sounds. He has bilateral chest tubes with air leaks present. CARDIAC: S1 and S2 regular. ABDOMEN: Soft and nontender. EXTREMITIES: Edematous. LABORATORY DATA: Sodium 146, potassium 3.2, chloride 98, CO2 of 37, BUN 11, creatinine 0.4, and glucose 127. White blood cell count 4.6. Hematocrit 31.9. Platelet count 213. X-ray shows diffuse bilateral infiltrates. ASSESSMENT: 1. COVID-19 pneumonia which is very severe. 2. Bilateral pneumothoraces. 3. Acute hypoxic respiratory failure requiring mechanical ventilation. PLAN: 1. I am going to add some colchicine to see if there is alongside of helping any type of inflammatory response, which has not been addressed by the steroids. 2. Discontinue the fluconazole as he has had more than seven days of that. 3. Continue the anticoagulation and corticosteroids. 4. I had a long talk with his yesterday. My personal feeling is that the patient is not going to get better and he will succumb. Job ID: [id number]
[2020-07-03] MEDS: Ascorbic Acid 500 mg Chewable Tablet PO SCH (08:56)
[2020-07-03] MEDS: Colchicine 0.6 MG TAB PER TUBE SCH ×2 (08:56→20:16)
[2020-07-03] MEDS: Enoxaparin Sodium 80 MG/0.8 ML SYRINGE SC SCH ×2 (08:56→20:20)
[2020-07-03] MEDS: Pantoprazole 40 MG VIAL IVP SCH ×2 (08:57→20:21)
[2020-07-03] MEDS: Senokot S 8.6-50 MG TAB PER TUBE SCH ×2 (08:58→20:15)
[2020-07-03] MEDS: Polyethylene Glycol 3350 17 GM Packet PER TUBE SCH (08:58)
[2020-07-03] MEDS: Zinc Sulfate 220 MG CAP PO SCH (08:58)
--- NOTE | 2020-07-03 09:13 | RAD ---
CHEST 1 VIEW: Date: 07/03/2020 INDICATION: Pneumonia. COMPARISON: Prior exam dated 07/02/2020. IMPRESSION: Right-sided thoracostomy tube is unchanged. Left-sided thoracostomy tube is unchanged. No pneumothora x is evident. Bilateral air space disease persists. Left gastric catheter and ET tube tip is unchange d. POS: BH
[2020-07-03] MEDS: Dextrose 5 %-0.45 % NaCl 1,000 ML IV SCH ×2 (10:36→20:13)
[2020-07-03] MEDS: Acetaminophen 650 MG/20.3 ML UDCUP PO PRN (15:32)
[2020-07-03] MEDS: Cholecalciferol 1,000 UNITS (25 MCG) TAB PO SCH (20:20)
[2020-07-04] MEDS: Rocuronium Bromide 10 MG/ML (10ML VIAL) IVP PRN ×13 (00:37→23:44)
[2020-07-04] MEDS: Propofol 1,000 MG/100 ML VIAL IV PRN ×6 (00:37→19:50)
[2020-07-04] MEDS: Hydrocortisone Sod Succ/PF 100 mg/2 ml Vial IVP SCH ×4 (03:53→19:50)
[2020-07-04] MEDS: VANCOMYCIN 2 GRAM/400 ML BAG 2 GM in Premix Bag 1 BAG IVPB SCH ×4 (03:53→19:55)
[2020-07-04] MEDS: MEROPENEM 1 GM/50 ML 1 GM in Premix Bag 1 BAG IVPB SCH ×3 (03:54→19:54)
[2020-07-04] MEDS: Dextrose 5 %-0.45 % NaCl 1,000 ML IV SCH (03:55)
[2020-07-04 04:25] LABS: #Lymphocytes 0.2 thou/uL (1.20-3.40); #Monocytes 0.1 thou/uL (0.11-0.59); %Basophils 0.3 % (0.0-1.0); %Eosinophils 0.4 % (0.0-10.0); %Lymphocytes 5.3 % (21.0-51.0); %Monocytes 3.3 % (0.0-10.0); %Neutrophils 90.7 % (42.0-75.0); Hemoglobin 10.6 g/dL (14.0-18.0); Mean Corpuscular HGB CONC 31.2 g/dL (32.0-36.0); Mean Corpuscular Volume 96.2 fL (78.0-98.0); Platelet Count 226 thou/uL (130-400); RBC Distribution Width 13.9 % (11.5-14.5); Red Blood Cell (RBC) Count 3.52 mill/uL (4.70-6.10); White Blood Cell (WBC) Count 4.4 thou/uL (4.8-10.8)
[2020-07-04] MEDS ORDERED: Fentanyl CADD 100 ML ONE ×2 (04:39→17:14)
[2020-07-04] MEDS: Fentanyl CADD 100 ML IV SCH (04:43)
[2020-07-04 04:55] LABS: ALT (SGPT) 23 U/L (8-55); AST (SGOT) 28 U/L (5-34); Alkaline Phosphatase 67 U/L (40-110); BUN (Urea Nitrogen) 10 mg/dL (8.9-20.6); Bilirubin, Total 0.3 mg/dL (0.2-1.2); Calc. Creatinine Clearance 275 mL/min (70-130); Calcium 7.7 mg/dL (7.8-10.44); Globulin 2.8 g/dL (2.4-3.5); Glucose 162 mg/dL (70-105); Protein, Total 4.8 g/dL (6.0-8.3)
[2020-07-04 05:06] LABS: Chloride 99 mmol/L (98-107); Potassium 3.8 mmol/L (3.5-5.1); Sodium 144 mmol/L (136-145)
[2020-07-04 05:09] LABS: Anion Gap 7 mmol/L (10-20)
[2020-07-04 05:11] LABS: Carbon Dioxide 42 mmol/L (22-29)
[2020-07-04] MEDS: Mometasone 200 MCG/Formoterol 5 MCG 120 PUFF INHALER INH SCH ×2 (07:46→18:51)
--- NOTE | 2020-07-04 08:25 | RAD ---
Exam: Chest one view HISTORY:Respiratory distress. Ventilated patient. Pneumonia. Comparison: 07/03/2020, 07/02/2020 FINDINGS: Lines and tubes: Redemonstration of endotracheal and nasogastric tube. Redemonstration of a left-side d chest tube and right-sided chest tube Cardiac silhouette: Normal Aorta: Unremarkable Pulmonary vessels: Normal Costophrenic angles: Clear LUNGS: Multifocal interstitial and alveolar opacities, unchanged Pneumothorax: No pneumothorax. Osseous abnormalities: None IMPRESSION: No significant interval change
[2020-07-04] MEDS: Ascorbic Acid 500 mg Chewable Tablet PO SCH (09:00)
[2020-07-04] MEDS: Colchicine 0.6 MG TAB PER TUBE SCH ×2 (09:00→19:58)
[2020-07-04] MEDS: Senokot S 8.6-50 MG TAB PER TUBE SCH ×2 (09:00→19:51)
[2020-07-04] MEDS: Zinc Sulfate 220 MG CAP PO SCH (09:00)
[2020-07-04] MEDS: Polyethylene Glycol 3350 17 GM Packet PER TUBE SCH (09:01)
[2020-07-04] MEDS: Enoxaparin Sodium 80 MG/0.8 ML SYRINGE SC SCH ×2 (09:01→19:49)
[2020-07-04] MEDS: Pantoprazole 40 MG VIAL IVP SCH ×2 (09:01→19:59)
--- NOTE | 2020-07-04 10:49 | PDOC.FM ---
- Subjective Subjective: Pt was sating 100% this morning. Vent settings were cut down from FIO2 of 100 to 90. Around 1030 this morning he desatted to the high 70s and was given dale, versed, and fentanyl. Sats improved to mid 80s after turning him on his right side. - Objective MAR Reviewed: Yes Vital Signs & Weight: Vital Signs (12 hours) Temp Pulse Resp BP 07/04/20 08:00 19 07/04/20 07:46 73 124/69 07/04/20 07:00 98.7 F 07/04/20 04:00 31 H 07/04/20 02:12 97 07/04/20 00:20 104 H 07/04/20 00:00 20 Weight Admit Weight 94.347 kg Weight 96.8 g Most Recent Monitor Data Heart Rate from ECG 75 NIBP 132/77 NIBP BP-Mean 95 Respiration from ECG 20 SpO2 86 I&O: 07/03/20 07/04/20 07/05/20 06:59 06:59 06:59 Intake Total 2736.8 2680.0 Output Total 2700 1985 220 Balance 36.8 695.0 -220 Result Diagrams: 07/04/20 03:45 07/04/20 03:45 Phys Exam - Physical Examination Constitutional: NAD HEENT: moist MMs, sclera anicteric Neck: supple slightly coarse breath sounds Cardiovascular: RRR Gastrointestinal: soft, non-tender Musculoskeletal: no edema, pulses present sedated unable to assess Deviation from normal: sedated unable to assess Skin: no rash, normal turgor Dx/Plan (1) Acute respiratory failure with hypoxia Code(s): J96.01 - ACUTE RESPIRATORY FAILURE WITH HYPOXIA Status: Acute (2) COVID-19 Code(s): U07.1 - COVID-19 Status: Acute (3) Normocytic anemia Code(s): D64.9 - ANEMIA, UNSPECIFIED Status: Acute (4) Transaminitis Code(s): R74.01 - ELEVATION OF LEVELS OF LIVER TRANSAMINASE LEVELS Status: Acute (5) Elevated troponin Code(s): R77.8 - OTHER SPECIFIED ABNORMALITIES OF PLASMA PROTEINS Status: Acute - Plan Plan: 45 y/o male with an unremarkable PMH who presented to the ER for evaluation of SOB. 1. AHRF 2/2 COVID PNA, possible Bacterial Co-Infection on Vent (Bilevel) -Symptoms reportedly began on 06/07, positive test on 06/11 -Patient is currently intubated and sedated, s/p Remdesivir * s/p Ceftriaxone for 7D (Completed on 06/18) * Currently on Vanc, Kellie, and Fluconazole -Hydrocortisone on 06/25, previously on Dexamethasone 6 mg IV daily -D-Dimer: 1 > 6.16 - currently on Therapeutic Lovenox -Vit C, Vit D, Zinc, colchine -Patient developed fever and increased FiO2 requirement on Bi-Level ventilation on 06/19 - no fevers since -Bilevel: /, FiO2 100% -UCx: NGTD -Pulm: Consulted, recs appreciated - currently receiving Vanc (06/20), Meropenem(06/30), Fluconazole (06/21) -CXR on 06/22 demonstrated possibly Hydropneumothorax - s/p left chest tube placement by Pulm draining serosanguinous fluid. CXR on 06/24 with right apical pneumo. Right Chest tube placed. -overall, extremely poor prognosis at this time, unable to wean much from vent, will continue to monitor 2. Bacteremia, Course Completed Staph epi at 2 site on 06/20 -BCx: MRSA sensitive to vanc, doxy, and levaquin, continue abx until 06/27 (total 7 days). -Pt recultured on 06/30 3. Transaminitis, Resolved - Likely 2/2 COVID - Hepatitis Panel: Negative 4. Hyponatremia, Resolved -Likely 2/2 SIADH related to illness 5. Normocytic Anemia -Hgb : 13.6 > 10.6 -Patient had blood in NG tube -Changed Protonix to BID 6. Elevated Troponin, Resolved -Trop: 0.06 > 0.1 > 0.06 -Likely due to demand ischemia and COVID PNA 7. Elevated Blood Pressure -Monitor Diet: Tube Feeds, Oil Derrick Operator consulted, 0 ml residual VTE PPx: Th. Lovenox Lines/Tube: L Chest tube (06/22), R Chest tube (06/24), Castanon Bi-level Respiratory Support - , FiO2 90% Drips: propofol, midazolam ABX/Antifungal: Vanc, Zosyn, Diflucan Code Status: Full PCP: CC Dispo: Colchicine added yesterday. Continue steroids and abx per above and pulm recs. Prognosis is poor. Addendum - Attending - Attending Attestation Date/Time: 07/04/20 1050 I personally evaluated the patient and discussed the management with Dr. Winters. I agree with the History, Examination, Assessment and Plan documented above with any addition or exceptions noted below. Patient critical. Has begun having worsening oxygenation status again despite increased vent pressures and FiO2 of 90-100%. Continue antibiotics, Pulm consultation. However, this patient has received all known agents that could possibly support his recovery from COVID and has continued to decline. Suspect we may be nearing a terminal event if his respiratory status continues to decline over the coming days. Palliative on board, family updated. Patient remains FULL code.
[2020-07-04 11:53] LABS: Vancomycin, Trough 28.6 ug/mL
[2020-07-04] MEDS: Cholecalciferol 1,000 UNITS (25 MCG) TAB PO SCH (19:51)
--- NOTE | 2020-07-04 22:05 | PRG ---
DATE OF SERVICE: 07/04/2020 SUBJECTIVE: Carlton remains in critical care unit, mechanically ventilated. OBJECTIVE: VITAL SIGNS: Heart rate is 95, respiratory rate is 20, FiO2 is at 100%, and O2 saturations 80%. He remains a full code. LUNGS: Remarkable for coarse equal breath sounds. HEART: Regular rhythm. ABDOMEN: Soft. LABORATORY DATA: White count 4.4, hemoglobin 10.6, and platelets 226. Sodium 144, potassium 3.8, chloride 99, bicarb 42, BUN 10, and creatinine 0.45. ASSESSMENT AND PLAN: I suspect a bicarb of 42, indicates his pCO2 is rising dramatically with his respiratory failure and his severe COVID pneumonia. Chest x-ray shows diffuse infiltrates. Still has bilateral chest tubes. I do not feel he will survive this. I do not feel a code will increase his chances of survival. Critical care time 30 min. Job ID: [id number] MTDD
[2020-07-04 22:15] LABS: Actual Bicarbonate (HCO3a) 43.3 mEq/L (22-28); Base Excess (BEa) 13.4 mEq/L (-2.0 to +3.0); Calcium, Ionized (arterial) 1.11 mmol/L (1.12-1.30); Carboxyhemoglobin (COHb) 1.1 gm% (0.0-3.0); Hemoglobin (Hb) 11.9 g/dL (14.0-18.0); Potassium - ABG Lab 3.39 mmol/L (3.70-5.30)
[2020-07-04 22:16] LABS: CO2 Tension 89.2 mmHg (35.0-45.0)
[2020-07-04 22:17] LABS: O2 Tension (PaO2), arterial 40.2 mmHg (80.0-100.0); Puncture Site RRA
[2020-07-05] MEDS: Propofol 1,000 MG/100 ML VIAL IV PRN ×6 (00:20→19:23)
[2020-07-05] MEDS: Rocuronium Bromide 10 MG/ML (10ML VIAL) IVP PRN ×16 (01:14→23:50)
[2020-07-05] MEDS: MEROPENEM 1 GM/50 ML 1 GM in Premix Bag 1 BAG IVPB SCH (04:55)
[2020-07-05] MEDS ORDERED: Fentanyl CADD 100 ML ONE (06:01)
--- NOTE | 2020-07-05 06:37 | PDOC.FM ---
- Subjective Subjective: Pt has right sided pneumo re-development. Pt's stayed with him overnight do to poor prognosis. We discussed Nuversasa medication and how it would not be beneficial at this point as the virus is not longer present just the effects of the virus. - Objective MAR Reviewed: Yes Vital Signs & Weight: Vital Signs (12 hours) Pulse Resp Pulse Ox 07/05/20 04:00 34 H 07/05/20 02:11 96 07/05/20 00:00 28 H 07/04/20 22:45 101 H 07/04/20 20:00 20 07/04/20 18:51 95 20 80 L 07/04/20 18:49 95 Weight Admit Weight 94.347 kg Weight 95.7 g Most Recent Monitor Data Heart Rate from ECG 93 NIBP 152/80 NIBP BP-Mean 104 Respiration from ECG 28 SpO2 82 I&O: 07/03/20 07/04/20 07/05/20 06:59 06:59 06:59 Intake Total 2736.8 2680.0 3439.7 Output Total 2700 1985 1795 Balance 36.8 695.0 1644.7 Result Diagrams: 07/04/20 03:45 07/04/20 03:45 Phys Exam - Physical Examination Constitutional: NAD HEENT: moist MMs, sclera anicteric Neck: supple Respiratory: clear to auscultation bilateral Cardiovascular: RRR, no significant murmur Gastrointestinal: soft, non-tender Musculoskeletal: no edema, pulses present sedated Lymphatic: no nodes Deviation from normal: sedated Skin: no rash Dx/Plan (1) Acute respiratory failure with hypoxia Code(s): J96.01 - ACUTE RESPIRATORY FAILURE WITH HYPOXIA Status: Acute (2) COVID-19 Code(s): U07.1 - COVID-19 Status: Acute (3) Normocytic anemia Code(s): D64.9 - ANEMIA, UNSPECIFIED Status: Acute (4) Transaminitis Code(s): R74.01 - ELEVATION OF LEVELS OF LIVER TRANSAMINASE LEVELS Status: Acute (5) Elevated troponin Code(s): R77.8 - OTHER SPECIFIED ABNORMALITIES OF PLASMA PROTEINS Status: Acute - Plan Plan: 45 y/o male with an unremarkable PMH who presented to the ER for evaluation of SOB. 1. AHRF 2/2 COVID PNA, possible Bacterial Co-Infection on Vent (Bilevel) -Symptoms reportedly began on 06/07, positive test on 06/11 -Patient is currently intubated and sedated, s/p Remdesivir * s/p Ceftriaxone for 7D (Completed on 06/18), and Fluconazole * Currently on Vanc, Kellie, * Fluconazole -Hydrocortisone on 06/25, previously on Dexamethasone 6 mg IV daily -D-Dimer: 1 > 6.16 - currently on Therapeutic Lovenox -Vit C, Vit D, Zinc, colchine -Patient developed fever and increased FiO2 requirement on Bi-Level ventilation on 06/19 - no fevers since -Bilevel: /, FiO2 100% -UCx: NGTD -Pulm: Consulted, recs appreciated - currently receiving Vanc (06/20), Meropenem(06/30), Fluconazole (06/21) -CXR on 06/22 demonstrated possibly Hydropneumothorax - s/p left chest tube placement by Pulm draining serosanguinous fluid. CXR on 06/24 with right apical pneumo, XR to be evaluated no change in management. -Bilateral chest tubes present. Pt is redeveloping a pneumo on right 07/05. Likely just needs adjustment. -overall, extremely poor prognosis at this time, unable to wean much from vent, will continue to monitor 2. Bacteremia, Course Completed Staph epi at 2 site on 06/20 -BCx: MRSA sensitive to vanc, doxy, and levaquin, continue abx until 06/27 (total 7 days). -Pt recultured on 06/30 3. Transaminitis, Resolved - Likely 2/2 COVID - Hepatitis Panel: Negative 4. Hyponatremia, Resolved -Likely 2/2 SIADH related to illness 5. Normocytic Anemia -Hgb : 13.6 > 10.6 -Patient had blood in NG tube -Changed Protonix to BID 6. Elevated Troponin, Resolved -Trop: 0.06 > 0.1 > 0.06 -Likely due to demand ischemia and COVID PNA 7. Elevated Blood Pressure -Monitor Diet: Tube Feeds, Mingler Operator consulted VTE PPx: Th. Lovenox Lines/Tube: L Chest tube (06/22), R Chest tube (06/24), Castanon Bi-level Respiratory Support - , FiO2 90% Drips: propofol, midazolam ABX/Antifungal: Vanc, Zosyn, Diflucan Code Status: DNR PCP: CC Dispo: Will adjust vent as indicated. Prognosis is poor. Addendum - Attending - Attending Attestation Date/Time: 07/05/20 1111 I personally evaluated the patient and discussed the management with Dr. Winters. I agree with the History, Examination, Assessment and Plan documented above with any addition or exceptions noted below. Patient critical but overall stable. Continues to have slight worsening in respiratory status. Has possible new mild PTX, suspect this is related to the vent pressures being required to keep him alive. Chest tubes already in place. Continue current therapies. Patient now DNAR. Continue to have discussions with about poor prognosis and anticipate he will begin having further declines in the near future.
[2020-07-05] MEDS: Fentanyl CADD 100 ML IV SCH (06:56)
[2020-07-05] MEDS: Mometasone 200 MCG/Formoterol 5 MCG 120 PUFF INHALER INH SCH ×2 (08:03→18:36)
--- NOTE | 2020-07-05 08:18 | RAD ---
Chest AP view INDICATION: History of pneumonia COMPARISON: Prior exam dated June 26, 2020 at 5:31 AM FINDINGS: Lungs: Bilateral pneumonia is stable, right greater than left. Cardiac silhouette: Mild cardiomegaly is stable. Pulmonary vasculature: Not well seen due to the pneumonia Pleural spaces: Interval development of a [id number] right-sided pneumothorax. Bilateral thor acostomy tubes are stable. No left-sided pneumothorax is evident Upper abdomen: No abnormality seen. Osseous structures: No acute osseous abnormality. Additional findings: ET tube and gastric catheter unchanged. IMPRESSION: 1. Interval development of a [id number] right-sided pneumothorax. No left-sided pneumothorax i dentified. 2. Persistent bilateral pneumonia. 3. ET tube, gastric catheter and bilateral thoracostomy tubes are stable. 4. Findings called to Frances Stephens RN caring for this patient, at 8:15 AM on July 05, 2020.
[2020-07-05] MEDS: Zinc Sulfate 220 MG CAP PO SCH (08:50)
[2020-07-05] MEDS: Ascorbic Acid 500 mg Chewable Tablet PO SCH (08:50)
[2020-07-05] MEDS: Pantoprazole 40 MG VIAL IVP SCH ×2 (08:50→19:23)
[2020-07-05] MEDS: Enoxaparin Sodium 80 MG/0.8 ML SYRINGE SC SCH ×2 (08:51→19:23)
[2020-07-05] MEDS: Hydrocortisone Sod Succ/PF 100 mg/2 ml Vial IVP SCH ×3 (08:51→19:23)
[2020-07-05] MEDS: Senokot S 8.6-50 MG TAB PER TUBE SCH ×2 (08:52→19:23)
[2020-07-05] MEDS: Polyethylene Glycol 3350 17 GM Packet PER TUBE SCH (08:52)
[2020-07-05] MEDS: Colchicine 0.6 MG TAB PER TUBE SCH ×2 (08:57→19:22)
[2020-07-05] MEDS ORDERED: hydrALAZINE 20 MG/ML VIAL SLOW IVP PRN (10:10)
--- NOTE | 2020-07-05 12:00 | PRG ---
DATE OF SERVICE: 07/05/2020 30 minutes critical time. SUBJECTIVE: The patient remains intubated on mechanical ventilation. He is requiring 100% FiO2. With that, his best O2 sats are about 85%. OBJECTIVE: VITAL SIGNS: Temperature 99.9, pulse 112, blood pressure 168/87. HEENT: Unremarkable. NECK: No JVD. LUNGS: Poor air movement. He has air leak in both chest tubes. CARDIOVASCULAR: S1 and S2. Regular. ABDOMEN: Soft. EXTREMITIES: Edematous. LABORATORY DATA: Sodium 144, potassium 3.8, chloride 99, CO2 of 42, BUN 10, creatinine 0.4, glucose 162. ABG from yesterday; pH 7.3, pCO2 89, PO2 of 40. No CBC was done today. His x-ray shows enlarging pneumo on the right despite the chest tube being in place. ASSESSMENT: COVID-19 pneumonia with progressive respiratory failure, despite aggressive mechanical ventilation and bilateral chest tubes. PLAN: I do not see any way he is going to survive this illness. I started some colchicine yesterday effort to try something that might make him better. He is anticoagulated. He is requiring paralysis. Discussed with his at bedside. Job ID: [id number]
[2020-07-05] MEDS: Cholecalciferol 1,000 UNITS (25 MCG) TAB PO SCH (19:23)
[2020-07-06] MEDS ORDERED: Fentanyl CADD 100 ML ONE ×3 (01:00→14:42)
[2020-07-06] MEDS: Fentanyl CADD 100 ML IV SCH (01:03)
[2020-07-06] MEDS: Rocuronium Bromide 10 MG/ML (10ML VIAL) IVP PRN ×16 (01:29→23:50)
[2020-07-06 04:22] LABS: #Eosinphils 0.1 thou/uL (0.0-0.7); #Lymphocytes 0.4 thou/uL (1.20-3.40); #Neutrophils 2.1 thou/uL (1.40-6.50); %Basophils 0.9 % (0.0-1.0); %Lymphocytes 16.7 % (21.0-51.0); %Monocytes 1.4 % (0.0-10.0); %Neutrophils 78.9 % (42.0-75.0); Hemoglobin 10.5 g/dL (14.0-18.0); Mean Corpuscular HGB CONC 32.3 g/dL (32.0-36.0); Mean Corpuscular Hemoglobin 30.5 pg (27.0-31.0); Mean Corpuscular Volume 94.4 fL (78.0-98.0); Mean Platelet Volume 7.9 fL (7.4-10.4); Platelet Count 200 thou/uL (130-400); Red Blood Cell (RBC) Count 3.45 mill/uL (4.70-6.10); White Blood Cell (WBC) Count 2.6 thou/uL (4.8-10.8)
[2020-07-06] MEDS: Propofol 1,000 MG/100 ML VIAL IV PRN ×6 (04:32→23:36)
[2020-07-06] MEDS: Hydrocortisone Sod Succ/PF 100 mg/2 ml Vial IVP SCH ×4 (04:38→19:38)
[2020-07-06 04:46] LABS: ALT (SGPT) 21 U/L (8-55); AST (SGOT) 30 U/L (5-34); Albumin 1.8 g/dL (3.5-5.0); Alkaline Phosphatase 73 U/L (40-110); BUN (Urea Nitrogen) 14 mg/dL (8.9-20.6); Bilirubin, Total 0.4 mg/dL (0.2-1.2); Calc. Creatinine Clearance 0 mL/min (70-130); Calcium 7.5 mg/dL (7.8-10.44); Globulin 2.8 g/dL (2.4-3.5); Glucose 144 mg/dL (70-105); Protein, Total 4.6 g/dL (6.0-8.3)
[2020-07-06 05:03] LABS: Chloride 99 mmol/L (98-107); Potassium 3.4 mmol/L (3.5-5.1); Sodium 144 mmol/L (136-145)
[2020-07-06 05:06] LABS: Anion Gap 9 mmol/L (10-20); Carbon Dioxide 39 mmol/L (22-29)
--- NOTE | 2020-07-06 05:40 | PDOC.FM ---
- Subjective Subjective: No interval change from yesterday. Pt had 1 BM yesterday. - Objective MAR Reviewed: Yes Vital Signs & Weight: Vital Signs (12 hours) Pulse Resp BP Pulse Ox 07/06/20 04:00 28 H 07/06/20 03:58 88 07/06/20 00:00 28 H 07/05/20 22:44 99 147/82 H 07/05/20 20:00 28 H 07/05/20 18:38 94 07/05/20 18:36 87 L 07/05/20 18:00 24 H Weight Admit Weight 94.347 kg Weight 95.7 g Most Recent Monitor Data Heart Rate from ECG 91 NIBP 144/72 NIBP BP-Mean 96 Respiration from ECG 25 SpO2 96 I&O: 07/04/20 07/05/20 07/06/20 06:59 06:59 06:59 Intake Total 2680.0 3439.7 834.3 Output Total 1985 1795 1013 Balance 695.0 1644.7 -178.7 Result Diagrams: 07/06/20 03:56 07/06/20 03:56 Phys Exam - Physical Examination Constitutional: NAD HEENT: moist MMs, oral pharynx no lesions Neck: supple Respiratory: clear to auscultation bilateral Cardiovascular: RRR Gastrointestinal: soft decreased bowel sounds Musculoskeletal: no edema, pulses present sedated Deviation from normal: sedated Skin: no rash Dx/Plan (1) Acute respiratory failure with hypoxia Code(s): J96.01 - ACUTE RESPIRATORY FAILURE WITH HYPOXIA Status: Acute (2) COVID-19 Code(s): U07.1 - COVID-19 Status: Acute (3) Normocytic anemia Code(s): D64.9 - ANEMIA, UNSPECIFIED Status: Acute (4) Transaminitis Code(s): R74.01 - ELEVATION OF LEVELS OF LIVER TRANSAMINASE LEVELS Status: Acute (5) Elevated troponin Code(s): R77.8 - OTHER SPECIFIED ABNORMALITIES OF PLASMA PROTEINS Status: Acute - Plan Plan: 45 y/o male with an unremarkable PMH who presented to the ER for evaluation of SOB. 1. AHRF 2/2 COVID PNA, possible Bacterial Co-Infection on Vent (Bilevel) -Symptoms reportedly began on 06/07, positive test on 06/11 -Patient is currently intubated and sedated, s/p Remdesivir * s/p Ceftriaxone for 7D (Completed on 06/18), Fluconazole, Meropenem, and Vancomycin -Hydrocortisone on 06/25, previously on Dexamethasone 6 mg IV daily -D-Dimer: 1 > 6.16 - currently on Therapeutic Lovenox -Vit C, Vit D, Zinc, colchicine -Patient developed fever and increased FiO2 requirement on Bi-Level ventilation on 06/19 - no fevers since -Bilevel: 34/15, FiO2 100% -UCx: NGTD -Pulm: Consulted, recs appreciated - currently receiving Vanc (06/20), Meropenem(06/30), Fluconazole (06/21) -CXR on 06/22 demonstrated possibly Hydropneumothorax - s/p left chest tube placement by Pulm draining serosanguinous fluid. CXR on 06/24 with right apical pneumo, XR to be evaluated no change in management. -Bilateral chest tubes present. Pt is redeveloping a pneumo on right 07/05. Likely just needs adjustment. -overall, extremely poor prognosis at this time, unable to wean much from vent, will continue to monitor 2. Bacteremia, Course Completed Staph epi at 2 site on 06/20 -BCx: MRSA sensitive to vanc, doxy, and levaquin, continue abx until 06/27 (total 7 days). -Pt recultured on 06/30 3. Transaminitis, Resolved - Likely 2/2 COVID - Hepatitis Panel: Negative 4. Hypernatremia, Improving Na: 147 > 144 -Likely 2/2 SIADH related to illness 5. Normocytic Anemia -Hgb : 13.6 > 10.6 -Patient had blood in NG tube -Changed Protonix to BID 6. Elevated Troponin, Resolved -Trop: 0.06 > 0.1 > 0.06 -Likely due to demand ischemia and COVID PNA 7. Elevated Blood Pressure -Monitor Diet: Tube Feeds, Perioperative Tech consulted VTE PPx: Th. Lovenox Lines/Tube: L Chest tube (06/22), R Chest tube (06/24), Castanon Bi-level Respiratory Support - 35/15, FiO2 100% Drips: propofol, midazolam, dale ABX/Antifungal: None Code Status: DNR PCP: CC Dispo: Will give fluids today and increase flushes to prevent further hypernatremia. Addendum - Attending - Attending Attestation Date/Time: 07/06/20 9807 I personally evaluated the patient and discussed the management with Dr. Winters. I agree with the History, Examination, Assessment and Plan documented above with any addition or exceptions noted below. Patient overall stable overnight. Continues to require large amounts of sedation and paralytics. Respiratory status stable. Repeat CXR. Pulm mgmt. Consider Lasix x1 given his net positive I/O over the last few days. Poor prognosis.
[2020-07-06] MEDS: Mometasone 200 MCG/Formoterol 5 MCG 120 PUFF INHALER INH SCH ×2 (07:35→18:58)
[2020-07-06] MEDS: Ascorbic Acid 500 mg Chewable Tablet PO SCH (07:50)
[2020-07-06] MEDS: Pantoprazole 40 MG VIAL IVP SCH ×2 (07:50→19:39)
[2020-07-06] MEDS: Enoxaparin Sodium 80 MG/0.8 ML SYRINGE SC SCH ×2 (07:50→19:38)
[2020-07-06] MEDS: Zinc Sulfate 220 MG CAP PO SCH (07:51)
[2020-07-06] MEDS: Senokot S 8.6-50 MG TAB PER TUBE SCH ×2 (07:55→19:39)
[2020-07-06] MEDS: Colchicine 0.6 MG TAB PER TUBE SCH ×2 (07:55→19:39)
[2020-07-06] MEDS: Polyethylene Glycol 3350 17 GM Packet PER TUBE SCH (07:55)
[2020-07-06] MEDS ORDERED: Dextrose 5 %-0.45 % NaCl 1,000 ML IV SCH (08:00)
[2020-07-06] MEDS ORDERED: Furosemide 20 MG/2 ML VIAL SLOW IVP SCH (08:30)
[2020-07-06] MEDS ORDERED: Potassium Chloride 40 MEQ in Sodium Chloride 0.9% 250 ML 250 ML IVPB SCH (13:00)
--- NOTE | 2020-07-06 13:38 | PRG ---
DATE OF SERVICE: 07/06/2020 35 minutes critical care time. SUBJECTIVE: The patient remains intubated, on mechanical ventilation. His is at the bedside. Currently on fentanyl, midazolam, and propofol. OBJECTIVE: VITAL SIGNS: Temperature is 98.2, pulse 86, blood pressure 139/69. Intake for 24 hours 1489, output 1943. HEENT: Unchanged-has significant periorbital swelling. NECK: No JVD. LUNGS: Coarse rhonchi. CARDIOVASCULAR: S1, S2. Regular. ABDOMEN: Soft. EXTREMITIES: No edema. I do not see any air leak in the Pleur-evac today. LABORATORY DATA: Sodium 144, potassium 3.4, chloride 99, CO2 of 39, BUN 14, creatinine 0.4, glucose 144. White blood cell count 2.6, hematocrit 32.6, and platelet count 200. X-ray shows diffuse bilateral infiltrates. ASSESSMENT: 1. COVID-19 pneumonia. 2. Acute hypoxic respiratory failure requiring mechanical ventilation. PLAN: I spoke with the at bedside. I actually reviewed the patient's x-rays with her. Again, I do not see in anyway he can survive this illness. His oxygenation has not improved with the current treatment. She is asking that her young children be able to visit him once, which I agree to. In the meantime, we are continuing present care. Job ID: [id number]
--- NOTE | 2020-07-06 16:12 | RAD ---
RADIOGRAPH CHEST 1 VIEW: DATE: 07/06/2020 TIME: 5:47 AM HISTORY: 45-year-old male with pneumonia COMPARISON: 07/05/2020 FINDINGS: The right-sided chest tube was previously can't at the sidehole. It is no longer kinked, and the dist al tip overlies the right hilar/mediastinal shadow. Right pneumothorax is no longer visualized. Left-sided chest tube remains unchanged in position. Severe bilateral diffuse mixed interstitial and alveolar infiltrates, mostly alveolar, right side mor e dense than left, are unchanged. Endotracheal tube and esophagogastric tube remain. IMPRESSION: 1) interval resolution of the right pneumothorax upon straightening of the kink in the right-sided ch est tube. 2) no interval change in the diffuse bilateral severe infiltrates
[2020-07-06] MEDS: Cholecalciferol 1,000 UNITS (25 MCG) TAB PO SCH (19:39)
[2020-07-07] MEDS: Rocuronium Bromide 10 MG/ML (10ML VIAL) IVP PRN ×7 (01:18→08:28)
[2020-07-07] MEDS ORDERED: Fentanyl CADD 100 ML ONE ×2 (01:21→14:29)
[2020-07-07] MEDS: Fentanyl CADD 100 ML IV SCH (01:24)
[2020-07-07] MEDS: Propofol 1,000 MG/100 ML VIAL IV PRN ×6 (03:18→23:20)
[2020-07-07] MEDS: Hydrocortisone Sod Succ/PF 100 mg/2 ml Vial IVP SCH ×4 (05:32→19:35)
--- NOTE | 2020-07-07 05:55 | PDOC.FM ---
- Subjective Subjective: Pt's respiratory status has rapidly deteriorated. came by yesterday with children. She left yesterday around 9 pm. He is satting in the 40s. was called this mornign and was notified and discussed coming up here to see him. - Objective MAR Reviewed: Yes Vital Signs & Weight: Vital Signs (12 hours) Pulse Resp BP 07/07/20 02:25 107 H 07/07/20 00:00 31 H 07/06/20 22:50 104 H 07/06/20 20:00 28 H 07/06/20 18:54 105 H 143/77 H 07/06/20 18:00 26 H Weight Admit Weight 94.347 kg Weight 89.8 g Most Recent Monitor Data Heart Rate from ECG 100 NIBP 131/71 NIBP BP-Mean 91 Respiration from ECG 28 SpO2 64 I&O: 07/05/20 07/06/20 07/07/20 06:59 06:59 06:59 Intake Total 3439.7 1489.3 3954.9 Output Total 1795 1943 2595 Balance 1644.7 -453.7 1359.9 Result Diagrams: 07/06/20 03:56 07/06/20 03:56 Phys Exam - Physical Examination Pt is intubated and sedated HEENT: moist MMs, oral pharynx no lesions Neck: supple decreased breath sounds Cardiovascular: no significant murmur tachycardic Gastrointestinal: soft decreased bowel sounds Musculoskeletal: no edema, pulses present sedated unable to assess Deviation from normal: sedated unable to assess Skin: normal turgor Dx/Plan (1) Acute respiratory failure with hypoxia Code(s): J96.01 - ACUTE RESPIRATORY FAILURE WITH HYPOXIA Status: Acute (2) COVID-19 Code(s): U07.1 - COVID-19 Status: Acute (3) Normocytic anemia Code(s): D64.9 - ANEMIA, UNSPECIFIED Status: Acute (4) Transaminitis Code(s): R74.01 - ELEVATION OF LEVELS OF LIVER TRANSAMINASE LEVELS Status: Acute (5) Elevated troponin Code(s): R77.8 - OTHER SPECIFIED ABNORMALITIES OF PLASMA PROTEINS Status: Acute - Plan Plan: 45 y/o male with an unremarkable PMH who presented to the ER for evaluation of SOB. 1. AHRF 2/2 COVID PNA, possible Bacterial Co-Infection on Vent (Bilevel) -Symptoms reportedly began on 06/07, positive test on 06/11 -Patient is currently intubated and sedated, s/p Remdesivir * s/p Ceftriaxone for 7D (Completed on 06/18), Fluconazole, Meropenem, and Vancomycin -Hydrocortisone on 06/25, previously on Dexamethasone 6 mg IV daily -D-Dimer: 1 > 6.16 - currently on Therapeutic Lovenox -Vit C, Vit D, Zinc, colchicine -Patient developed fever and increased FiO2 requirement on Bi-Level ventilation on 06/19 - no fevers since -Bilevel: 34/, FiO2 100% -UCx: NGTD -Pulm: Consulted, recs appreciated - currently receiving Vanc (06/20), Meropenem(06/30), Fluconazole (06/21) -CXR on 06/22 demonstrated possibly Hydropneumothorax - s/p left chest tube placement by Pulm draining serosanguinous fluid. CXR on 06/24 with right apical pneumo, XR to be evaluated no change in management. -Bilateral chest tubes present. Pt is redeveloping a pneumo on right 07/05. Likely just needs adjustment. -overall, extremely poor prognosis at this time, unable to wean much from vent, will continue to monitor 2. Bacteremia, Course Completed Staph epi at 2 site on 06/20 -BCx: MRSA sensitive to vanc, doxy, and levaquin, continue abx until 06/27 (total 7 days). -Pt recultured on 06/30 3. Transaminitis, Resolved - Likely 2/2 COVID - Hepatitis Panel: Negative 4. Hypernatremia, Improving Na: 147 > 144 -Likely 2/2 SIADH related to illness 5. Normocytic Anemia -Hgb : 13.6 > 10.6 -Patient had blood in NG tube -Changed Protonix to BID 6. Elevated Troponin, Resolved -Trop: 0.06 > 0.1 > 0.06 -Likely due to demand ischemia and COVID PNA 7. Elevated Blood Pressure -Monitor Diet: Tube Feeds, Hide And Skin Fleshing Machine Operator consulted VTE PPx: Th. Lovenox Lines/Tube: L Chest tube (06/22), R Chest tube (06/24), Castanon Bi-level Respiratory Support - 35/15, FiO2 100% Drips: propofol, midazolam, dale ABX/Antifungal: None Code Status: DNR PCP: CC Dispo: No change at this time for patient. Called pt's and notified her of the worsening respiratory status. She will come up here shortly. Nothing to do at this point. Addendum - Attending - Attending Attestation Date/Time: 07/07/20 7650 I personally evaluated the patient and discussed the management with Dr. Winters. I agree with the History, Examination, Assessment and Plan documented above with any addition or exceptions noted below. Suspecting patient is rapidly approaching the end of his life. His O2 sats have continued to drop despite max vent setting and respiratory support. Family updated.
[2020-07-07] MEDS: Mometasone 200 MCG/Formoterol 5 MCG 120 PUFF INHALER INH SCH ×2 (08:33→19:02)
[2020-07-07] MEDS: Enoxaparin Sodium 80 MG/0.8 ML SYRINGE SC SCH ×2 (09:00→19:35)
[2020-07-07] MEDS: Pantoprazole 40 MG VIAL IVP SCH ×2 (09:00→19:40)
--- NOTE | 2020-07-07 10:12 | PRG ---
DATE OF SERVICE: 07/07/2020 30 minutes critical care time. SUBJECTIVE: The patient continues to do quite poorly. O2 sats have been generally in the 40s and 50s. His is at the bedside along with his daughter. OBJECTIVE: VITAL SIGNS: His temperature 98.8, pulse 113, blood pressure 130/74. HEENT: Unchanged. NECK: No JVD. LUNGS: Poor air movement. CARDIOVASCULAR: S1 and S2. Regular. ABDOMEN: Soft. EXTREMITIES: Edematous. He has bilateral chest tubes in place with air leak. IMAGING DATA: X-ray shows no significant change. LABORATORY DATA: Sodium 144, potassium 3.4, chloride 99, CO2 of 39, BUN 14, creatinine 0.4, glucose 144. ASSESSMENT: COVID-19 pneumonia with progressive respiratory failure. I do not think that the patient will improve and I have told the patient's that they would be advisable to withdrawal care. I have stopped the patient's paralytic because important that he not be paralyzed at the time we withdraw care, but we will give sedation as needed. I told the the timing of withdrawal care is up to her. Job ID: [id number]
[2020-07-07] MEDS: Ascorbic Acid 500 mg Chewable Tablet PO SCH (10:27)
[2020-07-07] MEDS: Senokot S 8.6-50 MG TAB PER TUBE SCH ×2 (10:28→19:36)
[2020-07-07] MEDS: Polyethylene Glycol 3350 17 GM Packet PER TUBE SCH (10:28)
[2020-07-07] MEDS: Colchicine 0.6 MG TAB PER TUBE SCH ×2 (10:28→19:35)
[2020-07-07] MEDS: Zinc Sulfate 220 MG CAP PO SCH (10:28)
--- NOTE | 2020-07-07 11:19 | RAD ---
EXAM: Chest one view: HISTORY: Follow-up pneumonia COMPARISON: 07/06/2020 FINDINGS: Stable life-support tubes. Heart size: Within normal limits. Lungs: Extensive bilateral pneumonia with bilateral chest tubes in place. No pneumothorax. Evidence for small bilateral pleural effusions. IMPRESSION: Extensive but overall stable bilateral pneumonia. Continued short-term follow-up.
[2020-07-07] MEDS: Cholecalciferol 1,000 UNITS (25 MCG) TAB PO SCH (19:35)
[2020-07-08] MEDS: Hydrocortisone Sod Succ/PF 100 mg/2 ml Vial IVP SCH ×4 (02:27→20:54)
[2020-07-08] MEDS: Propofol 1,000 MG/100 ML VIAL IV PRN ×4 (03:05→17:03)
[2020-07-08] MEDS ORDERED: Fentanyl CADD 100 ML ONE ×2 (03:54→16:42)
[2020-07-08 04:37] LABS: #Eosinphils 0.1 thou/uL (0.0-0.7); #Lymphocytes 0.8 thou/uL (1.20-3.40); #Monocytes 0.5 thou/uL (0.11-0.59); #Neutrophils 7.3 thou/uL (1.40-6.50); %Basophils 0.4 % (0.0-1.0); %Eosinophils 1.5 % (0.0-10.0); %Lymphocytes 9.2 % (21.0-51.0); %Monocytes 5.1 % (0.0-10.0); %Neutrophils 83.9 % (42.0-75.0); Hemoglobin 10.7 g/dL (14.0-18.0); Mean Corpuscular HGB CONC 32.5 g/dL (32.0-36.0); Mean Corpuscular Hemoglobin 31.2 pg (27.0-31.0); Mean Corpuscular Volume 95.8 fL (78.0-98.0); Mean Platelet Volume 8.2 fL (7.4-10.4); Platelet Count 195 thou/uL (130-400); RBC Distribution Width 14.4 % (11.5-14.5); Red Blood Cell (RBC) Count 3.43 mill/uL (4.70-6.10); White Blood Cell (WBC) Count 8.8 thou/uL (4.8-10.8)
[2020-07-08 04:49] LABS: ALT (SGPT) 25 U/L (8-55); AST (SGOT) 27 U/L (5-34); Albumin 1.8 g/dL (3.5-5.0); Alkaline Phosphatase 81 U/L (40-110); BUN (Urea Nitrogen) 13 mg/dL (8.9-20.6); Bilirubin, Total 0.4 mg/dL (0.2-1.2); Calc. Creatinine Clearance 0 mL/min (70-130); Calcium 7.4 mg/dL (7.8-10.44); Globulin 2.9 g/dL (2.4-3.5); Glucose 146 mg/dL (70-105); Protein, Total 4.7 g/dL (6.0-8.3)
[2020-07-08 04:58] LABS: Anion Gap 16 mmol/L (10-20); Carbon Dioxide 35 mmol/L (22-29); Chloride 95 mmol/L (98-107); Potassium 4.1 mmol/L (3.5-5.1); Sodium 142 mmol/L (136-145)
--- NOTE | 2020-07-08 06:51 | PDOC.FM ---
- Subjective Subjective: No acute changes overnight. He has had a runny bowel movement once daily, but he is on tube feeds currently. - Objective MAR Reviewed: Yes Vital Signs & Weight: Vital Signs (12 hours) Temp Pulse Resp BP Pulse Ox 07/08/20 06:00 44 H 07/08/20 05:00 40 H 07/08/20 04:04 44 H 07/08/20 04:00 99.7 F H 39 H 07/08/20 02:00 32 H 07/08/20 01:00 44 H 07/08/20 00:00 100.0 F H 37 H 07/07/20 23:35 100 07/07/20 22:00 44 H 07/07/20 21:00 45 H 07/07/20 20:00 100.0 F H 44 H 85 L 07/07/20 19:02 81 L 07/07/20 18:56 97 97/57 L Weight Admit Weight 94.347 kg Weight 96.5 kg Most Recent Monitor Data Heart Rate from ECG 88 NIBP 127/62 NIBP BP-Mean 83 Respiration from ECG 27 SpO2 80 I&O: 07/06/20 07/07/20 07/08/20 06:59 06:59 06:59 Intake Total 1489.3 3984.9 1413.1 Output Total 1943 2595 2290 Balance -453.7 1389.9 -876.9 Result Diagrams: 07/08/20 04:05 07/08/20 04:05 Phys Exam - Physical Examination Constitutional: NAD HEENT: sclera anicteric, oral pharynx no lesions Neck: supple decreased breath sounds bilaterally Cardiovascular: RRR, no significant murmur Gastrointestinal: soft Musculoskeletal: no edema, pulses present sedated Deviation from normal: sedated Skin: normal turgor Dx/Plan (1) Acute respiratory failure with hypoxia Code(s): J96.01 - ACUTE RESPIRATORY FAILURE WITH HYPOXIA Status: Acute (2) COVID-19 Code(s): U07.1 - COVID-19 Status: Acute (3) Normocytic anemia Code(s): D64.9 - ANEMIA, UNSPECIFIED Status: Acute (4) Transaminitis Code(s): R74.01 - ELEVATION OF LEVELS OF LIVER TRANSAMINASE LEVELS Status: Acute (5) Elevated troponin Code(s): R77.8 - OTHER SPECIFIED ABNORMALITIES OF PLASMA PROTEINS Status: Acute - Plan Plan: 45 y/o male with an unremarkable PMH who presented to the ER for evaluation of SOB. 1. AHRF 2/2 COVID PNA, possible Bacterial Co-Infection on Vent (Bilevel) -Symptoms reportedly began on 06/07, positive test on 06/11 -Patient is currently intubated and sedated, s/p Remdesivir * s/p Ceftriaxone for 7D (Completed on 06/18), Fluconazole, Meropenem, and Vancomycin -Hydrocortisone on 06/25, previously on Dexamethasone 6 mg IV daily -D-Dimer: 1 > 6.16 - currently on Therapeutic Lovenox -Vit C, Vit D, Zinc, colchicine -Patient developed fever and increased FiO2 requirement on Bi-Level ventilation on 06/19 - no fevers since -Bilevel: /15, FiO2 100% -UCx: NGTD -Pulm: Consulted, recs appreciated - currently receiving Vanc (06/20), Meropenem(06/30), Fluconazole (06/21) -CXR on 06/22 demonstrated possibly Hydropneumothorax - s/p left chest tube placement by Pulm draining serosanguinous fluid. CXR on 06/24 with right apical pneumo, XR to be evaluated no change in management. -Bilateral chest tubes present. Pt is redeveloping a pneumo on right 07/05. Likely just needs adjustment. -overall, extremely poor prognosis at this time, unable to wean much from vent, will continue to monitor 2. Bacteremia, Course Completed Staph epi at 2 site on 06/20 -BCx: MRSA sensitive to vanc, doxy, and levaquin, continue abx until 06/27 (total 7 days). -Pt recultured on 06/30 3. Transaminitis, Resolved - Likely 2/2 COVID - Hepatitis Panel: Negative 4. Hypernatremia, Improving Na: 147 > 142 -Likely 2/2 SIADH related to illness 5. Normocytic Anemia -Hgb : 13.6 > 10.7 -Patient had blood in NG tube -Changed Protonix to BID 6. Elevated Troponin, Resolved -Trop: 0.06 > 0.1 > 0.06 -Likely due to demand ischemia and COVID PNA 7. Elevated Blood Pressure -Monitor Diet: Tube Feeds, Shank Stitcher consulted VTE PPx: Th. Lovenox Lines/Tube: L Chest tube (06/22), R Chest tube (06/24), Castanon Bi-level Respiratory Support - 35/15, FiO2 100% Drips: propofol, midazolam ABX/Antifungal: None Code Status: DNR PCP: CC Dispo: Pt is unweanable from vent. Prognosis is poor.
--- NOTE | 2020-07-08 07:57 | RAD ---
Portable frontal chest radiograph: 07/08/2020 COMPARISON: 07/07/2020 HISTORY: Pneumonia FINDINGS: Stable endotracheal tube and nasogastric tube. Stable bilateral chest tubes. Probable tiny pneumothorax in left lung apex. There is interstitial and alveolar opacity bilaterally, right greater than left, with a perihilar/bibasilar predominance, slightly improved on the left. IMPRESSION: Interstitial and alveolar opacity bilaterally as detailed above. Stable lines and tubes. Probable very tiny left apical pneumothorax.
[2020-07-08] MEDS: Mometasone 200 MCG/Formoterol 5 MCG 120 PUFF INHALER INH SCH ×2 (08:30→19:28)
[2020-07-08] MEDS: Colchicine 0.6 MG TAB PER TUBE SCH ×2 (09:26→20:52)
[2020-07-08] MEDS: Polyethylene Glycol 3350 17 GM Packet PER TUBE SCH (09:27)
[2020-07-08] MEDS: Zinc Sulfate 220 MG CAP PO SCH (09:27)
[2020-07-08] MEDS: Senokot S 8.6-50 MG TAB PER TUBE SCH ×2 (09:27→20:54)
[2020-07-08] MEDS: Pantoprazole 40 MG VIAL IVP SCH ×2 (09:27→20:52)
[2020-07-08] MEDS: Enoxaparin Sodium 80 MG/0.8 ML SYRINGE SC SCH ×2 (09:27→20:52)
[2020-07-08] MEDS: Ascorbic Acid 500 mg Chewable Tablet PO SCH (09:27)
[2020-07-08 12:10] VITALS: TEMP 99.3
[2020-07-08] MEDS: Fentanyl CADD 100 ML IV SCH (17:05)
--- NOTE | 2020-07-08 19:58 | PRG ---
DATE OF SERVICE: 07/08/2020 SUBJECTIVE: Sukhdev Vincent remains ventilated. OBJECTIVE: VITAL SIGNS: Respiratory rate is in the 20s, FiO2 is at 100%, blood pressure is in the 120 to 140 range. LUNGS: Remarkable for coarse equal breath sounds. HEART: Regular rhythm. ABDOMEN: Soft. LABORATORY DATA: White count 8.8, hemoglobin 10.7, and platelets 195. Sodium 142, potassium 4.1, chloride 95, bicarb 35, BUN 13, and creatinine 0.47. IMPRESSION: COVID pneumonia with respiratory failure. Chest radiographs unchanged, could be a tiny left apical pneumothorax that does not need intervention at this point in time. Prognosis for functional recovery being 27 days into this illness is close to 0. Job ID: [id number]
[2020-07-08] MEDS: Cholecalciferol 1,000 UNITS (25 MCG) TAB PO SCH (20:52)
[2020-07-09] MEDS: Propofol 1,000 MG/100 ML VIAL IV PRN ×3 (01:13→21:24)
[2020-07-09] MEDS: Hydrocortisone Sod Succ/PF 100 mg/2 ml Vial IVP SCH ×5 (03:15→23:38)
[2020-07-09] MEDS ORDERED: Fentanyl CADD 100 ML ONE ×2 (06:20→19:22)
--- NOTE | 2020-07-09 07:04 | PDOC.FM ---
- Subjective Subjective: Respiratory status is unchanged. Worsening urine output. He had a BM yesterday. - Objective MAR Reviewed: Yes Vital Signs & Weight: Vital Signs (12 hours) Resp Pulse Ox 07/09/20 06:00 35 H 07/09/20 04:00 33 H 07/09/20 02:00 32 H 07/09/20 00:00 33 H 07/08/20 22:00 31 H 07/08/20 20:00 37 H 86 L Weight Admit Weight 94.347 kg Weight 97 kg Most Recent Monitor Data Heart Rate from ECG 96 NIBP 145/69 NIBP BP-Mean 94 Respiration from ECG 32 SpO2 85 I&O: 07/08/20 07/09/20 07/10/20 06:59 06:59 06:59 Intake Total 1484.8 1675.3 Output Total 2290 1720 Balance -805.2 -44.7 Result Diagrams: 07/08/20 04:05 07/08/20 04:05 Phys Exam - Physical Examination Constitutional: NAD Dry mucous membranes, has a sore on front left of tongue Neck: supple Decreased breath sounds Cardiovascular: RRR Gastrointestinal: soft Hypoactive bowel sounds Musculoskeletal: pulses present dependednt edema in R arm, repositioned sedated Deviation from normal: sedated Skin: no rash Dx/Plan (1) Acute respiratory failure with hypoxia Code(s): J96.01 - ACUTE RESPIRATORY FAILURE WITH HYPOXIA Status: Acute (2) COVID-19 Code(s): U07.1 - COVID-19 Status: Acute (3) Normocytic anemia Code(s): D64.9 - ANEMIA, UNSPECIFIED Status: Acute (4) Transaminitis Code(s): R74.01 - ELEVATION OF LEVELS OF LIVER TRANSAMINASE LEVELS Status: Acute (5) Elevated troponin Code(s): R77.8 - OTHER SPECIFIED ABNORMALITIES OF PLASMA PROTEINS Status: Acute - Plan Plan: 45 y/o male with an unremarkable PMH who presented to the ER for evaluation of SOB. 1. AHRF 2/2 COVID PNA, possible Bacterial Co-Infection on Vent (Bilevel) -Symptoms reportedly began on 06/07, positive test on 06/11 -Patient is currently intubated and sedated, s/p Remdesivir * s/p Ceftriaxone for 7D (Completed on 06/18), Fluconazole, Meropenem, and Vancomycin -Hydrocortisone on 06/25, previously on Dexamethasone 6 mg IV daily -D-Dimer: 1 > 6.16 - currently on Therapeutic Lovenox -Vit C, Vit D, Zinc, colchicine -Patient developed fever and increased FiO2 requirement on Bi-Level ventilation on 06/19 - no fevers since -Bilevel: 34/15, FiO2 100% -UCx: NGTD -Pulm: Consulted, recs appreciated - currently receiving Vanc (06/20), Meropenem(06/30), Fluconazole (06/21) -CXR on 06/22 demonstrated possibly Hydropneumothorax - s/p left chest tube placement by Pulm draining serosanguinous fluid. CXR on 06/24 with right apical pneumo, XR to be evaluated no change in management. -Bilateral chest tubes present. Pt is redeveloping a pneumo on right 07/05. Likely just needs adjustment. -overall, extremely poor prognosis at this time, unable to wean much from vent, will continue to monitor 2. Bacteremia, Course Completed Staph epi at 2 site on 06/20 -BCx: MRSA sensitive to vanc, doxy, and levaquin, continue abx until 06/27 (total 7 days). -Pt recultured on 06/30 3. Transaminitis, Resolved - Likely 2/2 COVID - Hepatitis Panel: Negative 4. Hypernatremia, Improving Na: 147 > 142 -Likely 2/2 SIADH related to illness 5. Normocytic Anemia -Hgb : 13.6 > 10.7 -Patient had blood in NG tube -Changed Protonix to BID 6. Elevated Troponin, Resolved -Trop: 0.06 > 0.1 > 0.06 -Likely due to demand ischemia and COVID PNA 7. Elevated Blood Pressure -Monitor Diet: Tube Feeds, Automotive Electrician consulted VTE PPx: Th. Lovenox Lines/Tube: L Chest tube (06/22), R Chest tube (06/24), Castanon Bi-level Respiratory Support - 35/15, FiO2 100% Drips: propofol, midazolam ABX/Antifungal: None Code Status: DNR PCP: CC Dispo: Pt urine output is decreasing will add on fluids today.
[2020-07-09] MEDS: Mometasone 200 MCG/Formoterol 5 MCG 120 PUFF INHALER INH SCH ×2 (07:53→19:09)
--- NOTE | 2020-07-09 08:12 | RAD ---
1CHEST 1 VIEW: HISTORY: Followup pneumonia. COMPARISON: 07/08/2020. FINDINGS: Stable life support tubes including right and left chest tubes, endotracheal tube, and NG tube. Exte nsive bilateral interstitial alveolar and ground-glass opacity changes with some fairly extensive con solidation. IMPRESSION: Overall stable exam. Continue short-term followup. POS: RRE
[2020-07-09] MEDS: Ascorbic Acid 500 mg Chewable Tablet PO SCH (08:55)
[2020-07-09] MEDS: Colchicine 0.6 MG TAB PER TUBE SCH ×2 (08:55→20:38)
[2020-07-09] MEDS: Enoxaparin Sodium 80 MG/0.8 ML SYRINGE SC SCH ×2 (08:55→20:38)
[2020-07-09] MEDS: Zinc Sulfate 220 MG CAP PO SCH (08:56)
[2020-07-09] MEDS: Pantoprazole 40 MG VIAL IVP SCH ×2 (08:56→20:40)
[2020-07-09] MEDS: Polyethylene Glycol 3350 17 GM Packet PER TUBE SCH (08:56)
[2020-07-09] MEDS: Senokot S 8.6-50 MG TAB PER TUBE SCH ×2 (08:56→20:38)
--- NOTE | 2020-07-09 09:52 | PRG ---
DATE OF SERVICE: 07/09/2020 SUBJECTIVE: The patient continues on mechanical ventilation. He is obtunded. We have seen mild improvement in his O2 sats over the last 2 days. Now, he is up to about 85%. His x-ray looks about the same with bilateral infiltrates, bilateral chest tubes. PHYSICAL EXAMINATION: VITAL SIGNS: Temperature 99.5, pulse 84, blood pressure 134/63. HEENT: Unchanged. NECK: No JVD. LUNGS: Coarse breath sounds. He has air leak from his left chest tube. CARDIAC: S1 and S2, regular. ABDOMEN: Soft. EXTREMITIES: No edema. LABORATORY DATA: No labs were done today that I see. ASSESSMENT: 1. COVID-19 pneumonia. 2. Acute hypoxic respiratory failure. 3. Bilateral pneumothoraces. PLAN: I do not see this improving. I am afraid that the patient's is probably now more optimistic since she is the O2 saturation improved from the 40s to 50s, now into the 80s. I will continue to follow. Job ID: [id number]
--- NOTE | 2020-07-09 16:25 | PDOC.PALPN ---
Palliative Progress Note - Subjective intubated, sedated. - Objective Vital Signs: Vital Signs - Most Recent Temp Pulse Resp BP Pulse Ox 99.3 F 96 28 H 140/69 88 L 07/08/20 12:00 07/09/20 14:43 07/09/20 14:00 07/09/20 14:43 07/09/20 08:00 - Physical Exam Constitutional: encephalitic, ill appearing HEENT: moist MMs Respiratory: no wheezing, diminished lung sound Deviation from normal: Chest tubes bilaterally intubated Cardiovascular: RRR Gastrointestinal: soft, non-tender, positive bowel sounds Genitourinary: vee catheter Musculoskeletal: no cyanosis, no clubbing, diffuse muscle atrophy Skin: cap refill <2 seconds, no lesions, no rash Deviation from normal: encephalopathic - Assessment (1) Palliative care encounter Code(s): Z51.5 - ENCOUNTER FOR PALLIATIVE CARE Current Visit: Yes Status: Acute (2) Acute respiratory failure with hypoxia Code(s): J96.01 - ACUTE RESPIRATORY FAILURE WITH HYPOXIA Current Visit: Yes Status: Acute (3) COVID-19 Code(s): U07.1 - COVID-19 Current Visit: Yes Status: Acute (4) Elevated troponin Code(s): R77.8 - OTHER SPECIFIED ABNORMALITIES OF PLASMA PROTEINS Current Visit: Yes Status: Acute (5) Hyponatremia Code(s): E87.1 - HYPO-OSMOLALITY AND HYPONATREMIA Current Visit: Yes Status: Acute (6) Normocytic anemia Code(s): D64.9 - ANEMIA, UNSPECIFIED Current Visit: Yes Status: Acute - Plan Plan: Lengthy conversation n relation to poor prognosis. Reviewed interventions and poor meaning full recovery despite all aggressive measures. She states she is unable to transition care/"give up". Will place ethics consult related to futile care. [60] minutes spent on this encounter with >50% of the time in counseling and coordination of care. - ROS Non Response: due to endotracheal tube, due to mental status
[2020-07-09] MEDS: Cholecalciferol 1,000 UNITS (25 MCG) TAB PO SCH (20:38)
[2020-07-10] MEDS: Propofol 1,000 MG/100 ML VIAL IV PRN ×3 (05:10→18:51)
[2020-07-10] MEDS: Hydrocortisone Sod Succ/PF 100 mg/2 ml Vial IVP SCH ×3 (05:30→18:32)
[2020-07-10 07:22] LABS: ALT (SGPT) 36 U/L (8-55); AST (SGOT) 34 U/L (5-34); Albumin 1.9 g/dL (3.5-5.0); Alkaline Phosphatase 76 U/L (40-110); Anion Gap 15 mmol/L (10-20); BUN (Urea Nitrogen) 11 mg/dL (8.9-20.6); Bilirubin, Total 0.6 mg/dL (0.2-1.2); Calc. Creatinine Clearance 298 mL/min (70-130); Calcium 7.4 mg/dL (7.8-10.44); Carbon Dioxide 36 mmol/L (22-29); Chloride 94 mmol/L (98-107); Glucose 161 mg/dL (70-105); Potassium 3.5 mmol/L (3.5-5.1); Protein, Total 4.9 g/dL (6.0-8.3); Sodium 141 mmol/L (136-145)
--- NOTE | 2020-07-10 07:40 | RAD ---
Chest one view HISTORY: Pneumonia. Follow-up. COMPARISON: 07/09/2020. FINDINGS: Cardiac silhouette is magnified by projection. Pulmonary vasculature is engorged and partia lly obscured by predominantly diffuse ill-defined patchy areas of parenchymal opacity throughout each lung are similar in appearance to prior study. Mediastinum is midline. Lines and tubes unchanged in position, including bilateral thoracostomy tubes . No evidence of pneumothorax. IMPRESSION : Widespread ill-defined infiltrates and other findings are stable.
[2020-07-10] MEDS: Mometasone 200 MCG/Formoterol 5 MCG 120 PUFF INHALER INH SCH ×2 (08:00→19:33)
--- NOTE | 2020-07-10 08:11 | PDOC.FM ---
- Subjective Subjective: There was no interval change overnight. - Objective MAR Reviewed: Yes Vital Signs & Weight: Vital Signs (12 hours) Resp 07/10/20 00:00 28 H 07/09/20 22:00 37 H Weight Admit Weight 94.347 kg Weight 97 kg Most Recent Monitor Data Heart Rate from ECG 94 NIBP 134/69 NIBP BP-Mean 90 Respiration from ECG 27 SpO2 90 I&O: 07/09/20 07/10/20 07/11/20 06:59 06:59 06:59 Intake Total 1675.3 2289.5 Output Total 1720 1595 25 Balance -44.7 694.5 -25 Result Diagrams: 07/10/20 03:25 07/10/20 03:30 Phys Exam - Physical Examination Constitutional: NAD HEENT: moist MMs some oral lesions present Neck: supple Respiratory: clear to auscultation bilateral Cardiovascular: RRR, no significant murmur Gastrointestinal: soft, non-tender, positive bowel sounds Musculoskeletal: pulses present edematous in hands sedated Deviation from normal: sedated Skin: cap refill <2 seconds Dx/Plan (1) Acute respiratory failure with hypoxia Code(s): J96.01 - ACUTE RESPIRATORY FAILURE WITH HYPOXIA Status: Acute (2) COVID-19 Code(s): U07.1 - COVID-19 Status: Acute (3) Normocytic anemia Code(s): D64.9 - ANEMIA, UNSPECIFIED Status: Acute (4) Transaminitis Code(s): R74.01 - ELEVATION OF LEVELS OF LIVER TRANSAMINASE LEVELS Status: Acute (5) Elevated troponin Code(s): R77.8 - OTHER SPECIFIED ABNORMALITIES OF PLASMA PROTEINS Status: Acute - Plan Plan: 45 y/o male with an unremarkable PMH who presented to the ER for evaluation of SOB. 1. AHRF 2/2 COVID PNA, possible Bacterial Co-Infection on Vent (Bilevel) -Symptoms reportedly began on 06/07, positive test on 06/11 -Patient is currently intubated and sedated, s/p Remdesivir * s/p Ceftriaxone for 7D (started 06/12, Completed on 06/18), Vanc (06/20-07/05), Meropenem(06/30-07/05), Fluconazole (06/21-07/03) -Hydrocortisone on 06/25, previously on Dexamethasone 6 mg IV daily -D-Dimer: 1 > 6.16 - currently on Therapeutic Lovenox -Vit C, Vit D, Zinc, colchicine -Bilevel: 35/15, FiO2 100% -UCx: NGTD -Pulm: Consulted, recs appreciated -CXR on 06/22 demonstrated possibly Hydropneumothorax - s/p left chest tube placement by Pulm draining serosanguinous fluid. CXR on 06/24 with right apical pneumo, XR to be evaluated no change in management. -Bilateral chest tubes present. Pt is redeveloping a pneumo on right 07/05. Likely just needs adjustment. -overall, extremely poor prognosis at this time, unable to wean much from vent, will continue to monitor 2. Bacteremia, Course Completed Staph epi at 2 site on 06/20 -BCx: MRSA sensitive to vanc, doxy, and levaquin, continue abx until 06/27 (total 7 days). -Pt recultured on 06/30 3. Transaminitis, Resolved - Likely 2/2 COVID - Hepatitis Panel: Negative 4. Hypernatremia, Resolved Na: 147 > 141 -Increased free water to make up for deficit 5. Normocytic Anemia -Hgb : 13.6 > 10.5 -Changed Protonix to BID for previous blood in NG tube 6. Elevated Troponin, Resolved -Trop: 0.06 > 0.1 > 0.06 -Likely due to demand ischemia and COVID PNA 7. Elevated Blood Pressure -Will monitor, has prns on today Diet: Tube Feeds, Bank Credit Card Collection Clerk consulted VTE PPx: Th. Lovenox Lines/Tube: L Chest tube (06/22), R Chest tube (06/24), Castanon Bi-level Respiratory Support - 35/15, FiO2 100% Drips: propofol, midazolam ABX/Antifungal: None Code Status: DNR PCP: CC Dispo: Pt had no interval change overnight. Needs chest tubes changed. Will talk more with today.
[2020-07-10 08:37] LABS: Hemoglobin 10.4 g/dL (14.0-18.0); Mean Corpuscular HGB CONC 31.8 g/dL (32.0-36.0); Mean Corpuscular Volume 94.2 fL (78.0-98.0); Mean Platelet Volume 9.2 fL (7.4-10.4); Platelet Count 185 thou/uL (130-400); RBC Distribution Width 14.8 % (11.5-14.5); Red Blood Cell (RBC) Count 3.48 mill/uL (4.70-6.10); White Blood Cell (WBC) Count 10.5 thou/uL (4.8-10.8)
[2020-07-10 09:00] LABS: Anisocytosis MODERATE=16-30 cells (100X) (0-5/hpf); Band 29 % (5-11); Lymphocytes 4 % (21-51); MDiff Complete? YES; Metamyelocyte 4 % (0-0); Monocytes 3 % (0-10); Myelocyte 3 % (0-0); Neutrophil 56 % (42-75); Nucleated RBC 1 % (0); Platelet Morphology Comment Appears Adequate; Polychromasia MODERATE = 3-4 cells (100X) (0-2/hpf); Reactive Lymphocytes 1 % (0-10)
[2020-07-10] MEDS: Enoxaparin Sodium 80 MG/0.8 ML SYRINGE SC SCH ×2 (09:08→20:42)
[2020-07-10] MEDS: Ascorbic Acid 500 mg Chewable Tablet PO SCH (09:08)
[2020-07-10] MEDS: Colchicine 0.6 MG TAB PER TUBE SCH ×2 (09:08→20:42)
[2020-07-10] MEDS: Polyethylene Glycol 3350 17 GM Packet PER TUBE SCH (09:09)
[2020-07-10] MEDS: Zinc Sulfate 220 MG CAP PO SCH (09:09)
[2020-07-10] MEDS: Pantoprazole 40 MG VIAL IVP SCH ×2 (09:09→20:43)
[2020-07-10] MEDS: Senokot S 8.6-50 MG TAB PER TUBE SCH ×2 (09:09→20:43)
--- NOTE | 2020-07-10 09:23 | PRG ---
DATE OF SERVICE: 07/10/2020 TIME SPENT: 30 minutes of critical care time. SUBJECTIVE: The patient remains fairly stable on mechanical ventilation. OBJECTIVE: VITAL SIGNS: His O2 saturations have generally been in the 90s, but he is still requiring 100% oxygen. His temperature is 99.5, pulse 94, and blood pressure 126/69. GENERAL: I cannot get him to wake up and follow commands. HEENT: Unchanged. NECK: No JVD. LUNGS: Poor air movement. He has air leak on the right chest tube. CARDIAC: S1 and S2. Regular. ABDOMEN: Soft. EXTREMITIES: Edematous. LABORATORY DATA: Sodium 140, potassium 3.5, chloride 94, CO2 of 36, BUN 11, creatinine 0.5, and glucose 161. White blood cell count 10.5, hematocrit 32.8, and platelet count 185. ASSESSMENT: 1. COVID-19 pneumonia. 2. Acute respiratory failure. 3. Bilateral pneumothoraces. PLAN: Despite the interval improvement in his oxygenation, I still do not see him surviving this illness. My feeling is that the now see some hope because the patient's O2 saturations improved from the weekend. We are now at hospital day 29. I will continue to follow. Job ID: [id number]
[2020-07-10] MEDS ORDERED: Fentanyl CADD 0 ML ONE (10:42)
[2020-07-10] MEDS ORDERED: Fentanyl CADD 100 ML ONE (10:43)
[2020-07-10] MEDS: Fentanyl CADD 100 ML IV SCH (11:04)
[2020-07-10] MEDS: Cholecalciferol 1,000 UNITS (25 MCG) TAB PO SCH (20:42)
[2020-07-11] MEDS ORDERED: Fentanyl CADD 100 ML ONE ×2 (00:24→13:46)
[2020-07-11] MEDS ORDERED: Ventilator Sedation Protocol 1 EACH FS ONE ×2 (00:41)
[2020-07-11] MEDS ORDERED: Lorazepam 2 MG/ML VIAL SLOW IVP PRN (01:00)
[2020-07-11] MEDS ORDERED: Fentanyl BOLUS 250 ML IVPB PRN (01:00)
[2020-07-11] MEDS ORDERED: Morphine 2 MG/ML VIAL SLOW IVP PRN (01:00)
[2020-07-11] MEDS ORDERED: Fentanyl CADD 100 ML IV SCH (01:00)
[2020-07-11] MEDS ORDERED: DISCONTINUE PREVIOUS NARCOTIC PAIN MEDICATIONS AND BENZODIAZEPINES FS SCH ×2 (01:00→01:15)
[2020-07-11] MEDS ORDERED: Ventilator Sedation Protocol 1 EACH FS SCH (01:02)
[2020-07-11] MEDS: Hydrocortisone Sod Succ/PF 100 mg/2 ml Vial IVP SCH ×4 (01:09→17:23)
[2020-07-11] MEDS ORDERED: Propofol BOLUS 1,000 MG/100 ML VIAL IV PRN (01:15)
[2020-07-11] MEDS: Propofol 1,000 MG/100 ML VIAL IV PRN ×3 (01:21→15:47)
--- NOTE | 2020-07-11 01:28 | PDOC.EVN ---
Event Note - Event Note Event Note: Resident team paged as fentanyl and sedation protocol orders had fallen off. On review of sedatives pt is also on Versed and Propofol. Fentanyl and sedation protocol orders were put in once again but with giving verbal orders to nurse to wean fentanyl as pt tolerates.
--- NOTE | 2020-07-11 06:48 | PDOC.FM ---
- Subjective Subjective: Pt had no change overnight. - Objective MAR Reviewed: Yes Vital Signs & Weight: Vital Signs (12 hours) Pulse Resp Pulse Ox 07/11/20 03:58 104 H 07/11/20 02:00 32 H 07/11/20 00:00 33 H 07/10/20 23:18 103 H 07/10/20 22:00 32 H 07/10/20 20:00 39 H 90 L 07/10/20 19:34 105 H Weight Admit Weight 94.347 kg Weight 97 kg Most Recent Monitor Data Heart Rate from ECG 104 NIBP 137/78 NIBP BP-Mean 97 Respiration from ECG 28 SpO2 89 I&O: 07/09/20 07/10/20 07/11/20 06:59 06:59 06:59 Intake Total 1675.3 2289.5 1449 Output Total 1720 1595 2493 Balance -44.7 694.5 -1044 Result Diagrams: 07/10/20 03:25 07/10/20 03:30 Phys Exam - Physical Examination Constitutional: NAD HEENT: moist MMs lesion on L front of tongue Neck: supple Respiratory: clear to auscultation bilateral Cardiovascular: RRR, no significant murmur Gastrointestinal: soft, non-tender, positive bowel sounds Musculoskeletal: pulses present sedated Deviation from normal: sedated Skin: normal turgor Dx/Plan (1) Acute respiratory failure with hypoxia Code(s): J96.01 - ACUTE RESPIRATORY FAILURE WITH HYPOXIA Status: Acute (2) COVID-19 Code(s): U07.1 - COVID-19 Status: Acute (3) Normocytic anemia Code(s): D64.9 - ANEMIA, UNSPECIFIED Status: Acute (4) Transaminitis Code(s): R74.01 - ELEVATION OF LEVELS OF LIVER TRANSAMINASE LEVELS Status: Acute (5) Elevated troponin Code(s): R77.8 - OTHER SPECIFIED ABNORMALITIES OF PLASMA PROTEINS Status: Acute - Plan Plan: 45 y/o male with an unremarkable PMH who presented to the ER for evaluation of SOB. 1. AHRF 2/2 COVID PNA, possible Bacterial Co-Infection on Vent (Bilevel) -Symptoms reportedly began on 06/07, positive test on 06/11 -Patient is currently intubated and sedated, s/p Remdesivir * s/p Ceftriaxone for 7D (started 06/12, Completed on 06/18), Vanc (06/20-07/05), Meropenem(06/30-07/05), Fluconazole (06/21-07/03) -Hydrocortisone on 06/25, previously on Dexamethasone 6 mg IV daily -D-Dimer: 1 > 6.16 - currently on Therapeutic Lovenox -Vit C, Vit D, Zinc, colchicine -Bilevel: 35/, FiO2 100% -UCx: NGTD -Pulm: Consulted, recs appreciated -CXR on 06/22 demonstrated possibly Hydropneumothorax - s/p left chest tube placement by Pulm draining serosanguinous fluid. CXR on 06/24 with right apical pneumo, XR to be evaluated no change in management. -Bilateral chest tubes present. Pt is redeveloping a pneumo on right 07/05. Likely just needs adjustment. -overall, extremely poor prognosis at this time, unable to wean much from vent, will continue to monitor 2. Bacteremia, Course Completed Staph epi at 2 site on 06/20 -BCx: MRSA sensitive to vanc, doxy, and levaquin, continue abx until 06/27 (total 7 days). -Pt recultured on 06/30 3. Transaminitis, Resolved - Likely 2/2 COVID - Hepatitis Panel: Negative 4. Hypernatremia, Resolved Na: 147 > 141 -Increased free water to make up for deficit 5. Normocytic Anemia -Hgb : 13.6 > 10.4 -Changed Protonix to BID for previous blood in NG tube 6. Elevated Troponin, Resolved -Trop: 0.06 > 0.1 > 0.06 -Likely due to demand ischemia and COVID PNA 7. Elevated Blood Pressure -Will monitor, has prns on Diet: Tube Feeds, Powdered Metal Supervisor consulted VTE PPx: Th. Lovenox Lines/Tube: L Chest tube (06/22), R Chest tube (06/24), Castanon Bi-level Respiratory Support - 35/, FiO2 100% Drips: propofol, midazolam ABX/Antifungal: None Code Status: DNR PCP: CC Dispo: Pt had no interval change overnight. Will have meeting today with ethics.
[2020-07-11] MEDS: Mometasone 200 MCG/Formoterol 5 MCG 120 PUFF INHALER INH SCH ×2 (07:16→19:36)
--- NOTE | 2020-07-11 07:40 | RAD ---
Portable frontal chest radiograph: 07/11/2020 COMPARISON: 07/10/2020 HISTORY: Pneumonia, follow-up exam FINDINGS: Stable endotracheal tube, nasogastric tube, and bilateral chest tubes. No discrete pneumoth orax noted. Extensive interstitial and alveolar opacity persists with a perihilar/bibasilar predominance. IMPRESSION: No significant interval change.
--- NOTE | 2020-07-11 08:15 | PRG ---
DATE OF SERVICE: 07/11/2020 35 minutes critical care time. SUBJECTIVE: The patient remains intubated on mechanical ventilation. There have been no acute changes overnight. OBJECTIVE: VITAL SIGNS: Temperature is 98.1, pulse 104, blood pressure 137/78, 24 hours intake, 1649; output, 2493. HEENT: Shows significant periorbital edema, he is intubated orally. NECK: No adenopathy or JVD. LUNGS: Coarse breath sounds with diminished air entry bilaterally. No air leaks noted on his Pleur-evac. CARDIOVASCULAR: S1, S2. Regular. ABDOMEN: Soft and nontender to palpation. EXTREMITIES: Generalized mild edema throughout. LABORATORY DATA: Labs have not been posted yet. X-rays show no change. ASSESSMENT: 1. COVID-19 pneumonia. 2. Respiratory failure requiring mechanical ventilation. PLAN: So far, we have seen no improvement in the patient's condition. The family remains steadfast and wanting to continue with care. In my opinion this is hopeless, and he has 0 chance for recovery. In the meantime, we will continue with anticoagulation, IV steroids, colchicine, vitamins, etc. Job ID: [id number]
[2020-07-11] MEDS: Pantoprazole 40 MG VIAL IVP SCH ×2 (08:48→20:53)
[2020-07-11] MEDS: Ascorbic Acid 500 mg Chewable Tablet PO SCH (08:48)
[2020-07-11] MEDS: Senokot S 8.6-50 MG TAB PER TUBE SCH ×2 (08:48→20:54)
[2020-07-11] MEDS: Zinc Sulfate 220 MG CAP PO SCH (08:48)
[2020-07-11] MEDS: Enoxaparin Sodium 80 MG/0.8 ML SYRINGE SC SCH ×2 (08:49→20:53)
[2020-07-11] MEDS: Polyethylene Glycol 3350 17 GM Packet PER TUBE SCH (08:49)
[2020-07-11] MEDS: Colchicine 0.6 MG TAB PER TUBE SCH (08:50)
--- NOTE | 2020-07-11 15:50 | PDOC.PALPN ---
Palliative Progress Note - Subjective Intubated with mechanical ventilation, sedation, bilateral chest tubes, - Objective Vital Signs: Vital Signs - Most Recent Temp Pulse Resp BP Pulse Ox 99.3 F 99 37 H 150/85 H 90 L 07/08/20 12:00 07/11/20 14:40 07/11/20 06:00 07/11/20 14:40 07/10/20 20:00 - Physical Exam Constitutional: encephalitic, ill appearing HEENT: moist MMs Respiratory: diminished lung sound Deviation from normal: Mechanical ventilation, bilateraly coarse Cardiovascular: RRR Gastrointestinal: non-tender, positive bowel sounds, incontinent Genitourinary: vee catheter Musculoskeletal: no clubbing, edema present, diffuse muscle atrophy Deviation from normal: sedated Skin: cap refill <2 seconds, no lesions, fragile - Assessment (1) Palliative care encounter Code(s): Z51.5 - ENCOUNTER FOR PALLIATIVE CARE Current Visit: Yes Status: Acute (2) Acute respiratory failure with hypoxia Code(s): J96.01 - ACUTE RESPIRATORY FAILURE WITH HYPOXIA Current Visit: Yes Status: Acute (3) COVID-19 Code(s): U07.1 - COVID-19 Current Visit: Yes Status: Acute (4) Elevated troponin Code(s): R77.8 - OTHER SPECIFIED ABNORMALITIES OF PLASMA PROTEINS Current Visit: Yes Status: Acute (5) Hyponatremia Code(s): E87.1 - HYPO-OSMOLALITY AND HYPONATREMIA Current Visit: Yes Status: Acute (6) Normocytic anemia Code(s): D64.9 - ANEMIA, UNSPECIFIED Current Visit: Yes Status: Acute - Plan Plan: Family meeting with patient spouse, daughter, Dr Browne, Dr Winters, Father Rufino. Dr Browne and Dr Winters provided overview of interventions and aggressive measures to manage Covid. Discussed decline and poor meaningful recovery. Mrs Loco requested follow up conversation for either transition to alternative facility or seek comfort measures through hospice and compassionate extubation. Discussed impact of transfer/fragile state/and lack of possibility of accepting facility. Lengthy conversation of what "compassionate extubation" involved and prevention of further suffering. Mrs Loco shared she has not given Joses parents all of the information in relation to his grave prognosis, she plans on calling them this evening Communicated with Russ Browne and Vianey. Spiritual care/Father Rufino offering spiritual support [60] minutes spent on this encounter with >50% of the time in counseling and coordination of care. - ROS Non Response: due to endotracheal tube, due to mental status
[2020-07-11] MEDS ORDERED: Refresh Lacri-lube Opth Oint 7 GM TUBE EA EYE PRN (16:32)
[2020-07-11] MEDS ORDERED: Refresh Lacri-lube Opth Oint 7 GM TUBE EA EYE SCH (17:00)
[2020-07-11] MEDS: Cholecalciferol 1,000 UNITS (25 MCG) TAB PO SCH (20:53)
[2020-07-12] MEDS: Propofol 1,000 MG/100 ML VIAL IV PRN ×4 (00:37→19:55)
[2020-07-12] MEDS: Colchicine 0.6 MG TAB PER TUBE SCH ×3 (01:14→20:01)
[2020-07-12] MEDS: Hydrocortisone Sod Succ/PF 100 mg/2 ml Vial IVP SCH ×5 (01:15→23:49)
--- NOTE | 2020-07-12 01:49 | PRG ---
DATE OF SERVICE: Ethics consult note. SUBJECTIVE: Ethics consult was obtained on the patient, Sukhdev Vincent, for futile care. Meeting time was today, 07/11/2020 at 1:30 p.m. Meeting between the daughter of the patient, the of the patient who is the medical power of assistant district attorney with myself, Dr. Cj Winters, Alexandra Ratliff, the palliative care nurse practitioner, and Father Rufino Morris. Purpose of the meeting was to explain to the and the daughter that the patient's case and his condition has reached a point where care is futile. We had a long discussion with the , explained that both Dr. Winters, his attending physician, and Dr. Maldonado Sommer, the chain sales consultant shipping and receiving weigher, lisette determined that care was futile and was causing more harm than benefit and that the patient was at end of life. All of and daughter's questions were answered. The wants to know that since the medical team felt that care was futile and that the need was to transition to terminal extubation what her options were. It was explained that she does have the ability if she does not agree with the medical decision that care is futile, that she could look for an alternative place of care that would be appropriate for and willing to accept the patient, and that she had 10 days to do so. The felt that it was appropriate to discuss the patient's condition with other family members including his biological parents. She said that she would have that discussion with family and follow up in the next 24 hours. Of note, the and family have had daily discussions with palliative care team as well as attending physician and the shipping and receiving weigher about the futile care and the patient had been in the hospital now for 30 days with no chance of recovery. The would like to pursue the 10-day option at this time, but she will continue to re-evaluate after discussing with family and the clinical team what her options are and may decide to transition to comfort care prior to the 10 days. Job ID: [id number] MTDD
[2020-07-12] MEDS ORDERED: Fentanyl CADD 100 ML ONE ×2 (02:45→15:43)
[2020-07-12 05:06] LABS: ALT (SGPT) 44 U/L (8-55); AST (SGOT) 27 U/L (5-34); Alkaline Phosphatase 79 U/L (40-110); BUN (Urea Nitrogen) 9 mg/dL (8.9-20.6); Bilirubin, Total 0.6 mg/dL (0.2-1.2); Calc. Creatinine Clearance 305 mL/min (70-130); Calcium 7.5 mg/dL (7.8-10.44); Glucose 125 mg/dL (70-105)
[2020-07-12 05:16] LABS: Anion Gap 11 mmol/L (10-20); Carbon Dioxide 40 mmol/L (22-29); Chloride 93 mmol/L (98-107); Potassium 3.2 mmol/L (3.5-5.1); Sodium 141 mmol/L (136-145)
[2020-07-12 05:17] LABS: #Eosinphils 0.1 thou/uL (0.0-0.7); #Lymphocytes 0.3 thou/uL (1.20-3.40); #Monocytes 0.3 thou/uL (0.11-0.59); #Neutrophils 7.4 thou/uL (1.40-6.50); %Basophils 0.3 % (0.0-1.0); %Eosinophils 0.7 % (0.0-10.0); %Lymphocytes 3.7 % (21.0-51.0); %Monocytes 3.9 % (0.0-10.0); %Neutrophils 91.4 % (42.0-75.0); Hemoglobin 10.4 g/dL (14.0-18.0); Mean Corpuscular HGB CONC 31.9 g/dL (32.0-36.0); Mean Corpuscular Hemoglobin 30.2 pg (27.0-31.0); Mean Corpuscular Volume 94.7 fL (78.0-98.0); Mean Platelet Volume 9.3 fL (7.4-10.4); Platelet Count 178 thou/uL (130-400); RBC Distribution Width 15.3 % (11.5-14.5); Red Blood Cell (RBC) Count 3.43 mill/uL (4.70-6.10); White Blood Cell (WBC) Count 8.1 thou/uL (4.8-10.8)
--- NOTE | 2020-07-12 06:43 | PDOC.FM ---
- Subjective Subjective: Pt had eye movement yesterday and this morning. He does not follow commands. During oral care yesterday he had bleeding in his mouth. - Objective MAR Reviewed: Yes Vital Signs & Weight: Vital Signs (12 hours) Pulse Pulse Ox 07/12/20 03:24 101 H 07/11/20 23:23 100 07/11/20 20:00 90 L 07/11/20 19:39 103 H Weight Admit Weight 94.347 kg Weight 88.088 kg Most Recent Monitor Data Heart Rate from ECG 96 NIBP 139/83 NIBP BP-Mean 101 Respiration from ECG 30 SpO2 93 I&O: 07/10/20 07/11/20 07/12/20 06:59 06:59 06:59 Intake Total 2289.5 2644.8 1916 Output Total 1595 2993 1281 Balance 694.5 -348.2 635 Result Diagrams: 07/12/20 03:10 07/12/20 03:10 Phys Exam - Physical Examination Constitutional: NAD ulceration on tongue in multiple places Neck: supple Respiratory: clear to auscultation bilateral Cardiovascular: RRR Gastrointestinal: soft, non-tender Musculoskeletal: pulses present edema in his hands is present and pitting, none in legs will grimace to pain Lymphatic: no nodes Deviation from normal: sedated Skin: no rash Dx/Plan (1) Acute respiratory failure with hypoxia Code(s): J96.01 - ACUTE RESPIRATORY FAILURE WITH HYPOXIA Status: Acute (2) COVID-19 Code(s): U07.1 - COVID-19 Status: Acute (3) Normocytic anemia Code(s): D64.9 - ANEMIA, UNSPECIFIED Status: Acute (4) Transaminitis Code(s): R74.01 - ELEVATION OF LEVELS OF LIVER TRANSAMINASE LEVELS Status: Acute (5) Elevated troponin Code(s): R77.8 - OTHER SPECIFIED ABNORMALITIES OF PLASMA PROTEINS Status: Acute - Plan Plan: 45 y/o male with an unremarkable PMH who presented to the ER for evaluation of SOB. 1. AHRF 2/2 COVID PNA, possible Bacterial Co-Infection on Vent (Bilevel) -Symptoms reportedly began on 06/07, positive test on 06/11 -Patient is currently intubated and sedated, s/p Remdesivir * s/p Ceftriaxone for 7D (started 06/12, Completed on 06/18), Vanc (06/20-07/05), Meropenem(06/30-07/05), Fluconazole (06/21-07/03) -Hydrocortisone on 06/25, previously on Dexamethasone 6 mg IV daily -D-Dimer: 1 > 6.16 - currently on Therapeutic Lovenox -Vit C, Vit D, Zinc, colchicine -Bilevel: 35/, FiO2 100% -UCx: NGTD -Pulm: Consulted, recs appreciated -CXR on 06/22 demonstrated possibly Hydropneumothorax - s/p left chest tube placement by Pulm draining serosanguinous fluid. CXR on 06/24 with right apical pneumo, XR to be evaluated no change in management. -Bilateral chest tubes present. Pt is redeveloping a pneumo on right 07/05. Likely just needs adjustment. -overall, extremely poor prognosis at this time, unable to wean much from vent, will continue to monitor 2. Bacteremia, Course Completed Staph epi at 2 site on 06/20 -BCx: MRSA sensitive to vanc, doxy, and levaquin. S/p Abx treatment. -Pt recultured on 06/30 3. Transaminitis, Resolved - Likely 2/2 COVID - Hepatitis Panel: Negative 4. Hypernatremia, Resolved Na: 147 > 141 -Increased free water to make up for deficit 5. Normocytic Anemia -Hgb : 13.6 > 10.4 -Changed Protonix to BID for previous blood in NG tube 6. Elevated Troponin, Resolved -Trop: 0.06 > 0.1 > 0.06 -Likely due to demand ischemia and COVID PNA 7. Elevated Blood Pressure -Will monitor, has prns on Diet: Tube Feeds, Welder [employer] consulted VTE PPx: Th. Lovenox Lines/Tube: L Chest tube (06/22), R Chest tube (06/24), Castanon Bi-level Respiratory Support - 35/, FiO2 100% Drips: propofol, midazolam ABX/Antifungal: None Code Status: DNR PCP: CC Dispo: Pt had no interval change overnight. Will continue current management at this time, will consider transitioning to prophylactic instead of therapeutic lovenox.
[2020-07-12] MEDS: Mometasone 200 MCG/Formoterol 5 MCG 120 PUFF INHALER INH SCH ×2 (06:57→19:06)
[2020-07-12] MEDS: Ascorbic Acid 500 mg Chewable Tablet PO SCH (08:50)
[2020-07-12] MEDS: Pantoprazole 40 MG VIAL IVP SCH ×2 (08:50→20:01)
[2020-07-12] MEDS: Zinc Sulfate 220 MG CAP PO SCH (08:50)
[2020-07-12] MEDS: Senokot S 8.6-50 MG TAB PER TUBE SCH ×2 (08:51→20:01)
[2020-07-12] MEDS: Polyethylene Glycol 3350 17 GM Packet PER TUBE SCH (08:51)
[2020-07-12] MEDS: Enoxaparin Sodium 80 MG/0.8 ML SYRINGE SC SCH (08:56)
[2020-07-12] MEDS ORDERED: Potassium Chloride 40 MEQ in Sodium Chloride 0.9% 250 ML 250 ML IVPB SCH (09:00)
--- NOTE | 2020-07-12 09:30 | RAD ---
PORTABLE CHEST: Date: 07/12/2020 INDICATION: CCU follow-up with pneumonia. COMPARISON: 07/11/2020. FINDINGS/IMPRESSION: ET tube and NG tube unchanged. Bilateral chest tubes again noted. Bilateral diffuse interstitial and hazy alveolar infiltrates again noted. Infiltrative process is mor e dense in the right mid and lower lung, but stable in appearance from yesterday. POS: AGW
[2020-07-12] MEDS: Chlorhexidine Gluconate 15 ML UDCUP SSP SCH ×2 (10:00→20:01)
--- NOTE | 2020-07-12 11:27 | PRG ---
DATE OF SERVICE: 07/12/2020 TIME SPENT: 30 minutes of critical care time. SUBJECTIVE: The patient is no better on mechanical ventilation, if anything his O2 saturation is worse. I am reading a note in the chart that indicates the [place] Natural Act was enacted on the patient yesterday. PHYSICAL EXAMINATION: VITAL SIGNS: Temperature is 98.2, pulse 94, blood pressure 152/91, O2 saturation in the 90s. HEENT: He has bleeding from his lips and conjunctival edema. NECK: No JVD. LUNGS: Bilateral chest tubes. No significant air leak. Poor air movement. CARDIAC: S1 and S2. Regular. ABDOMEN: Soft. EXTREMITIES: No edema. LABORATORY DATA: White blood cell count 8.1, hematocrit 32.5, and platelet count 178. Sodium 141, potassium 3.2, chloride 93, CO2 of 40, BUN 9, creatinine 0.4, glucose 125. Chest x-ray continues to show bilateral chest tubes, diffuse pulmonary infiltrates. ASSESSMENT AND PLAN: COVID-19 pneumonia. This patient has been hospitalized now for 31 days and we have seen absolutely no improvement in his pulmonary status. I continue be of the opinion that this is a fruitless endeavor. Because of significant bleeding, I am going to hold his anticoagulation for the next 48 hours. We will continue care with the ventilator. He is DNR. The family has 10 days to identify another hospital to care for him if they wish to continue on. Job ID: [id number]
[2020-07-12 16:28] LABS: Potassium 3.9 mmol/L (3.5-5.1)
--- NOTE | 2020-07-12 16:39 | PDOC.PALPN ---
Palliative Progress Note - Subjective Intubated with mechanical ventilation, no purposeful engagement. Bilateral chest tubes - Objective Vital Signs: Vital Signs - Most Recent Temp Pulse Resp BP Pulse Ox 99.3 F 100 37 H 150/85 H 90 L 07/08/20 12:00 07/12/20 14:27 07/11/20 06:00 07/11/20 14:40 07/11/20 20:00 - Physical Exam Constitutional: encephalitic, ill appearing Deviation from normal: Dry fragile mucous membranes, Respiratory: diminished lung sound Cardiovascular: RRR Gastrointestinal: soft, non-tender Genitourinary: vee catheter Musculoskeletal: no cyanosis, diffuse muscle atrophy Deviation from normal: No purposeful engagement, facila symmetry Skin: cap refill <2 seconds, fragile Deviation from normal: encephalopathic/sedated - Assessment (1) Palliative care encounter Code(s): Z51.5 - ENCOUNTER FOR PALLIATIVE CARE Current Visit: Yes Status: Acute (2) Acute respiratory failure with hypoxia Code(s): J96.01 - ACUTE RESPIRATORY FAILURE WITH HYPOXIA Current Visit: Yes Status: Acute (3) COVID-19 Code(s): U07.1 - COVID-19 Current Visit: Yes Status: Acute (4) Elevated troponin Code(s): R77.8 - OTHER SPECIFIED ABNORMALITIES OF PLASMA PROTEINS Current Visit: Yes Status: Acute (5) Hyponatremia Code(s): E87.1 - HYPO-OSMOLALITY AND HYPONATREMIA Current Visit: Yes Status: Acute (6) Normocytic anemia Code(s): D64.9 - ANEMIA, UNSPECIFIED Current Visit: Yes Status: Acute - Plan Plan: asked for continued conversation to revisit transition of care to comfort measures. She expressed difficulty in the decision to transition care. Reviewed again all the aggressive measures provided that have not manifested with the recovery hoped for. She further expressed she saw her husbands eyes yesterday and "He was gone, he did not look the same". We reviewed again what would happen with transition of care to hospice with compassionate extubation. She states family members are calling hospitals for her, but she knows this in not really an option. However, she must try. She is continuing to communicate with patient parents who lack understanding of patient prognosis. Palliative Care will continue to support Mrs Vincent and facilitate transition to comfort measures if and when decision is made. [50] minutes spent on this encounter with >50% of the time in counseling and coordination of care. - ROS Non Response: due to endotracheal tube, due to mental status
[2020-07-12] MEDS: Cholecalciferol 1,000 UNITS (25 MCG) TAB PO SCH (20:02)
[2020-07-13] MEDS: Propofol 1,000 MG/100 ML VIAL IV PRN ×4 (01:47→20:04)
[2020-07-13] MEDS ORDERED: Fentanyl CADD 100 ML ONE ×2 (05:14→18:28)
[2020-07-13] MEDS: Hydrocortisone Sod Succ/PF 100 mg/2 ml Vial IVP SCH ×4 (05:21→23:23)
--- NOTE | 2020-07-13 06:36 | PDOC.FM ---
- Subjective Subjective: Patient with no acute events overnight. Over the past few days the patient has been opening his eyes more and grimaces to pain. ROS unable to be obtained 2/2 intubation. - Objective MAR Reviewed: Yes Vital Signs & Weight: Vital Signs (12 hours) Pulse Pulse Ox 07/13/20 03:33 107 H 07/12/20 22:16 103 H 07/12/20 20:00 90 L 07/12/20 19:08 105 H Weight Admit Weight 94.347 kg Weight 87.453 kg Most Recent Monitor Data Heart Rate from ECG 103 NIBP 158/90 NIBP BP-Mean 112 Respiration from ECG 14 SpO2 92 I&O: 07/11/20 07/12/20 07/13/20 06:59 06:59 06:59 Intake Total 2644.8 2895.6 1673.3 Output Total 2993 1466 1475 Balance -348.2 1429.6 198.3 Result Diagrams: 07/12/20 03:10 07/12/20 16:05 Phys Exam - Physical Examination Constitutional: NAD HEENT: moist MMs Intubated Respiratory: no wheezing, no rales, no rhonchi Cardiovascular: RRR, no significant murmur, no rub Gastrointestinal: soft, non-tender, positive bowel sounds Musculoskeletal: no edema Intubated and sedated, GCS 5- E3 V1T M1 Skin: no rash, normal turgor, cap refill <2 seconds Dx/Plan - Plan Plan: 45 y/o male with an unremarkable PMH who presented to the ER for evaluation of SOB. AHRF 2/2 COVID PNA, possible Bacterial Co-Infection on Vent (Bilevel) -Symptoms reportedly began on 06/07, positive test on 06/11 -Patient is currently intubated and sedated, s/p Remdesivir * s/p Ceftriaxone for 7D (started 06/12, Completed on 06/18), Vanc (06/20-07/05), Meropenem(06/30-07/05), Fluconazole (06/21-07/03) -Hydrocortisone on 06/25, previously on Dexamethasone 6 mg IV daily -D-Dimer: 1 > 6.16 - currently on Therapeutic Lovenox -Vit C, Vit D, Zinc, colchicine -Bilevel: 35/15, FiO2 100% -UCx: NGTD -Pulm: Consulted, recs appreciated -CXR on 06/22 demonstrated possibly Hydropneumothorax - s/p left chest tube placement by Pulm draining serosanguinous fluid. CXR on 06/24 with right apical pneumo, XR to be evaluated no change in management. -Bilateral chest tubes present. Pt is redeveloping a pneumo on right 07/05. -Will need continuous re-eval for end point on CT -overall, extremely poor prognosis at this time, unable to wean from vent, will continue to monitor Bleeding Concern Bright red blood in mouth during oral care yesterday - thx lovenox held at this time. Consider restarting @ DVT ppx dose instead of thx Bacteremia, Course Completed Staph epi at 2 site on 06/20 -BCx: MRSA sensitive to vanc, doxy, and levaquin. S/p Abx treatment. -Pt recultured on 06/30 Transaminitis, Resolved - Likely 2/ COVID - Hepatitis Panel: Negative Hypernatremia, Resolved Na: 147 > 141 -Increased free water to make up for deficit Normocytic Anemia -Hgb : 13.6 > 10.4 -Changed Protonix to BID for previous blood in NG tube Elevated Troponin, Resolved -Trop: 0.06 > 0.1 > 0.06 -Likely due to demand ischemia and COVID PNA Elevated Blood Pressure -Will monitor, has prns on Diet: Tube Feeds, Manager [employer] consulted VTE PPx: Th. Lovenox (Held 07/12-6) Lines/Tube: L Chest tube (06/22), R Chest tube (06/24), Castanon Bi-level Respiratory Support - 35/15, FiO2 100% Drips: propofol, midazolam, fentanyl ABX/Antifungal: None Code Status: DNR PCP: CC Dispo: Pt had no interval change overnight. Will continue current management at this time, will consider transitioning to prophylactic instead of therapeutic lovenox after 48 hr hold. Addendum - Attending - Attending Attestation Date/Time: 07/13/20 5415 I personally evaluated the patient and discussed the management with Dr. Blackwell. I agree with the History, Examination, Assessment and Plan documented above with any addition or exceptions noted below.
[2020-07-13] MEDS: Mometasone 200 MCG/Formoterol 5 MCG 120 PUFF INHALER INH SCH ×2 (07:08→18:24)
[2020-07-13] MEDS: Chlorhexidine Gluconate 15 ML UDCUP SSP SCH ×2 (08:29→20:07)
[2020-07-13] MEDS: Ascorbic Acid 500 mg Chewable Tablet PO SCH (08:32)
[2020-07-13] MEDS: Polyethylene Glycol 3350 17 GM Packet PER TUBE SCH (08:32)
[2020-07-13] MEDS: Zinc Sulfate 220 MG CAP PO SCH (08:32)
[2020-07-13] MEDS: Pantoprazole 40 MG VIAL IVP SCH ×2 (08:48→20:04)
--- NOTE | 2020-07-13 08:53 | RAD ---
CHEST 1 VIEW: Date: 07/13/2020 INDICATION: History of pneumonia. COMPARISON: Prior exam dated 07/12/2020. IMPRESSION: The patient remains intubated with gastric catheter placement. Bilateral pneumonia is stable appearin g. Bilateral chest tubes are similar appearing. No pneumothorax is evident. POS: BH
[2020-07-13] MEDS: Senokot S 8.6-50 MG TAB PER TUBE SCH ×2 (10:00→20:06)
[2020-07-13] MEDS: Colchicine 0.6 MG TAB PER TUBE SCH ×2 (10:00→20:11)
--- NOTE | 2020-07-13 17:23 | PRG ---
DATE OF SERVICE: 07/13/2020 SUBJECTIVE: Mr. Vincent remains mechanically ventilated. OBJECTIVE: VITAL SIGNS: Heart rate is 111, blood pressure 161/86, respiratory rate is 28, O2 saturation is 80, FiO2 is 100%. LUNGS: Unchanged. HEART: Unchanged. ABDOMEN: Unchanged. IMAGING STUDIES: Chest x-ray is unchanged. ASSESSMENT AND PLAN: COVID pneumonia, unlikely to survive given that he has been hospitalized over a month and has had absolutely no improvement. Job ID: [id number]
[2020-07-13] MEDS: Cholecalciferol 1,000 UNITS (25 MCG) TAB PO SCH (20:04)
[2020-07-13] MEDS: Acetaminophen 650 MG/20.3 ML UDCUP PO PRN (21:23)
[2020-07-14 03:44] LABS: #Basophils 0.1 thou/uL (0.0-0.2); #Lymphocytes 0.2 thou/uL (1.20-3.40); #Monocytes 0.3 thou/uL (0.11-0.59); #Neutrophils 9.2 thou/uL (1.40-6.50); %Basophils 0.7 % (0.0-1.0); %Eosinophils 0.4 % (0.0-10.0); %Lymphocytes 1.7 % (21.0-51.0); %Monocytes 3.4 % (0.0-10.0); %Neutrophils 93.9 % (42.0-75.0); Mean Corpuscular HGB CONC 31.4 g/dL (32.0-36.0); Mean Corpuscular Volume 95.3 fL (78.0-98.0); Mean Platelet Volume 8.2 fL (7.4-10.4); Platelet Count 214 thou/uL (130-400); RBC Distribution Width 15.7 % (11.5-14.5); Red Blood Cell (RBC) Count 3.34 mill/uL (4.70-6.10); White Blood Cell (WBC) Count 9.8 thou/uL (4.8-10.8)
[2020-07-14] MEDS: Propofol 1,000 MG/100 ML VIAL IV PRN ×4 (04:00→21:05)
[2020-07-14 04:05] LABS: ALT (SGPT) 57 U/L (8-55); AST (SGOT) 35 U/L (5-34); Albumin 2.1 g/dL (3.5-5.0); Alkaline Phosphatase 93 U/L (40-110); BUN (Urea Nitrogen) 7 mg/dL (8.9-20.6); Bilirubin, Total 0.8 mg/dL (0.2-1.2); Calc. Creatinine Clearance 288 mL/min (70-130); Calcium 7.9 mg/dL (7.8-10.44); Globulin 3.1 g/dL (2.4-3.5); Glucose 139 mg/dL (70-105); Protein, Total 5.2 g/dL (6.0-8.3)
[2020-07-14 04:23] LABS: Chloride 93 mmol/L (98-107); Potassium 3.4 mmol/L (3.5-5.1); Sodium 142 mmol/L (136-145)
[2020-07-14 04:26] LABS: Anion Gap 11 mmol/L (10-20)
[2020-07-14 04:32] LABS: Carbon Dioxide 41 mmol/L (22-29)
[2020-07-14] MEDS: Hydrocortisone Sod Succ/PF 100 mg/2 ml Vial IVP SCH ×3 (05:45→17:33)
--- NOTE | 2020-07-14 05:46 | PDOC.FM ---
- Subjective Subjective: No acute changes overnight. ROS unobtainable 2/2 intubation. Lovenox being held for bleeding. - Objective MAR Reviewed: Yes Vital Signs & Weight: Vital Signs (12 hours) Pulse Resp Pulse Ox 07/14/20 04:00 15 07/14/20 02:24 108 H 07/14/20 02:00 18 07/14/20 01:00 35 H 07/14/20 00:00 24 H 07/13/20 22:00 24 H 07/13/20 21:42 110 H 07/13/20 20:00 23 H 93 L 07/13/20 18:25 110 H Weight Admit Weight 94.347 kg Weight 86.3 kg Most Recent Monitor Data Heart Rate from ECG 103 NIBP 122/68 NIBP BP-Mean 86 Respiration from ECG 19 SpO2 84 I&O: 07/12/20 07/13/20 07/14/20 06:59 06:59 06:59 Intake Total 2895.6 3667.4 2290 Output Total 1466 2490 1605 Balance 1429.6 1177.4 685 Result Diagrams: 07/14/20 03:19 07/14/20 03:19 Phys Exam - Physical Examination Constitutional: NAD Respiratory: no wheezing, no rhonchi Crackles bilaterally Cardiovascular: RRR, no significant murmur, no rub Gastrointestinal: soft, non-tender, no distention, positive bowel sounds 2+ edema Opens eyes to voice, no movement to pain, does not follow commands Dx/Plan - Plan Plan: 45 y/o male with an unremarkable PMH who presented to the ER for evaluation of SOB. AHRF 2/2 COVID PNA, possible Bacterial Co-Infection on Vent (Bilevel) -Symptoms reportedly began on 06/07, positive test on 06/11 -Patient is currently intubated and sedated, s/p Remdesivir * s/p Ceftriaxone for 7D (started 06/12, Completed on 06/18), Vanc (06/20-07/05), Meropenem(06/30-07/05), Fluconazole (06/21-07/03) -Hydrocortisone on 06/25, previously on Dexamethasone 6 mg IV daily -D-Dimer: 1 > 6.16 - currently on Therapeutic Lovenox -Vit C, Vit D, Zinc, colchicine -Bilevel: , FiO2 100% -UCx: NGTD -Pulm: Consulted, recs appreciated -CXR on 06/22 demonstrated possibly Hydropneumothorax - s/p left chest tube placement by Pulm draining serosanguinous fluid. CXR on 06/24 with right apical pneumo, XR to be evaluated no change in management. -Bilateral chest tubes present. Pt is redeveloping a pneumo on right 07/05. -Will need continuous re-eval for end point on CT -overall, extremely poor prognosis at this time, unable to wean from vent, will continue to monitor Bleeding Concern Bright red blood in mouth during oral care yesterday - thx lovenox held at this time. Consider restarting @ DVT ppx dose instead of thx Bacteremia, Course Completed Staph epi at 2 site on 06/20 -BCx: MRSA sensitive to vanc, doxy, and levaquin. S/p Abx treatment. -Pt recultured on 06/30 Transaminitis, Resolved - Likely 2/2 COVID - Hepatitis Panel: Negative Hypernatremia, Resolved Na: 147 > 141 -Increased free water to make up for deficit Normocytic Anemia -Hgb : 13.6 > 10.4 -Changed Protonix to BID for previous blood in NG tube Elevated Troponin, Resolved -Trop: 0.06 > 0.1 > 0.06 -Likely due to demand ischemia and COVID PNA Elevated Blood Pressure -Will monitor, has prns on Diet: Tube Feeds, Professor Of Engineering consulted VTE PPx: Th. Lovenox (Held 07/12-) Lines/Tube: L Chest tube (06/22), R Chest tube (06/24), Castanon Bi-level Respiratory Support - 35/, FiO2 100% Drips: propofol, midazolam, fentanyl ABX/Antifungal: None Code Status: DNR PCP: CC Dispo: Pt had no interval change overnight. Will continue current management at this time, will consider transitioning to prophylactic instead of therapeutic lovenox after 48 hr hold. Addendum - Attending - Attending Attestation Date/Time: 07/14/20 3923 I personally evaluated the patient and discussed the management with Dr. Blackwell. I agree with the History, Examination, Assessment and Plan documented above with any addition or exceptions noted below. Significant alkalosis, which I expect is compensatory and can send ABG to confirm. He is not being diuresed. He is essentially on maximum ventilator settings.
[2020-07-14] MEDS: Mometasone 200 MCG/Formoterol 5 MCG 120 PUFF INHALER INH SCH ×2 (07:43→19:05)
[2020-07-14] MEDS: Colchicine 0.6 MG TAB PER TUBE SCH ×2 (08:06→21:12)
[2020-07-14] MEDS: Ascorbic Acid 500 mg Chewable Tablet PO SCH (08:16)
[2020-07-14] MEDS: Zinc Sulfate 220 MG CAP PO SCH (08:16)
[2020-07-14] MEDS: Pantoprazole 40 MG VIAL IVP SCH ×2 (08:16→21:05)
[2020-07-14] MEDS: Polyethylene Glycol 3350 17 GM Packet PER TUBE SCH (08:17)
[2020-07-14] MEDS: Chlorhexidine Gluconate 15 ML UDCUP SSP SCH ×2 (08:22→21:06)
[2020-07-14] MEDS ORDERED: Potassium Chloride 40 MEQ in Sodium Chloride 0.9% 250 ML 250 ML IVPB SCH (08:45)
--- NOTE | 2020-07-14 09:00 | RAD ---
CHEST 1 VIEW: Date: 07/14/2020 INDICATION: History of pneumonia. COMPARISON: Prior exam dated 07/13/2020. IMPRESSION: Bilateral pneumonia is stable. Bilateral chest tubes, ET tube, and gastric catheter are unchanged. No pneumothorax is evident. POS: BH
[2020-07-14] MEDS: Senokot S 8.6-50 MG TAB PER TUBE SCH ×2 (09:24→21:13)
[2020-07-14] MEDS ORDERED: Fentanyl CADD 100 ML ONE ×2 (10:41→23:40)
--- NOTE | 2020-07-14 15:20 | PRG ---
DATE OF SERVICE: 07/14/2020 SUBJECTIVE: Skuhdev Vincent is still mechanically ventilated. His FiO2 is at 100%. His sats were 80% when I was in the room earlier. OBJECTIVE: VITAL SIGNS: Blood pressure was 104/57. LUNGS: He has equal breath sounds. HEART: Regular rhythm. ABDOMEN: Soft. EXTREMITIES: Without asymmetry. LABORATORY DATA: White count 9.8, hemoglobin 10, and platelets 214,000. Sodium 142, potassium 3.4, chloride 93, bicarb 41, BUN 7, and creatinine 0.4. ASSESSMENT AND PLAN: Bicarbonate undoubtedly is because of an elevated pCO2 with his severe respiratory failure. He has reached to a point where there are no therapeutic options for him. We will increase his chances of survival. Job ID: [id number]
[2020-07-14 18:08] LABS: Potassium 3.4 mmol/L (3.5-5.1)
[2020-07-14] MEDS: Cholecalciferol 1,000 UNITS (25 MCG) TAB PO SCH (21:05)
[2020-07-14] MEDS: Acetaminophen 650 MG/20.3 ML UDCUP PO PRN (21:05)
[2020-07-14] MEDS: Enoxaparin Sodium 80 MG/0.8 ML SYRINGE SC SCH (21:07)
[2020-07-15] MEDS: Hydrocortisone Sod Succ/PF 100 mg/2 ml Vial IVP SCH ×3 (01:06→11:26)
[2020-07-15] MEDS: Propofol 1,000 MG/100 ML VIAL IV PRN ×3 (04:05→11:30)
[2020-07-15] MEDS: Acetaminophen 650 MG/20.3 ML UDCUP PO PRN (05:55)
[2020-07-15] MEDS: Enoxaparin Sodium 80 MG/0.8 ML SYRINGE SC SCH (07:18)
[2020-07-15] MEDS: Polyethylene Glycol 3350 17 GM Packet PER TUBE SCH (07:18)
[2020-07-15] MEDS: Senokot S 8.6-50 MG TAB PER TUBE SCH (07:18)
[2020-07-15] MEDS: Zinc Sulfate 220 MG CAP PO SCH (07:18)
[2020-07-15] MEDS: Pantoprazole 40 MG VIAL IVP SCH (07:18)
[2020-07-15] MEDS: Potassium Chloride 20 MEQ in Premix Bag 1 BAG IVPB SCH ×2 (07:18→09:10)
--- NOTE | 2020-07-15 07:18 | PDOC.FM ---
- Subjective Subjective: Patient intubated, sedated and paralyzed. - Objective MAR Reviewed: Yes Vital Signs & Weight: Vital Signs (12 hours) Resp Pulse Ox 07/15/20 07:03 35 H 96 07/15/20 06:00 39 H 07/15/20 04:00 40 H 07/15/20 02:00 35 H 07/15/20 00:00 37 H 80 L 07/14/20 22:00 31 H 07/14/20 20:00 33 H 07/14/20 19:55 84 L Weight Admit Weight 94.347 kg Weight 86.3 kg Most Recent Monitor Data Heart Rate from ECG 129 NIBP 135/74 NIBP BP-Mean 94 Respiration from ECG 24 SpO2 92 I&O: 07/14/20 07/15/20 07/16/20 06:59 06:59 06:59 Intake Total 2290 3974.2 180 Output Total 1755 3940 10 Balance 535 34.2 170 Result Diagrams: 07/14/20 03:19 07/14/20 17:47 Phys Exam - Physical Examination Constitutional: NAD HEENT: moist MMs pupils pinpoint without reactivity Respiratory: no wheezing scattered rhonchi Cardiovascular: no significant murmur tachycardic Gastrointestinal: soft, non-tender Musculoskeletal: edema present (in UE) Dx/Plan - Plan Plan: 45 y/o male with an unremarkable PMH who presented to the ER for evaluation of SOB. Prognosis: poor. Consulted Dr. Rodriguez today due to persistent fever. Ethics committee determined futile care. Want to have Dr. Rodriguez' expert opinion as well on this case especially in light of non-resolving fever to be complete. AHRF 2/2 COVID PNA, possible Bacterial Co-Infection on Vent (Bilevel) -Symptoms reportedly began on 06/07, positive test on 06/11 -Patient is currently intubated and sedated, s/p Remdesivir * s/p Ceftriaxone for 7D (started 06/12, Completed on 06/18), Vanc (06/20-07/05), Meropenem(06/30-07/05), Fluconazole (06/21-07/03) -Hydrocortisone IV -Vit C, Vit D, Zinc, colchicine -Bilevel: /, FiO2 100% -Pulm: Consulted, recs appreciated -CXR on 06/22 demonstrated possibly Hydropneumothorax - s/p left chest tube placement by Pulm draining serosanguinous fluid. CXR on 06/24 with right apical pneumo, XR to be evaluated no change in management. -Bilateral chest tubes present. Small apical pneumothorax, stable. Tubes continue to drain -Will need continuous re-eval for end point on CT -overall, extremely poor prognosis at this time, unable to wean from vent, will continue to monitor Bleeding from mouth - th LVX held Bacteremia, Course Completed Staph epi at 2 site on 06/20 -BCx: MRSA sensitive to vanc, doxy, and levaquin. S/p Abx treatment. -Pt recultured on 06/30: no growth Transaminitis - Likely 07/09 COVID - Hepatitis Panel: Negative Normocytic Anemia -Hgb : 13.6 > 10.4 -Changed Protonix to BID for previous blood in NG tube Elevated Blood Pressure -Will monitor, has prns on Diet: Tube Feeds, Oven Worker consulted VTE PPx: Th. Lovenox (Held from 07/12 - present) Lines/Tube: L Chest tube (06/22), R Chest tube (06/24), Cast[place], ET tube, OG tube Bi-level Respiratory Support - 35/15, FiO2 100% Drips: propofol, midazolam, fentanyl ABX/Antifungal: None Code Status: DNR PCP: EMELY Dispo: inpatient, CCU. Addendum - Attending - Attending Attestation Date/Time: 07/15/20 [id number] I personally evaluated the patient and discussed the management with Dr. Solomon. I agree with the History, Examination, Assessment and Plan documented above with any addition or exceptions noted below.
[2020-07-15] MEDS: Mometasone 200 MCG/Formoterol 5 MCG 120 PUFF INHALER INH SCH (07:19)
[2020-07-15] MEDS: Chlorhexidine Gluconate 15 ML UDCUP SSP SCH (07:19)
[2020-07-15] MEDS: Ascorbic Acid 500 mg Chewable Tablet PO SCH (07:19)
--- NOTE | 2020-07-15 08:23 | RAD ---
EXAM: Single view of the chest HISTORY: Pneumonia COMPARISON: 07/14/2020 FINDINGS: Single view of the chest shows a normal sized cardiomediastinal silhouette. The lines and tubes are unchanged in position. A small right apical pneumothorax is visualized. Scattered multifocal infiltrates are seen in the lungs. Degenerative changes are seen in the spine. IMPRESSION: 1. Stable multifocal infiltrates 2. Small right apical pneumothorax
[2020-07-15] MEDS: Colchicine 0.6 MG TAB PER TUBE SCH (09:09)
--- NOTE | 2020-07-15 11:18 | PRG ---
DATE OF SERVICE: 07/15/2020 35-minutes critical care time. SUBJECTIVE: The patient remains intubated, on mechanical ventilation. Continues to have bilateral chest tubes in place. He is on 100% oxygen on assist-control ventilation. He is on some sedation, but does not move much once stimulated. OBJECTIVE: VITAL SIGNS: Temperature is 99.7, with a T-max of 101.5, pulse 118, blood pressure 115/61. GENERAL: He is intubated and sedated. HEENT: Periorbital edema. NECK: No JVD. LUNGS: Coarse breath sounds. CARDIAC: S1 and S2, regular. ABDOMEN: Soft. EXTREMITIES: Edematous. He has an air leak through his left chest tube. His x-ray is otherwise unchanged. LABORATORY DATA: No new labs were done today. ASSESSMENT: 1. Coronavirus disease 2019 pneumonia. 2. Persistent respiratory failure. 3. No signs of improvement. PLAN: Discussed with his at bedside. My belief is that she does not want to have the guilt associated with stopping care on her . I told her that her feelings were natural, and that at this point, prolonging the inevitable is just causing him to suffer and causing her to suffer. I doubt that she is ever going to make a decision on this and the hospital likely have to follow through with the [place] Natural Act as was started last week. I have reviewed the orders. I see nothing additional to add at this time. Job ID: [id number]
[2020-07-15 14:11] VITALS: BMI 29.7
[2020-07-15 14:35] VITALS: BP 134/92
[2020-07-15] MEDS ORDERED: Morphine 4 MG/ML VIAL SLOW IVP PRN (14:45)
--- NOTE | 2020-07-15 15:30 | PDOC.BPN ---
- Brief Progress Note Father Rufino at patient's room. Family has decided to extubate.
--- NOTE | 2020-07-16 07:17 | DIS ---
DATE OF ADMISSION: 06/11/2020 DATE OF DISCHARGE: 07/15/2020 SUMMARY: ATTENDING: Scott Holden MD RESIDENT: Viky Solomon MD DATE OF : 07/15/2020. TIME OF : 1551 hours. CAUSE OF : COVID pneumonia. SECONDARY DIAGNOSES: 1. Obesity. 2. Normocytic anemia. 3. Transaminitis. 4. Hyponatremia. 5. Elevated troponin. 6. Left hydropneumothorax requiring chest tubes bilaterally. HISTORY OF PRESENT ILLNESS/HOSPITAL COURSE: This 45-year-old male with past medical history of obesity, was admitted on June 11, 2020, due to shortness of breath from COVID. He was initially placed on high-flow nasal cannula, anticoagulated with Lovenox, treated with a course of ceftriaxone and remdesivir, and started on steroids. He received azithromycin in the emergency room as well. The patient then had severe hypoxia on June 13 requiring intubation. Pulmonology was consulted and started the patient on vitamin C, vitamin D, and zinc. Due to gram-positive cocci consistent with Staphylococcal bacteremia and suspicion for secondary bacterial infection, the patient was treated with Zosyn, fluconazole, vancomycin, and meropenem. The patient had a left chest tube placed on June 22 and a right chest tube placed on June 24. His chest tubes continued to output fluid until his date of . The patient remained intubated, paralyzed, and sedated throughout his hospital stay and eventually progressed to requiring bilevel ventilation with 100% fraction of inspired oxygen. Palliative Care was consulted due to the patient's poor prognosis. Spiritual Care was also consulted. The family finally decided on July 15 that they would compassionately extubate. The patient was extubated at 1536 hours and at 1551 hours. Time of was confirmed at [address] Viky Solomon. Family did not request an autopsy. Orders were given to remove all lines and release the body to the morgue. Job ID: [id number]
--- NOTE | 2020-07-19 06:47 | PQF ---
CLINICAL DOCUMENTATION CLARIFICATION FORM: Dear : Scott Holden Date / Time: 07/19/2020 Please exercise your independent, professional judgment in responding to the clarification form. Clinical indicators are provided on the bottom of this form for your review Please check appropriate box(es): [ x ] Sepsis [ ] Localized infection without sepsis [ ] Other diagnosis [ ] Unable to determine In addition, please specify: Present on Admission (POA): [ x ] Yes [ ] No [ ] Unable to determine To be completed by CDI/Coding staff for physician review: Present Clinical Indicators - Signs / Symptoms / Labs Results and Location in Medical Record [ x ] Sepsis alert, cultures, fluids, IV antibiotics with Rocephin and azithromycin ED provider notes [ x ] Heart rates were 126, 121, 109 and 101. Respiratory rates were 27, 22, and 19 ED provider notes [ x ] Temperatures were 102.1, 100.4 and 100.3 ED provider notes [ x ] Elevated lactic acid, lactic 3.0, repeat pending. IV maintenance fluids until patient can improve po intake H and P [ x ] WBCs 13.3, 12.4, 15.8 and 11.8 Laboratory Present Risk Factors Results and Location in Medical Record [ x ] COVID-19 pneumonia, acute hypoxic respiratory failure H and P [ ] Pneumonia, UTI, infected wound, gangrenous gall bladder Diabetes or Cancer [ ] Surgery / surgical instrumentation / trauma Ruptured/perforated bowel, ruptured appendix [ ] Immunosuppression [ ] Advancing Age Present Treatments Results and Location in Medical Record [ x ] IV Rocephin Medications [ x ] IV azithromycin Medications [ x ] IV fluids Medications [ x ] Daily CBCs Medications CDS/Lens Dotter Signature: [id number] Phone #: Date/Time: 07/19/2020 This is a permanent part of the Medical Record [facility]
== END 2020-07-15 15:51 | disposition expired | DRG 870 ==
LOC: ERS 13:35 → ERHOLD 15:16 → 2SE 20:30 → CCU 06-13 07:25
PROVIDERS: ADMIT Student in an Organized Health Care Education/Training Program; ATTEND Family Medicine
PROC: 8E0ZXY6 Isolation (ICD-10-PCS; 2020-06-11)
PROC: XW033E5 Introduction of Remdesivir Anti-infective into Peripheral Vein, Percutaneous Approach, New Technology Group 5 (ICD-10-PCS; 2020-06-11)
PROC: 5A1955Z Respiratory Ventilation, Greater than 96 Consecutive Hours (ICD-10-PCS; principal; 2020-06-13)
PROC: 0BH18EZ Insertion of Endotracheal Airway into Trachea, Via Natural or Artificial Opening Endoscopic (ICD-10-PCS; 2020-06-13)
PROC: 5A09357 Assistance with Respiratory Ventilation, Less than 24 Consecutive Hours, Continuous Positive Airway Pressure (ICD-10-PCS; 2020-06-13)
PROC: 0T9B70Z Drainage of Bladder with Drainage Device, Via Natural or Artificial Opening (ICD-10-PCS; 2020-06-13)
PROC: 0W9B00Z Drainage of Left Pleural Cavity with Drainage Device, Open Approach (ICD-10-PCS; 2020-06-22)
PROC: 0W9900Z Drainage of Right Pleural Cavity with Drainage Device, Open Approach (ICD-10-PCS; 2020-06-24)
DX: A41.89 Other specified sepsis (principal); U07.1 COVID-19; J12.82 Pneumonia due to coronavirus disease 2019; J96.01 Acute respiratory failure with hypoxia; J94.8 Other specified pleural conditions; I24.8 Other forms of acute ischemic heart disease; E87.1 Hypo-osmolality and hyponatremia; J93.9 Pneumothorax, unspecified; E87.0 Hyperosmolality and hypernatremia; R78.81 Bacteremia; Z16.39 Resistance to other specified antimicrobial drug; Z66 Do not resuscitate; E66.01 Morbid (severe) obesity due to excess calories; D64.9 Anemia, unspecified; R73.9 Hyperglycemia, unspecified; R74.01 Elevation of levels of liver transaminase levels; B95.7 Other staphylococcus as the cause of diseases classified elsewhere; R03.0 Elevated blood-pressure reading, without diagnosis of hypertension; K13.79 Other lesions of oral mucosa; F41.9 Anxiety disorder, unspecified; I10 Essential (primary) hypertension; Z68.29 Body mass index [BMI] 29.0-29.9, adult
CPT/HCPCS: 0002A; 0240U; 36415; 36416; 36600; 71045; 71275; 80048; 80053; 80074; 80202; 81003; 81015; 82553; 82607; 82728; 82746; 82805; 82977; 83036; 83540; 83550; 83605; 83880; 84145; 84484; 85025; 85379; 85610; 85730; 87040; 87077; 87086; 87149; 87186; 91300; 93005; 94002; 94003; 94660; 94664; 94760; 96365; 96366; 96372; 96375; C9113; J0456; J0696; J1100; J1650; J1720; J1940; J2060; J2185; J2270; J2543; J2704; J3010; J3370; J3480; J3490; J7030; J7050; J8540; Q9967